=== PATIENT | male | born 1935 | race Caucasian/White ===

== ENCOUNTER 2018-03-06 18:18 | Emergency (ER) | payer MEDICARE, SELFPAY ==
[2018-03-06 18:19] VITALS: BP 169/91; PULSE 95; RESP 16; TEMP 36.8; O2SAT 97; BMI 24.2
--- NOTE | 2018-03-06 18:51 | CT_ITS ---
STUDY: CT ABDOMEN AND PELVIS WITHOUT CONTRAST REASON FOR EXAM: Male, 82 years old. Left lower abdominal pain. Possible hernia. RADIATION DOSAGE (If Supplied By Facility): CTDIvol = ( 7.5 ) mGy, DLP = ( 367.21 ) mGycm TECHNIQUE: Transaxial images were obtained from the dome of the diaphragm to the symphysis pubis with oral contrast, and without intravenous contrast. Sagittal and coronal images were reconstructed. Individualized dose optimization techniques were used for this CT. COMPARISON: None. FINDINGS: The visualized lung bases are unremarkable. The visualized portions of the heart are within normal limits. Please note the lack of intravenous contrast limits evaluation of solid visceral organs. There are scattered well-circumscribed low-attenuation foci within the liver the largest measuring up to 1.4 cm which may reflect underlying cysts or hemangiomas. There are gallstones within the gallbladder. Normal spleen. Normal pancreas. Normal bilateral adrenal glands. There is a round 12 mm high attenuation focus arising from the right kidney which may reflect a proteinaceous cysts. Normal left kidney. There is a small hiatal hernia. Normal small intestine. There are multiple colonic diverticula consistent with diverticulosis. There is a moderate-sized left inguinal hernia into which a segment of sigmoid colon herniates. There is no bowel obstruction. The appendix is visualized and appears normal. There is diffuse atherosclerotic calcification of the abdominal aorta, without a demonstrated aneurysm. Normal inferior vena cava. Normal retroperitoneum. Normal urinary bladder. There is enlargement of the prostate gland. There are diffuse degenerative changes of the visualized lumbar spine. There is a grade 1 anterior spondylolisthesis of L5 on S1. CT/Abdomen/Pel W ORAL Cont Only IMPRESSION: Left inguinal hernia containing a segment of sigmoid colon without evidence of an associated obstruction. Colonic diverticulosis. Atherosclerosis. Cholelithiasis. Indeterminate high attenuation focus arising from the right kidney which may reflect underlying proteinaceous cysts, consider ultrasound for further evaluation. Hiatal hernia. Enlarged prostate gland. Electronically Signed: Kady Higgins MD at 21:11 EST Tel , Service support ,
[2018-03-06 19:26] LABS: Absolute Lymphocyte Count 1.75 X10^3/ul (0.83-4.51); Absolute Neutrophil Count 4.8 X10^3/uL (2.0-7.7); Basophil# 0.03 X10^3/uL; Basophil% 0.4 % (0-1); Eosinophil# 0.16 X10^3/uL; Eosinophils% 2.2 % (0-5); Hematocrit 47.3 % (40-54); Hemoglobin 15.8 g/dl (13.0-16.5); Lymphocyte # 1.75 X10^3/ul (4.0); Lymphocyte % 23.7 % (19-41); Mean Corp Hgb Conc 33.4 g/gl (32-36); Mean Corpuscular Hgb 31.2 pg (27.0-32.0); Mean Corpuscular Volume 93.5 fL (80-94); Mean Platelet Vol. 10.7 fl (6.2-12.0); Monocyte# 0.63 X10^3/uL; Monocyte% 8.5 % (0-10); Neutrophil # 4.79 X10^3/uL (2.7-7.7); Neutrophil % 64.9 % (47-70); Platelet Count 234 K/mm3 (150-450); RBC Distribution Width CV 13.8 % (11.6-14.6); RBC Distribution Width SD 46.6 fl (35.1-43.9); Red Blood Count 5.06 M/mm3 (4.6-6.2); White Blood Count 7.4 K/mm3 (4.4-11.0)
[2018-03-06] MEDS: 0.9% Normal Saline 1,000 ML 125 ML IV (19:29)
[2018-03-06 19:38] LABS: POSITIVE COUNT NO; POSITIVE DIFFERENTIAL NO; POSITIVE MORPHOLOGY NO
[2018-03-06 20:03] LABS: Anion Gap 9 (5-15); BUN 9 mg/dL (7-18); BUN/Creat Ratio 9.3 RATIO (10-20); Calcium,Total 8.9 mg/dL (8.5-10.1); Chloride 108 mmol/L (98-107); Creatinine, Serum 0.96 mg/dL (0.70-1.30); EST Glomerular Filtration Rate 79 mL/min (>60); Est Glom Filt Rate - Afr Amer 96 mL/min (>60); Estimated Creatinine Clearance 54.51 ml/min; Glucose 98 mg/dL (74-106); Sodium Level 141 mmol/L (136-145)
[2018-03-06 20:08] LABS: Lactic Acid 1.1 mmol/L (0.4-2.0)
[2018-03-06 20:18] LABS: Bacteria 0 SEEN /hpf (None Seen); Mucous, Urine 0 SEEN /hpf (<or=2+); Red Blood Cells-Urine 0 SEEN /hpf (0-5); Squamous Epithelial Cells - UA 0 SEEN /hpf (0-5); White Blood Cells 0 SEEN /hpf (0-5)
[2018-03-06 20:25] LABS: Color, Urine Yellow (Yellow); Glucose, Dipstick Normal (Normal); Ketone-Dipstick Negative (Negative); Leukocyte Esterase-Dipstick 25 /ul (Negative); Nitrite-Dipstick Negative (Negative); Occult Blood-Urine 10 /ul (Negative); Protein-Dipstick Negative (Negative); Specific Gravity, Urine 1.015 (1.002-1.030); Urine Bilirubin Dipstick Negative (Negative); Urine Clarity Clear (Clear); Urine Urobilinogen Normal (Normal)
[2018-03-06 21:27] VITALS: RESP 16
--- NOTE | 2018-03-06 21:50 | ED.VISSUMM ---
- ER Visit Summary Date of Service: 03/06/18 Chief Complaint: [Abdominal pain] History of Present Illness: The patient is a 82 M [presents to the emergency department complaint of abdominal pain for about a month. Patient thinks he might have a hernia. Patient states that at times it feels like his left testicle can get sucked up into his abdomen and he asked the help bring it back down. Patient denies any fever or vomiting. He denies any blood in the stool or black tarry stool. Last bowel movement was earlier today. He denies any difficulty urinating. Patient denies any trauma to his abdomen.] Physical Examination: [HEENT-PERRLA, EOMI. Cranial nerves II through XII grossly intact. TMs clear. Mucous membranes moist. No adenopathy. Cardiovascular-regular rate and rhythm without murmur or ectopy Lungs-clear to auscultation, chest wall stable without crepitus or subcu emphysema Abdomen-normoactive bowel sounds, soft. Patient has tenderness to palpation over the left inguinal area with an area of fullness noted. Testicles are nontender and descended. Patient is not circumcised. There is no erythema or discoloration over the suspected hernia. Extremities-intact ?4, normal range of motion, normal pulses, atraumatic] Test Results: [CBC with differential obtained was normal. Chemistries were normal. Lactate was 1.1. Urinalysis was normal. CT scan of the abdomen pelvis with p.o. contrast obtained showed left inguinal hernia containing a segment of sigmoid colon without evidence of an associated obstruction. He had colonic diverticulosis. He had atherosclerosis. He had cholelithiasis. He had indeterminate high attenuation focus arising from the right kidney which may reflect underlying proteinaceous cyst consider ultrasound for further evaluation. Patient also had a hiatal hernia. Patient also noted to have enlarged prostate gland.] Emergency Department Course and Treatment: [Patient case will be discussed with surgeon on-call for follow-up.] Treatment Plan: [Patient will be given a prescription for Leblanc for pain. Patient advised use a stool softener daily.] Disposition: [Discharged home in stable condition] Impression: [Left inguinal hernia] This note was generated with [employer] software. It may contain incorrect words, spelling, and punctuation that were not noted in review of the chart prior to signing ED Disposition - Plan for ED Patient: Chief Complaint: Abd Pain Referrals: Pavan Rossi III, MD [Primary Care Provider] -
--- NOTE | 2018-03-06 21:53 | ED.DCSUM_ITS ---
- ER Visit Summary Date of Service: 03/06/18 Chief Complaint: [Abdominal pain] History of Present Illness: The patient is a 82 M [presents to the emergency department complaint of abdominal pain for about a month. Patient thinks he might have a hernia. Patient states that at times it feels like his left t esticle can get sucked up into his abdomen and he asked the help bring it back down. Patient denies any fever or vomiting. He denies any blood in the stool or black tarry stool. Last bowel movement was earlier today. He denies any difficulty urinating. Patient denies any trauma to his abdomen.] Physical Examination: [HEENT-PERRLA, EOMI. Cranial nerves II through XII cristal ssly intact. TMs clear. Mucous membranes moist. No adenopathy. Cardiovascular-regular rate and rhythm without murmur or ectopy Lungs-clear to auscultation, chest wall stable without crepitus or subcu emphysema Abdomen-normoactive bowel sounds, soft. Patient has tenderness to palpation over the left inguinal area with an area of fullness noted. Testicles are nontender and descended. Patient is not circumcised. There is no erythema or discoloration over the suspected hernia. Extremities-intact ?4, normal range of motion, normal pulses, atraumatic] Test Results: [CBC with differential obtained was normal. Chemistries were normal. Lactate was 1.1. Urinalysis was normal. CT scan of the abdomen pelvis with p.o. contrast obtained showed left inguinal hernia containing a segment of sigmoid colon without evidence of an associated obstruction. He had colonic diverticulosis. He had atherosclerosis. He had cholelithiasis. He had indeterminate high attenuation focus arising from the right kidney which may reflect underlying proteinaceous cyst consider ultrasound for further evaluation. Patient also had a hiatal hernia. Patient also noted to have enlarged prostate gland.] Emergency Department Course and Treatment: [Patient case will be discussed with surgeon on-call for follow-up.] Treatment Plan: [Patient will be given a prescription for [place]cloud for pain. Patient advised use a stool softener daily.] Disposition: [Discharged home in stable condition] Impression: [Left inguinal hernia] This note was generated with [employer] software. It may contain incorrect words, spelling, and punctuation that were not noted in review of the chart prior to signing ED Disposition - Plan for ED Patient: Chief Complaint: Abd Pain Referrals: Pavan Rossi III, MD [Primary Care Provider] -
--- NOTE | 2018-03-06 21:54 | DCINST.ED_ITS ---
ED Disposition - Plan for ED Patient: Chief Complaint: Abd Pain Instructions: ED Hernia Inguinal Prescriptions: Hydrocodone Bitart/Apap 5-325 [Candia 5MG-325MG] 1 tab PO Q4H PRN PRN 2 Days #14 tab PRN Reason: Pain Referrals: Pavan Rossi III, MD [Primary Care Provider] - Ander Rossi MD [STAFF PHYSICIAN] - 3-5 Days
[2018-03-06 22:14] VITALS: BP 159/93; PULSE 83; RESP 16; O2SAT 95
--- NOTE | 2018-03-06 22:15 | ED.RN ---
HOME PACK OF NORCO GIVEN PER MD ORDER. REVIEWED D/C INSTRUCTIONS, FOLLOW UP CARE, PRESCRIPTION, AND S/S THAT WOULD WARRANT A RETURN TO THE ED WITH PT. PT VERBALIZED AN UNDERSTANDING AND DENIES FURTHER QUESTIONS FOR THIS RN. PT SKIN P/W/D, RESP EVEN AND UNLABORED, PT A&O X 3, NO DISTRESS NOTED. PT AMBULATED OUT OF ED, GAIT STEADY.
== END 2018-03-06 22:17 | disposition home or self-care (01) ==
LOC: ED 19:13
PROVIDERS: Emergency Provider Emergency Medicine; Family Provider Family Medicine; PCP Family Medicine
DX: K40.90 Unilateral inguinal hernia, without obstruction or gangrene, not specified as recurrent (principal); K57.30 Diverticulosis of large intestine without perforation or abscess without bleeding; K80.20 Calculus of gallbladder without cholecystitis without obstruction; K44.9 Diaphragmatic hernia without obstruction or gangrene; I70.90 Unspecified atherosclerosis; N40.0 Benign prostatic hyperplasia without lower urinary tract symptoms
CPT/HCPCS: 74176; 80048; 81001; 83605; 85025; 96360; 96361; 99284; J7030; Q9967; A4216

== ENCOUNTER → 2018-03-13 08:43 | Outpatient (CLI) | payer MEDICARE, SELFPAY ==
[2018-03-12 14:33] VITALS: BMI 24.2
--- NOTE | 2018-03-13 08:47 | US_ITS ---
STUDY: ABDOMINAL ULTRASOUND - RIGHT UPPER QUADRANT REASON FOR VISIT: Male, 82 years old. Follow-up of gallstones, kidney mass TECHNIQUE: Ultrasound evaluation of the right upper quadrant was performed with real-time and static lopez-scale imaging. TECHNICAL QUALITY: Limited. Examination limited by bowel gas. COMPARISON: None. FINDINGS: Liver: The liver measures 15.7 cm. There is increased echogenicity consistent with fatty infiltration. The bile ducts are within normal limits. There is hepatic color flow. The direction of portal flow is hepatopetal. There is a 1.8 x 1.9 x 1.4 cm hepatic cyst. Gallbladder: Normal distended gallbladder. The gallbladder wall measures 2.8 mm. There is a negative sonographic Downs's sign. There is no pericholecystic fluid. There is a solitary echogenic gallstone within the gallbladder. Common Bile Duct (C.B.D.): The common bile duct measures 4.9 mm. Pancreas: There is diffuse atrophy of the pancreas. There is increased echogenicity of the pancreas. There is no demonstrated pancreatic mass or cyst. Right Kidney: Normal size of the right kidney. The right kidney measures 10.0 x 5.2 x 5.2 cm. Normal renal cortex. The right cortex measures 1.3 cm. There are 2 right renal cysts measuring 1.1 x 1.3 x 1.6 cm and 1.4 x 1.4 x 1.3 cm. There is no right hydronephrosis. US/Abdomen Limited IMPRESSION: 1. Hepatic cyst measuring 1.8 x 1.9 x 1.4 cm. 2. Cholelithiasis. There is no gallbladder wall thickening or pericholecystic fluid. 3. The pancreas is atrophic and demonstrates diffusely increased echogenicity. 4. 2 right renal cysts as described above. Electronically Signed: Chilo Marrufo MD at 17:03 EST , Service support ,
--- OUTSIDE RECORDS SUMMARY | 2018-05-18 00:01 | XMS RPT_ITS ---
:1935 Author Organization OHIP Support Name Relationship Address Phone MARY PELLETIER Unavailable [address] [place] [address] DR + [place] [address] EMANI PAYNE Unavailable [address] + [place] [address] R Unavailable Unavailable Unavailable MARY PELLETIER Unavailable [address] [place] [address] + [place] [address] EMANI PAYNE Unavailable [address] + [place] [address] R Unavailable Unavailable Unavailable MARY PELLETIER Unavailable [address] [place] [address] DR + [place] [address] EMANI PAYNE Unavailable [address] + [place] [address] R Unavailable Unavailable Unavailable MARY PELLETIER Unavailable [address] [place] [address] DR + [place] [address] EMANI PAYNE Unavailable [address] + [place] [address] R Unavailable Unavailable Unavailable MARY PELLETIER Unavailable [address] [place] [address] DR + [place] [address] EMANI PAYNE Unavailable [address] + [place] [address] R Unavailable Unavailable Unavailable MARY PELLETIER Unavailable [address] [place] [address] DR + [place] [address] EMANI PAYNE Unavailable [address] + [place] [address] R Unavailable Unavailable Unavailable YUAN PELLETIEREN Unavailable [address] + [place] [address] FÉLIXCORTEZHILLARYARIADNESATNAM SHELTONJolene Unavailable [address] + [place] [address] R Unavailable Unavailable Unavailable MARY PELLETIER Unavailable [address] + [place] [address] JORGEAJITHSATNAMJolene Unavailable [address] + [place] [address] R Unavailable Unavailable Unavailable MARY PELLETIER Unavailable [address] + [place] [address] FÉLIXEVITASATNAMJolene Unavailable [address] + [place] [address] R Unavailable Unavailable Unavailable Care Team Providers Name Role Phone Cebul III, Pavan Primary Care Unavailable Abhijit Bateman Attending Unavailable Cebul, Ander Attending Unavailable Cebul III, Pavan Referring Unavailable Cebul, Ander Attending Unavailable Cebul, Ander Referring Unavailable Cebul III, [place] Primary Care Unavailable Cebul, Ander Attending Unavailable Cebul, Ander Referring Unavailable Cebul III, [place] Primary Care Unavailable Cebul, Ander Attending Unavailable Cebul, Ander Referring Unavailable Cebul III, [place] Primary Care Unavailable Cebul III, [place] Primary Care Unavailable KittoBehzad muro Admitting Unavailable [place], Behzad Attending Unavailable Eli, [place] Consulting Unavailable [place], Behzad Admitting Unavailable [place], Behzad Attending Unavailable Cebul III, Pavan Primary Care Unavailable KittoeBehzad Consulting Unavailable KittoeBehzad Admitting Unavailable Eli, [place] Attending Unavailable Cebul III, Pavan Primary Care Unavailable Eli, Jace Consulting Unavailable KittoeBehzad Consulting Unavailable KittoBehzad muro Admitting Unavailable Kittojina, Behzad Attending Unavailable Cebul III, Pavan Primary Care Unavailable Eli, [place] Consulting Unavailable Behzad Acosta Consulting Unavailable PROBLEMS PROBLEMS DATE TYPE CONDITION / CODE ATTENDING STATUS SOURCE 03/12/2018 Unknown K80.20 - Calculus Ander Rossi Active [place] [facility] gallbladder [facility] cholecystitis Repository without obstruction / K80.20(ICD-10) 03/12/2018 Unknown N28.89 - Other Ander Rossi Active [place] specified disorders [facility] ureter / Repository N28.89(ICD-10) 03/06/2018 Unknown R10.9 - Unspecified UngurAbhijit Active [place] abdominal pain / Community R10.9(ICD-10) Hospital Repository PROCEDURES PROCEDURES No Procedure Records FoundRESULTS RESULTS DISCHARGE INSTRUCTION Observed: 03/18/2018 Status: F Source: [place] 6:00 PM [facility] REPOSITORY [facility] Medical Records Department [address] [place] [address] Instructions for Home/Discharge Instructions 03/18/18 1042 MR#: [id number] Acct: [id number] Name: RUSS CARSON Rep #: [id number] : 1935 82 From: Ander Rossi MD PCP: Pavan Rossi III, MD Status: DEP [facility] Discharge Diet: Light diet - advance as tolerated - if you have questions about your diet instructions, please talk to you doctor. Discharge Activity: May Not Drive - for 3-5 days or while taking narcotic pain medicine. May shower in (days): 1 Lifting Restrictions: 10 pounds Call your doctor if your incision/area has: Continuous Slow Oozing, Sudden Increased Bleeding, Increased Pain/ Swelling, Increased Redness, Foul Smelling Discharge Call your doctor if you observe: Fever of 101 or Higher Suture Line Care: Avoid Pulling/Pushing, Avoid Pinching/Bending Additional Dressing/Incision Instructions:: Change or remove dressing in 4 days. Leave steri-strips in place for 1 week. Allergies/Adverse Reactions: Allergies Penicillins Allergy (Verified 03/15/18 13:09) Unknown- been 30yrs ago Sulfa (Sulfonamide Antibiotics) Allergy (Verified 03/15/18 13:09) Unknown-been 30yrs ago Medications to take at Discharge tamsulosin 0.4 mg capsule 0.4 mg PO DAILY #30 cap 03/12/18 Primary Care Physician: Pavan Rossi III, MD [Primary Care Provider] - Test Results: Test results from this visit will be discussed in further detail at your follow-up appointment, if applicable. Please Follow Up With: Ander Rossi MD - [phone] When: Call to make an appointment to be seen in about 10 days. 03/18/18 1800 <Electronically signed by Ander Rossi MD> Date Ander Rossi MD CC: Pavan Rossi III, MD Signed OPERATIVE REPORT Observed: 03/18/2018 Status: F Source: [place] 6:00 PM [facility]POSITORY [facility] Medical Records Department [address] [place] [address] Operative Report 03/18/18 1143 MR#: [id number] Acct: [id number] Name: RUSS CARSON Rep #: [id number] : 1935 82 From: Ander Rossi MD PCP: Pavan Rossi III, MD Status: DEP [facility] Y Location: [facility] Problem List (1) Left inguinal hernia Status: Chronic Report of Operation Date of Procedure: 03/18/18 Pre-Operative Diagnosis: Sliding left inguinal hernia Post-Operative Diagnosis: Same Surgery/Procedure Performed:: Laparoscopic left inguinal herniorrhaphy. Bard 3 DMax mesh lot number [id number]. Reference #[id number]. Expiry date 10/23/2022. Secure strap lot number [id number]. Expiry date 11/16/2019 Description of Surgical Findings:: Timeout and informed consent was obtained. 82-year-old gent was taken the operative placement table underwent general endotracheal intubation anesthesia. Clindamycin 900 mg were given intravenously preoperatively. The abdomen sterilely prepped and draped. 0.5% Marcaine was used as a local anesthetic. Throughout the procedure total 30 cc was used. Skin sites were pre-anesthetized. A vertical infraumbilical incision was created holding sutures of 0 Vicryl placed varies needle inserted saline drop test performed the abdomen was insufflated with CO2 to a pressure of 10 mmHg pressure. A telemeter trocar inserted. No evidence of any trocar injuries. 5-minute ports were placed in the left and right lower quadrant. Superficial inspection failed to reveal any gross abnormalities other than that with sigmoid colon sliding within the left inguinal hernia. The sigmoid colon was dissected free. A ilioinguinal nerve block was performed. The peritoneum was incised superior and medial to the internal ring and carried laterally. Then the hernia sac was completely teased free were needed hemostasis obtained with hemo-lock clips. The sac was left completely intact with no tears but was completely inverted. The direct space indirect and femoral area nicely dissected free. A Bard 3 DMax large mesh was placed so as to cover the defect area. It nicely covered the indirect area direct and femoral area. It was secured in place superior and medially with secure strap. As noted excellent positioning was achieved. The peritoneum was approximated to itself with secure strap and a single hemo-lock clip. Complete obliteration to the mesh was achieved. Trochars were removed under visualization. The abdomen was allowed to deflate his CO2. The fascia at the umbilicus approximately up to 2-0 Vicryl [id number] suture. Skin edges approximated up to 4 Monocryl subdermal stitches. Steri-Strips Telfa and OpSite dressings applied. Sponge and instrument and needle counts were reported the surgeon to be correct. Blood loss was minimal. He tolerated the procedure well and was taken to the recovery area in satisfactory condition without apparent complication. Specimens none. Drains none. Blood loss minimal. Ander Rossi M.D., F.A.C.S. Type of Anesthesia:: General Anesthesiologist: Charles Bush 03/18/18 1800 <Electronically signed by Ander Rossi MD> Date Ander Rossi MD CC: Pavan Rossi III, MD; Ander Rossi MD Signed 12 LEAD ELECTROCARDIOGRAM Observed: 03/18/2018 Status: F Source: [place] 9:51 AM [facility] Cardiovascular Services [address] [place] [address] 12 Lead EKG 03/15/18 0515 MR#: [id number] Acct: [id number] Name: RUSS CARSON Rep #: [id number] : 1935 82 From: Jace Benitez MD Attending Dr: Behzad Acosta MD Status: DIS [place] Ordering Dr: Behzad Acosta MD Date: 03/15/18 Location: [facility] Sex: M C Admitted: 03/14/18 Test Reason : AM EKG Blood Pressure : / mmHG Vent. Rate : 080 BPM Atrial Rate : 416 BPM P-R Int : 000 ms QRS Dur : 094 ms QT Int : 386 ms P-R-T Axes : 000 -20 108 degrees QTc Int : 445 ms Atrial fibrillation Possible Lateral infarct , age undetermined Inferior infarct , age undetermined Abnormal ECG When compared with ECG of 14-MAR-2018 07:00, MANUAL COMPARISON REQUIRED, DATA IS UNCONFIRMED Confirmed by JACE BENITEZ MD ([id number]), tape editor RAHEEM TRUJILLO ([id number]) on 03/18/2018 9:51:13 AM Referred By: DR ACOSTA Confirmed By:JACE BENITEZ MD 03/18/18 0951 Date Jace Benitez MD CC: Behzad Acosta MD; Pavan Rossi III, MD Signed 12 LEAD EKG W/ Observed: 03/18/2018 Status: F Source: [place] RHYTHM STRIP 9:24 AM [facility]ORY [facility] Cardiovascular Services [address] [place] [address] 12 Lead EKG with Rhythm Strip 03/14/18 0700 MR#: [id number] Acct: [id number] Name: RUSS CARSON Rep #: [id number] : 1935 82 From: Jace Benitez MD Attending Dr: Ander Rossi MD Status: DEP [facility] Ordering Dr: Ander Rossi MD Date: 03/14/18 Location: Sex: M C Admitted: Test Reason : POST OP Blood Pressure : / mmHG Vent. Rate : 094 BPM Atrial Rate : 340 BPM P-R Int : 000 ms QRS Dur : 088 ms QT Int : 376 ms P-R-T Axes : 000 -07 245 degrees QTc Int : 470 ms Atrial fibrillation Inferior infarct (cited on or before 03-JUN-2003) Abnormal ECG Confirmed by JACE BENITEZ MD ([id number]), tape editor RAHEEM TRUJILLO ([id number]) on 03/18/2018 9:23:42 AM Referred By: Ander Rossi Confirmed By:JACE BENITEZ MD 03/18/18 0923 Date Jace Benitez MD CC: Pavan Rossi III, MD; Ander Rossi MD Signed DISCHARGE SUMMARY Observed: 03/15/2018 Status: F Source: [place] 11:14 AM [facility] Medical Records Department [address] [place] [address] Discharge Summary 03/15/18 1049 MR#: [id number] Acct: [id number] Name: RUSS CARSON Rep #: [id number] : 1935 82 From: Behzad Acosta MD PCP: Pavan Rossi III, MD Status: ADM [place] Y Location: [place] [address] Discharge Date and Diagnosis - Problem List Patient Problems: Active and Suspected Problems (Last Reviewed 03/14/18 @ 12:50 by Behzad Acosta MD) Afib (Acute) Date of Admission: 03/14/18 Date of Discharge: 03/15/18 - Primary Discharge Diagnosis Active and Suspected Problems (Last Reviewed 03/14/18 @ 12:50 by Behzad Acosta MD) Afib (Acute) - Secondary Discharge Diagnosis Chronic Problems (Last Reviewed 03/14/18 @ 12:50 by Behzad Acosta MD) Flutter-fibrillation (Chronic) Myocardial infarction (Chronic) Screening for intestinal cancer (Chronic) Kidney cysts (Chronic) Prostate enlargement (Chronic) Gallstones (Chronic) Left inguinal hernia (Chronic) Displaced fracture of shaft of right ulna (Chronic) Hospital Course and Treatment Imaging Results: 03/15/18 05:55 Nuclear Stress Test - Chemical [NM] AM (NON MEDS) Operations: - - ORIF right radius and ulnar fracturs. Summary of Care Provided: Patient is an 82-year-old gentleman discovered A. fib following colonoscopy 1. A. fib possibly paroxysmal in nature given patient previous diagnosis of A. fib. Patient has been admitted to a monitored bed for continuous telemetry monitoring. As part of his evaluation ordered a TSH d-dimer 2D echo (to rule out structural heart disease) as well as a nuclear stress test on 03/15/2018 to rule out ischemia. Consultation placed to cardiology. Dr Benitez's notes and recommendations reviewed. Patient age places him at the [id number] 2 score of at least 2 and will therefore require systemic anticoagulation to prevent strokes however in view of his scheduled left inguinal herniorrhaphy initiation of systemic anticoagulation was placed on hold. Prescription was written for patient for Eliquis 2.5 mg p.o. twice daily to be started following his procedure. Patient's 2D echo demonstrated normal left ventricular function with an ejection fraction of 55%. His nuclear stress test was negative for stress-induced ischemia. 2. Left inguinal herniorrhaphy scheduled to undergo repair on 03/18/2018 3. Generalized osteoarthritis 5. Remote history of GA in 1979 patient did not undergo any intervention 4. DVT prophylaxis SC Lovenox Patient Problems: Active and Suspected Problems (Last Reviewed 03/14/18 @ 12:50 by Behzad Acosta MD) Afib (Acute) Objective: GENERAL: cooperative HEENT: Atraumatic; moist oral mucosa EYES; Anicteric, Normal Conjunctiva NECK; supple, normal thyroid, RESPIRATORY: Diminished to auscultation bilaterally, CARDIOVASCULAR: Irregular S1 S2, GI: soft, non-tender, normoactive bowel sounds, : No Renal angle tenderness; EXTREMITIES: No edema, no clubbing, no cyanosis. MUSCULOSKELETAL: No Joint Tenderness; NEURO: Awake; no lateralizing signs. SKIN: No Rash PSYCH; Normal affect - Physical Exam Vital Signs Temp Pulse Resp BP Pulse Ox 97.6 F L 75 16 114/73 92 03/15/18 09:32 03/15/18 09:32 03/15/18 09:32 03/15/18 09:32 03/15/18 09:32 Oxygen Flow Rate (L/min) 2 Oxygen Delivery Method Room Air Weight: 65.771 kg Body Mass Index (BMI) 22.0 Intake and Output for Last 24 Hours Intake Total 1325 / 1325 490 / 490 Balance 1325 / 1325 490 / 490 Laboratory Tests Past 24 Hrs WBC 8.4 RBC 4.35 L Hgb 13.8 Hct 40.9 MCV 94.0 MCH 31.7 MCHC 33.7 RDW 13.7 RDW Differential 45.3 H WBC RBC Hgb Hct Discharge Diet: No Restrictions Home Medications: Medications to take at Discharge tamsulosin 0.4 mg capsule 0.4 mg PO DAILY #30 cap 03/12/18 Apixaban [Eliquis] 2.5 mg PO BID #60 tablet 03/15/18 Following Prescrptions Were Given to Patient: Apixaban [Eliquis] 2.5 mg PO BID #60 tablet Primary Care Physician: Pavan Rossi III, MD [Primary Care Provider] - Disposition: Home Minutes spent on discharge:: 35 Patient Condition:: Stable Medical Necessity - Tobacco Use Smoking Status: Former smoker Meaningful Use Info Meaningful Use Diagnoses (Choose all that apply): None applicable Code Visit OBSV E AND M: 39268 Observation care discharge 03/15/18 1114 <Electronically signed by Behzad Acosta MD> Date Behzad Acosta MD Cosigner Signature (if applicable): Date CC: Behzad Acosta MD; Pavan Rossi III, MD Signed DISCHARGE INSTRUCTION Observed: 03/15/2018 Status: F Source: [place] 10:49 AM [facility] Medical Records Department [address] [place] [address] Instructions for Home/Discharge Instructions 03/15/18 1046 MR#: [id number] Acct: [id number] Name: RUSS CARSON Rep #: [id number] : 1935 82 From: Behzad Acosta MD PCP: Pavan Rossi III, MD Status: ADM [place] - Discharge Diagnoses Current Active Problems: Current Active and Chronic Problems (Last Reviewed 03/14/18 @ 12:50 by Behzad Acosta MD) Flutter-fibrillation (Chronic) Myocardial infarction (Chronic) Afib (Acute) You will use the following diet at home:: No restrictions Allergies/Adverse Reactions: Allergies Penicillins Allergy (Verified 03/14/18 08:13) Unknown- been 30yrs ago Sulfa (Sulfonamide Antibiotics) Allergy (Verified 03/14/18 08:13) Unknown-been 30yrs ago Medications to take at Discharge tamsulosin 0.4 mg capsule 0.4 mg PO DAILY #30 cap 03/12/18 Apixaban [Eliquis] 2.5 mg PO BID #60 tablet 03/15/18 The following prescriptions were given: Apixaban [Eliquis] 2.5 mg PO BID #60 tablet Primary Care Physician: Pavan Rossi III, MD [Primary Care Provider] - Test Results: Test results from this visit will be discussed in further detail at your follow-up appointment, if applicable. Proposed Discharge Date: 03/15/18 03/15/18 1049 <Electronically signed by Behzad Acosta MD> Date Behzad Acosta MD CC: Jace Benitez MD; Pavan Rossi III, MD Signed STRESS REPORT Observed: 03/15/2018 Status: F Source: [place] 10:02 AM [facility]ORY [facility] Cardiovascular Services [address] [place] [address] MR#: [id number] Acct: [id number] Name: RUSS CARSON Rep #: [id number] : 1935 82 From: Jace Benitez MD Primary Care: Pavan Rossi III, MD Status: ADM [place] Ordering Dr: Sex: M C Stress Test Report Pharmacologic myocardial perfusion stress test. 82-year-old male with a history of atrial fibrillation. Stress protocol: Resting EKG demonstrates atrial fibrillation with a rate of 98 bpm. 0.4 mg of regadenoson was infused per usual protocol followed by rapid intravenous saline flush injection continuous EKG monitoring was performed. Patient maintained atrial fibrillation throughout the recording. The maximum heart rate attained was 115 bpm which was 83% of maximum predicted heart rate the maximum workload was 1 metabolic equivalent. At rest there were no ST or T wave changes noted suggest abnormal flow reserve at peak infusion no ST or T wave changes were noted suggest abnormal flow reserve. The resting blood pressure was 126/78 with a final blood pressure 120/72 mmHg. Myocardial perfusion protocol. 11.3 mCi of technetium 99m sestamibi was injected at rest. 0.4 mg of regadenoson was infused per usual protocol peak infusion 33.5 mCi of technetium 99m sestamibi was injected stress images were obtained stress and rest images were reconstructed and compared in the short axis vertical long and horizontal long axis. Gated images were also obtained The fusion SPECT analysis: Review of the stress images demonstrate normal uptake of tracer noted in the septum anterior wall and anterolateral wall. There is a medium-sized perfusion defect involving the mid inferior wall and the inferior apical wall and inferolateral wall. This is present on the stress and rest images to a similar extent. The above is suggestive of a previous inferior, inferior apical and inferolateral infarct. No ischemia is noted. Gated SPECT analysis: The gated ejection fraction is noted to be 62%. Conclusion: Myocardial perfusion stress test with no evidence of ischemia. Mid inferior, inferior apical, inferolateral infarct noted. 03/15/18 1002 <Electronically signed by Jace Benitez MD> Date Jace Benitez MD CC: Behzad Acosta MD; Pavan Rossi III, MD Date Dictated: 03/15/18958 Date Transcribed: 03/15/18958 International Sourcing Manager: [place] Signed BASIC METABOLIC Collected: 03/15/2018 Status: F Source: [place] PROFILE ([facility]) 3:58 AM [facility] REPOSITORY TYPE CODE TESTS RESULT OUT OF RANGE REFERENCE UNITS LAB L501.0100 74-106 mg/dL High GLU 107 Result Comment: Fasting Glucose result from 100 to 125 mg/dL suggests IMPAIRED HOMEOSTASIS per A.D.A. criteria. Please note revised GLUCOSE reference range effective 2017. LAB L501.1000 7-18 mg/dL Normal BUN 12 LAB L501.1100 0.70-1.30 mg/dL Normal CREAT,SERUM 0.84 Result Comment: The validity of the calculated GFR AND GFRAA in patients over 70 years has not been determined. Clinical correlation is essential. LAB L501.1110 >60 mL/min Normal EST GFR 93 Result Comment: Non- GFR Calc LAB L501.1115 >60 mL/min Normal EST GFR - AA 112 Result Comment: GFR Calc LAB L501.1255 ml/min Normal Estimated CRCL 61.99 LAB L501.1300 10-20 RATIO Normal BUN/CRE 14.3 LAB L501.2200 8.5-10 mg/dL Low .1 CA 8.2 LAB L501.5300 136-14 mmol/L Normal 5 NA 141 LAB L501.5600 3.5-5. mmol/L Normal 1 K 3.8 LAB L501.5900 98-107 mmol/L High CL 108 LAB L501.6100 21.0-3 mmol/L Normal 2.0 CO2 24.0 LAB L501.6200 5-15 Normal GAP 9 Performed By: #### L500.2500, L300.3900, L300.4310 #### [facility] [address] [place], [place], [id number] PROTHROMBIN TIME W/INR Collected: 03/15/2018 Status: F Source: [place] 3:58 AM [facility] REPOSITORY TYPE CODE TESTS RESULT OUT OF RANGE REFERENCE UNITS LAB L300.4150 11.7-14.9 SECONDS Normal PROTIME 14.2 LAB L300.4200 Normal INR 1.1 Performed By: #### L500.2500, L300.3900, L300.4310 #### [facility] [address] [place], [place], [id number] PARTIAL THROMBOPLAST Collected: 03/15/2018 Status: F Source: [place] TIME 3:58 AM [facility] REPOSITORY TYPE CODE TESTS RESULT OUT OF RANGE REFERENCE UNITS LAB L300.4310 24.1-36.2 Seconds Normal PTT 28.0 Performed By: #### L500.2500, L300.3900, L300.4310 #### [facility] [address] [facility], [address] CBC W/DIFF, AUTOMATED Collected: 03/15/2018 Status: F Source: [place] 3:58 AM [facility] REPOSITORY TYPE CODE TESTS RESULT OUT OF RANGE REFERENCE UNITS LAB L100.1000 4.4-11.0 K/mm3 Normal WBC 8.4 LAB L100.1200 4.6-6.2 M/mm3 Low RBC 4.35 LAB L100.1300 13.0-16.5 g/dl Normal HGB 13.8 LAB L100.1400 40-54 % Normal HCT 40.9 LAB L100.1500 80-94 fL Normal MCV 94.0 LAB L100.1600 27.0-32.0 pg Normal MCH 31.7 LAB L100.1700 32-36 g/gl Normal MCHC 33.7 LAB L100.1810 11.6-14.6 % Normal RDW CV 13.7 LAB L100.1820 35.1-43.9 fl High RDW SD 45.3 LAB L100.1900 150-450 K/mm3 Normal PLT 208 LAB L100.2000 6.2-12.0 fl Normal MPV 10.7 LAB L100.2100 47-70 % High NEUT% 74.9 LAB L100.2200 19-41 % Low LY% 13.4 LAB L100.2300 0-10 % High MONO% 10.6 LAB L100.2400 0-5 % Normal EO% 0.8 LAB L100.2500 0-1 % Normal BASO% 0.1 LAB L100.2550 0.0-0.9 % Normal IM GRAN % 0.200 Result Comment: IG% - Immature Granulocytes (promyelocytes, myelocytes and metamyelocytes) > 1% indicates that a LEFT SHIFT is Present. LAB L100.2620 2.0-7.7 X10 3/uL Normal Absolute Neut 6.3 LAB L100.2720 0.83-4.51 X10 3/ul Normal Absolute Lymph 1.13 Performed By: #### L100.0100 #### [facility] [address] [place], [address] CONSULTATION Observed: 03/14/2018 Status: F Source: [place] 5:38 PM [facility]ITORY [facility] Medical Records Department [facility] [place] [address] [address] Consultation 03/14/18 1719 MR#: [id number] Acct: [id number] Name: RUSS CARSON Rep #: [id number] : 1935 82 From: Jace Benitez MD PCP: Pavan Rossi III, MD Status: ADM [place] Y Location: [place] [address] Reason for Consult Date of Consultation: 03/14/18 Reason for Consultation: Evaluation of irregular heartbeat History of Present Illness: The patient is a 82 year old M with a past medical history significant for GA diagnosed in 1979 with no intervention, previous diagnosis of a flutter more than 20 years ago who was sent to the ED from the OR after colonoscopy. Patient was apparently undergoing evaluation for an upcoming left inguinal herniorrhaphy scheduled on 03/18/2018. Patient was found to have irregular heartbeat EKG demonstrated A. fib. Patient was subsequently sent to the ED and admitted to a monitored bed for further management. On further questioning patient denied any palpitation denied any chest pain denied any shortness of breath no nausea no vomiting. Patient states he was told he had a flutter more than 20 years ago but has since not been evaluated by any physician. He does not feel any of his irregularities. He is currently asymptomatic. He has had no dizziness or diaphoresis no near syncope or syncope. Past Medical History Allergies/Adverse Reactions: Allergies Penicillins Allergy (Verified 03/14/18 08:13) Unknown- been 30yrs ago Sulfa (Sulfonamide Antibiotics) Allergy (Verified 03/14/18 08:13) Unknown-been 30yrs ago Home Medications: Ambulatory Orders Medication Instructions Recorded tamsulosin 0.4 mg capsule 0.4 mg PO DAILY #30 cap 03/12/18 Past Medical History (Chronic Problems): Chronic Problems (Last Reviewed 03/14/18 @ 12:50 by Behzad Acosta MD) Flutter-fibrillation (Chronic) Myocardial infarction (Chronic) Screening for intestinal cancer (Chronic) Kidney cysts (Chronic) Prostate enlargement (Chronic) Gallstones (Chronic) Left inguinal hernia (Chronic) Displaced fracture of shaft of right ulna (Chronic) - *Family History Maternal Family History: Family History (Last Reviewed 03/14/18 @ 12:50 by Behzad Acosta MD) Sister Diabetes History Items: - - No coronary artery disease Paternal Family History: Family History (Last Reviewed 03/14/18 @ 12:50 by Behzad Acosta MD) Sister Diabetes History Items: - - No coronary artery disease Offspring Family History: Family History (Last Reviewed 03/14/18 @ 12:50 by Behzad Acosta MD) Sister Diabetes History Items: No pertinent history Smoking Status: Former smoker Alcohol: None Drugs: None Review of Systems - Review of Systems General: Denies: Fever, Night Sweats, Fatigue HEENT: Denies: Vision Change Cardiovascular: Denies: Chest Discomfort, Shortness of Breath, Orthopnea, PND, Peripheral Edema, Palpitations, Lightheadedness, Dizziness, Near Syncope, Syncope Respiratory: Denies: Cough, Sputum Production, Hemoptysis Gastrointestinal: Denies: Hematemesis, Hematochezia, Melena Genitourinary: Denies: Dysuria, Hematuria Muscoloskeletal: Denies: Myalgias Skin: Denies: Rash Neurological: Denies: Dizziness Psychiatric: Denies: Anxiety Endocrine: Denies: Unexplained Weight Loss Hematologic/ Lymphatic: Denies: Anemia Subjectve: Pleasant gentleman in no apparent distress Objective: Vital Signs Temp Pulse Resp BP Pulse Ox 98.3 F 80 16 115/74 93 03/14/18 16:03 03/14/18 16:39 03/14/18 16:03 03/14/18 16:03 03/14/18 16:03 Oxygen Flow Rate (L/min) 2 Oxygen Delivery Method Room Air Weight: 145 lb Body Mass Index (BMI) 22.0 Intake and Output for Last 24 Hours Intake Total 427 / 427 Balance 427 / 427 General: Awake, Alert, Oriented x 3 HEENT: PERRL, EOMI, Sclera Non Icteric Neck: Supple, Good ROM, No Lymph Node Enlargement Lungs: Clear to auscultation Cardiovascular: Irregular Rhythm, Normal S1, Normal S2, No Murmurs, No Rubs, No Gallops Vascular: No Carotid Bruits, Normal Femoral Pulses, Normal Radial Pulses, Normal Dorsalis Pedal Pulse, Normal Posterior Tibial Pulses Abdomen: Bowel Sounds Present, Soft, Non Tender, No HSM, No Organomegaly Extremities: No Cyanosis, No Clubbing, No edema Skin: No Rashes Lymphatic: No Lymph Node Enlargement Neurological: No Focal Motor or Sensory Deficit 03/14/18 08:12: WBC 6.5, RBC 4.66, Hgb 14.4, Hct 43.8, MCV 94.0, MCH 30.9, MCHC 32.9, RDW 13.8, RDW Differential 47.3 H, Plt Count 200, MPV 11.0, Immature Gran % (Auto) 0.300, Neut % (Auto) 80.1 H, Lymph % (Auto) 11.5 L, Cannon % (Auto) 6.9, Eos % (Auto) 0.9, Baso % (Auto) 0.3, Absolute Neuts (auto) 5.2, Total Counted Not Reportable 03/14/18 08:12: Sodium 141, Potassium 4.4, Chloride 107, Carbon Dioxide 24.0, Anion Gap 10, BUN 14, Creatinine 0.91, Est GFR (MDRD) Af Amer 102, Est GFR (MDRD) Non-Af 85, BUN/Creatinine Ratio 15.4, Glucose 143 H, Calcium 8.4 L, Troponin I < 0.015 03/14/18 08:12: Total Bilirubin 1.20 H, Direct Bilirubin 0.11 03/14/18 08:12: B-Natriuretic Peptide 77.2 03/14/18 08:12: D-Dimer Quant (PE/DVT) < 0.27 L 03/14/18 08:12: Magnesium 1.9 03/14/18 11:20: Troponin I < 0.015 03/14/18 14:35: Troponin I < 0.015 Rhythm: EKG: Atrial fibrillation with a controlled ventricular response rate ECHO: Preserved left ventricular systolic function estimated at 55% Assessment/Plan 1. Atrial fibrillation * Patient presents with atrial fibrillation which is detected during the colonoscopy. The patient is asymptomatic. Previous electrocardiograms from 2016 demonstrated that the patient was noted to be atrial fibrillation. The above as well as the controlled ventricular response rate suggest that the patient has chronic persistent atrial fibrillation and that this was not a new finding. * His echocardiogram corroborates mild atrial enlargement suggesting chronicity of the above. * He appears to have a chads vasc score of 2 and my recommendation would be for us to put him on rivaroxaban 15 mg a day if he is not scheduled to undergo any further invasive testing. * He has been scheduled for a pharmacologic stress test tomorrow, and unless there is significant ischemia detected I would recommend that he be discharged after the test. * * Thank you for allowing me to participate in the care of your patient. Please don't hesitate to call if any issues arise 03/14/18 7448 <Electronically signed by Jace Benitez MD> Date Jace Benitez MD Cosigner Signature (if applicable): Date CC: Jace Benitez MD; Pavan Rossi III, MD Signed TROPONIN-I Collected: 03/14/2018 Status: F Source: [place] 2:35 PM [facility] REPOSITORY Order Comment: 'TROP' Serial specimen #1, #2 or #3: 3 TYPE CODE TESTS RESULT OUT OF RANGE REFERENCE UNITS LAB L501.4010 <0.045 ng/mL Normal < 0.015 TROPONIN-I Result Comment: TROPONIN-I EXPECTED VALUES <0.045 Negative 0.045 - 0.590 Consistent with Cardiac Damage > OR = 0.600 Critical Value Not every elevated troponin is indicative of GA. These values should be used with clinical judgement in examining the patient's clinical picture for diagnosis. To establish a diagnosis of GA versus myocardial injury, there must be a demonstrated rise and/or fall in the troponin values, in addition to ischemic symptoms, EKG changes, new regional wall motion abnormality, and/or angiographical evidence. PLEASE NOTE: REFERENCE RANGES EDITED 17 Performed By: #### L501.4010 #### [facility] [address] [facility], [address] ECHOCARDIOGRAM COMPLETE Observed: 03/14/2018 Status: F Source: [place] 1:50 PM [facility] REPOSITORY [facility] Cardiovascular Services [address] [place] [address] Echo Complete 03/14/18 0942 MR#: [id number] Acct: [id number] Name: RUSS CARSON Rep #: [id number] : 1935 82 From: Aristeo Dyson MD Attending Dr: Behzad Acosta MD Status: ADM MILAD Ordering Dr: Behzad Acosta MD Date: 03/14/18 Location: [facility] Sex: M C Admitted: 03/14/18 Reason For Study: ATRIAL FIB-FLUTTER Procedure This was a 2D Doppler, Color Flow transthoracic echocardiogram. The study was technically difficult. Exam performed portable in ED. Left Ventricle Normal LV size. Left ventricular systolic function is normal. The estimated ejection fraction is 55 %. Unable to assess diastolic dysfunction. No regional wall motion abnormalities noted. Right Ventricle Mildly dilated right ventricle. Normal systolic function. Atria The left atrium is moderately enlarged. The right atrium is mildly enlarged. No doppler evidence for ASD. Mitral Valve There is no mitral annular calcification. Normal mitral valve. Mild (1+) mitral valve insufficiency. Tricuspid Valve Normal tricuspid valve. Mild tricuspid valve insufficiency. Right ventricular systolic pressure estimated to be 27 mmHg. Aortic Valve Trisinus/trileaflet aortic valve. Mild focal aortic valve calcification. Pulmonic Valve The pulmonic valve is not well visualized. Trivial pulmonic valve insufficiency. Great Vessels Normal sized aortic root. Pericardium/Pleural No pericardial effusion. MMode/2D Measurements AND Calculations LVIDd: 4.4 cm IVSd: 0.97 cm Ao root diam: 3.2 cm LVIDs: 2.9 cm LVPWd: 1.1 cm RVDd: 4.0 cm FS: 34.6 % LAV(MOD-bp): 84.2 ml LVAd ap4: 26.9 cm2 SV(MOD-sp4): 45.1 ml LAV(MOD-bp) Indexed: 46.7 ml/m2 EDV(MOD-sp4): 81.5 ml LAV(MOD-sp2): 78.9 ml EDV(sp4-el): 83.5 ml LAV(MOD-sp4): 75.9 ml LVAs ap4: 16.2 cm2 ESV(MOD-sp4): 36.4 ml ESV(sp4-el): 36.6 ml EF(MOD-sp4): 55.3 % EF(sp4-el): 56.1 % SV(sp4-el): 46.8 ml LA A4 area: 25.6 cm2 LA dimension(2D): 4.6 cm RA A4 area: 22.2 cm2 Doppler Measurements AND Calculations MV E max ryan: 79.4 cm/sec Ao V2 max: 139.5 cm/sec LV V1 max: 79.7 cm/sec Ao max P.8 mmHg LV V1 max P.6 mmHg PA V2 max: 129.1 cm/sec PI end-d ryan: 72.1 cm/sec TR max ryan: 246.6 cm/sec TR max P.4 mmHg Interpretation Summary The study was technically difficult. Left ventricular systolic function is normal. The estimated ejection fraction is 55 %. Mildly dilated right ventricle. The left atrium is moderately enlarged. The right atrium is mildly enlarged. Mild (1+) mitral valve insufficiency. Mild tricuspid valve insufficiency. Mild focal aortic valve calcification. Trivial pulmonic valve insufficiency. Right ventricular systolic pressure estimated to be 27 mmHg. Unable to assess diastolic dysfunction. Ordering Physician: Behzad Acosta Referring Physician: PAVAN ROSSI III Performed By: Fadia Mercado [facility] 03/14/181348 Date Aristeo Dyson MD CC: Behzad Acosta MD; Pavan Rossi III, MD Date Dictated: 03/14/1842 Date Transcribed: 03/14/181348 International Sourcing Manager: Signed HISTORY AND PHYSICAL Observed: 03/14/2018 Status: F Source: [place] EXAM 12:57 PM [facility] REPOSITORY [facility] Medical Records Department [address] [place] [id number] History and Physical 03/14/18924 MR#: [id number] Acct: [id number] Name: RUSS CARSON Rep #: [id number] : 1935 82 From: Behzad Acosta MD PCP: Pavan Rossi III, MD Status: ADM MILAD Y Location: [place] [address] Problem List (1) Afib Status: Acute (2) Flutter-fibrillation Status: Chronic (3) Myocardial infarction Status: Chronic (4) Screening for intestinal cancer Status: Chronic (5) Kidney cysts Status: Chronic (6) Prostate enlargement Status: Chronic (7) Gallstones Status: Chronic (8) Left inguinal hernia Status: Chronic (9) Displaced fracture of shaft of right ulna Status: Chronic Qualifiers: Encounter type: initial encounter Fracture type: closed Fracture morphology: oblique Qualified Code(s): S52.231A - Displaced oblique fracture of shaft of right ulna, initial encounter for closed fracture (10) Displaced segmental fracture of shaft of radius, right arm, initial encounter for closed fracture Status: Acute Qualifiers: Encounter type: initial encounter Qualified Code(s): S52.361A - Displaced segmental fracture of shaft of radius, right arm, initial encounter for closed fracture History of Present Illness Date of Admission: 03/14/18 Chief Complaint: Irregular heartbeat The patient is a 82 year old M past medical history significant for GA diagnosed in 1979 with no intervention, previous diagnosis of a flutter more than 20 years ago who was sent to the ED from the OR after colonoscopy. Patient was apparently undergoing evaluation for an upcoming left inguinal herniorrhaphy scheduled on 03/18/2018. Patient was found to have irregular heartbeat EKG demonstrated A. fib. Patient was subsequently sent to the ED and admitted to a monitored bed for further management. On further questioning patient denied any palpitation denied any chest pain denied any shortness of breath no nausea no vomiting. Patient states he was told he had a flutter more than 20 years ago but has since not been evaluated by any physician. Patient was not sure whether he is going in and out of heart rhythm. Past Medical History Past Medical History (Chronic Problems): Chronic Problems Flutter-fibrillation (Chronic) Myocardial infarction (Chronic) Screening for intestinal cancer (Chronic) Kidney cysts (Chronic) Prostate enlargement (Chronic) Gallstones (Chronic) Left inguinal hernia (Chronic) Displaced fracture of shaft of right ulna (Chronic) Medical History: Medical History (Last Reviewed 03/14/18 @ 12:50 by Behzad Acosta MD) Screening for intestinal cancer (Acute) Z12.10 Kidney cysts (Acute) N28.1 Prostate enlargement (Acute) N40.0 Gallstones (Acute) K80.20 Left inguinal hernia (Acute) K40.90 Displaced fracture of shaft of right ulna (Acute) S52.201A Displaced segmental fracture of shaft of radius, right arm, initial encounter for closed fracture (Acute) S52.361A Allergies Penicillins Allergy (Verified 03/14/18 08:13) Unknown- been 30yrs ago Sulfa (Sulfonamide Antibiotics) Allergy (Verified 03/14/18 08:13) Unknown-been 30yrs ago Home Medications: Ambulatory Orders Medication Instructions Recorded tamsulosin 0.4 mg capsule 0.4 mg PO DAILY #30 cap 03/12/18 Surgical History: Surgical History (Last Reviewed 03/14/18 @ 12:50 by Behzad Acosta MD) history ORIF right arm Smoking Status: Former smoker - *Family History Maternal Family History: Family History (Last Reviewed 03/14/18 @ 12:50 by Behzad Acosta MD) Sister Diabetes History Items: - - No coronary artery disease Paternal Family History: Family History (Last Reviewed 03/14/18 @ 12:50 by Behzad Acosta MD) Sister Diabetes History Items: - - No coronary artery disease Offspring Family History: Family History (Last Reviewed 03/14/18 @ 12:50 by Behzad Acosta MD) Sister Diabetes History Items: No pertinent history Review of Systems Constitutional: Denies: Anorexia, Chills, Fever, Night Sweats, Weight Change HEENT: Denies: Head Aches, Sinus Congestion, Sinus Drainage Cardiovascular: Denies: Chest Pain, Orthopnea, Palpitations, Paroxysmal Noc. Dyspnea Respiratory: Denies: Cough, Shortness of breath at rest, Shortness of breath upon exertion, Sputum production Gastrointestinal: Denies: Abdominal Pain, Hematemesis, Hematochezia, Nausea, Melena, Vomiting Genitourinary: Denies: Dysuria, Frequency, Hematuria, Urgency Musculoskeletal: Reports: Joint Pain. Denies: Joint Tenderness Skin: Denies: Rash Neurological: Denies: Focal weakness, Numbness, Tingling Psychiatric: Denies: Homicidal Ideations, Suicidal Ideations Hematologic/ Lymphatic: Denies: Easy Bruising, Easy Bleeding VTE Information - Inpt Only VTE Present on Admission: No VTE Mechan Device Prophylaxis: Knee High CHERI Hose VTE Pharm Prophylaxis ordered?: Yes Patient Problems: Active and Suspected Problems Afib (Acute) Objective: GENERAL: cooperative HEENT: Atraumatic; moist oral mucosa EYES; Anicteric, Normal Conjunctiva NECK; supple, normal thyroid, RESPIRATORY: Diminished to auscultation bilaterally, CARDIOVASCULAR: Irregular S1 S2, GI: soft, non-tender, normoactive bowel sounds, : No Renal angle tenderness; EXTREMITIES: No edema, no clubbing, no cyanosis. MUSCULOSKELETAL: No Joint Tenderness; NEURO: Awake; no lateralizing signs. SKIN: No Rash PSYCH; Normal affect - Physical Exam Vital Signs Temp Pulse Resp BP Pulse Ox 97.5 F L 82 19 H 98/87 H 94 03/14/18 08:10 03/14/18 08:14 03/14/18 08:14 03/14/18 08:14 03/14/18 08:14 Oxygen Flow Rate (L/min) 2 Oxygen Delivery Method Nasal Cannula Weight: 67.585 kg Body Mass Index (BMI) 22.6 Laboratory Tests Past 24 Hrs WBC 6.5 RBC 4.66 Hgb 14.4 Hct 43.8 MCV 94.0 MCH 30.9 MCHC 32.9 RDW 13.8 RDW Differential 47.3 H Assessment/Plan All Active Problems Afib (Acute) Displaced segmental fracture of shaft of radius, right arm, initial encounter for closed fracture (Acute) Patient is an 82-year-old gentleman discovered A. fib following colonoscopy 1. A. fib possibly paroxysmal in nature given patient previous diagnosis of A. fib. Patient has been admitted to a monitored bed for continuous telemetry monitoring. As part of his evaluation ordered a TSH d-dimer 2D echo (to rule out structural heart disease) as well as a nuclear stress test on 03/15/2018 to rule out ischemia. Consultation placed to cardiology. Patient age places him at the [id number] 2 score of at least 2 and will therefore require systemic anticoagulation to prevent strokes however in view of his scheduled left inguinal herniorrhaphy will hold off. 2. Left inguinal herniorrhaphy scheduled to undergo repair on 03/18/2018 3. Generalized osteoarthritis 5. Remote history of GA in 1979 patient did not undergo any intervention 4. DVT prophylaxis SC Lovenox Code Visit OBSV E AND M: 40035 Initial observation care L3 03/14/18 1257 <Electronically signed by Behzad Acosta MD> Date Behzad Acosta MD Cosigner Signature: Date (if applicable) CC: Behzad Acosta MD; Pavan Rossi III, MD Signed TROPONIN-I Collected: 03/14/2018 Status: F Source: [place] 11:20 AM [facility] REPOSITORY Order Comment: 'TROP' Serial specimen #1, #2 or #3: 2 TYPE CODE TESTS RESULT OUT OF RANGE REFERENCE UNITS LAB L501.4010 <0.045 ng/mL Normal < 0.015 TROPONIN-I Result Comment: TROPONIN-I EXPECTED VALUES <0.045 Negative 0.045 - 0.590 Consistent with Cardiac Damage > OR = 0.600 Critical Value Not every elevated troponin is indicative of GA. These values should be used with clinical judgement in examining the patient's clinical picture for diagnosis. To establish a diagnosis of GA versus myocardial injury, there must be a demonstrated rise and/or fall in the troponin values, in addition to ischemic symptoms, EKG changes, new regional wall motion abnormality, and/or angiographical evidence. PLEASE NOTE: REFERENCE RANGES EDITED 17 Performed By: #### L501.4010 #### [facility] [address] [facility] [address] [facility] [address] [place], [address] EMERGENCY DEPARTMENT Observed: 03/14/2018 Status: F Source: [place] SUMMARY 9:19 AM [facility] REPOSITORY [facility] Medical Records Department [address] [facility] [place] [address] Emergency Department Summary 03/14/18 0916 MR#: [id number] Acct: [id number] Name: RUSS CARSON Rep #: [id number] : 1935 82 From: Abhijit Bateman DO PCP: Pavan Rossi III, MD Status: REG ER - ER Visit Summary Date of Service: 03/14/18 Chief Complaint: [Atrial fibrillation] History of Present Illness: The patient is a 82 M [presents to the emergency department from the endoscopy suite where he was undergoing a colonoscopy today. Patient was noted to go into an abnormal heart rhythm and EKG performed in endoscopy showed atrial fibrillation. Patient does not have a history of this. He denies any chest pain or palpitations. He denies feeling short of breath. He denies recent illness. Patient scheduled to have a hernia repair next week. General surgeon Dr. Ander Rossi discussed the case with hospitalist who advised patient come through the emergency department.] Physical Examination: [HEENT-PERRLA, EOMI. Cranial nerves II through XII grossly intact. TMs clear. Mucous membranes moist. No adenopathy. Cardiovascular-irregularly irregular. No murmurs auscultated. Lungs-clear to auscultation, chest wall stable without crepitus or subcu emphysema Abdomen-normoactive bowel sounds, soft, nontender, no rebound or rigidity, no peritoneal signs. Extremities-intact 4, normal range of motion, normal pulses, atraumatic] Test Results: [EKG obtained showed atrial fibrillation with a ventricular rate of 94 bpm with no acute I segment changes. Patient did have Q waves inferiorly and is possible he may have had an old inferior wall infarct. CBC with differential showed a white blood cell count 6.5, hemoglobin 14, hematocrit 44, platelets 200. Chemistries unremarkable. Troponin less than 0.015. ] Emergency Department Course and Treatment: [Fluids continued from endoscopy. Patient was given Zofran for nausea.] Treatment Plan: Admit for further workup and treatment of his A. fib [] Disposition: [Admit] Impression: [Atrial fibrillation-new onset] This note was generated with [employer] dictation software. It may contain incorrect words, spelling, and punctuation that were not noted in review of the chart prior to signing ED Disposition - Plan for ED Patient: Chief Complaint: Palpitations Referrals: Pavan Rossi III, MD [Primary Care Provider] - What to do if you have Problems For any increased pain, shortness of breath, bleeding, nausea or vomiting, chest pain, or any unexpected problems, contact your Primary Care Provider. Call [facility] ([phone]) or report to the closest Emergency Room. Call 911 if necessary. 03/14/18 0919 <Electronically signed by Abhijit Bateman DO> Date Abhijit Bateman DO Cosigner Signature (If Indicated): Date CC: Pavan Rossi III, MD CHEST 1 VIEW Observed: 03/14/2018 Status: F Source: [place] (PORTABLE) 8:22 AM [facility] REPOSITORY [facility] Imaging Services [facility] [place] [address] Chest 1 View (Portable) MR#: [id number] Acct: [id number] Name: RUSS CARSON Rep #: [id number] : 1935 M 82 From: Gela Sheppard MD PCP: Pavan Rossi III, MD Status: REG ER Study: Chest 1 View (Portable) Date of Exam: 03/14/18 Exam# [id number] Ordering Dr: Abhijit Bateman DO STUDY: X-RAY CHEST REASON FOR EXAM: Male, 82 years old. PT STATES HAD A Tquot;COLON SEIZURETquot;. NO CHEST COMPLAINTS. HAVING SURGERY X 4 DAYS TECHNIQUE: Single AP portable view of the chest. COMPARISON: December 30, 2015 FINDINGS: Cardiac monitoring leads are present. The lungs are clear and expanded. Scattered calcified granuloma. There is no demonstrated pleural abnormality. There is borderline cardiomegaly. Normal mediastinum and dave. Normal visualized pulmonary arteries. There is atherosclerotic calcification of the aortic arch with tortuosity. Normal visualized thoracic spine. There is degenerative osteoarthritis of the bilateral shoulders. There is no demonstrated abnormality of the visualized soft tissue structures of the upper abdomen. RAD/Chest 1 View (Portable) IMPRESSION: Chronic changes. No acute intrathoracic process. Electronically Signed: Gela Sheppard MD at 8:59 EST , Service support , CC: Pavan Rossi III, MD; Abhijit Bateman DO International Sourcing Manager: Signed CBC W/DIFF, AUTOMATED Collected: 03/14/2018 Status: F Source: [place] 8:12 AM [facility] REPOSITORY TYPE CODE TESTS RESULT OUT OF RANGE REFERENCE UNITS LAB L100.1000 4.4-11.0 K/mm3 Normal WBC 6.5 LAB L100.1200 4.6-6.2 M/mm3 Normal RBC 4.66 LAB L100.1300 13.0-16.5 g/dl Normal HGB 14.4 LAB L100.1400 40-54 % Normal HCT 43.8 LAB L100.1500 80-94 fL Normal MCV 94.0 LAB L100.1600 27.0-32.0 pg Normal MCH 30.9 LAB L100.1700 32-36 g/gl Normal MCHC 32.9 LAB L100.1810 11.6-14.6 % Normal RDW CV 13.8 LAB L100.1820 35.1-43.9 fl High RDW SD 47.3 LAB L100.1900 150-450 K/mm3 Normal PLT 200 LAB L100.2000 6.2-12.0 fl Normal MPV 11.0 LAB L100.2100 47-70 % High NEUT% 80.1 LAB L100.2200 19-41 % Low LY% 11.5 LAB L100.2300 0-10 % Normal MONO% 6.9 LAB L100.2400 0-5 % Normal EO% 0.9 LAB L100.2500 0-1 % Normal BASO% 0.3 LAB L100.2550 0.0-0.9 % Normal IM GRAN % 0.300 Result Comment: IG% - Immature Granulocytes (promyelocytes, myelocytes and metamyelocytes) > 1% indicates that a LEFT SHIFT is Present. LAB L100.2620 2.0-7.7 X10 3/uL Normal Absolute Neut 5.2 LAB L100.2720 0.83-4.51 X10 3/ul Low Absolute Lymph 0.75 Performed By: #### L100.0100 #### [facility] [address] [place], [place] [address]all [facility] [place], [address] BASIC METABOLIC Collected: 03/14/2018 Status: F Source: [place] PROFILE (BMP) 8:12 AM [facility] REPOSITORY TYPE CODE TESTS RESULT OUT OF RANGE REFERENCE UNITS LAB L501.0100 74-106 mg/dL High GLU 143 Result Comment: Fasting Glucose result greater than or equal to 126 mg/dL suggests DIABETES MELLITUS per A.D.A. criteria. Please note revised GLUCOSE reference range effective 2017. LAB L501.1000 7-18 mg/dL Normal BUN 14 LAB L501.1100 0.70-1.30 mg/dL Normal CREAT,SERUM 0.91 Result Comment: The validity of the calculated GFR AND GFRAA in patients over 70 years has not been determined. Clinical correlation is essential. LAB L501.1110 >60 mL/min Normal EST GFR 85 Result Comment: Non- GFR Calc LAB L501.1115 >60 mL/min Normal EST GFR - AA 102 Result Comment: GFR Calc LAB L501.1255 ml/min Normal Estimated CRCL 58.80 LAB L501.1300 10-20 RATIO Normal BUN/CRE 15.4 LAB L501.2200 8.5-10 mg/dL Low .1 CA 8.4 LAB L501.5300 136-14 mmol/L Normal 5 NA 141 LAB L501.5600 3.5-5. mmol/L Normal 1 K 4.4 Result Comment: Moderate Hemolysis, Result may be falsely increased. LAB L501.5900 98-107 mmol/L Normal CL 107 LAB L501.6100 21.0-32.0 mmol/L Normal CO2 24.0 LAB L501.6200 5-15 Normal GAP 10 Performed By: #### L500.2500, L501.4010 #### [facility] [address] [place], [place], [address] TROPONIN-I Collected: 03/14/2018 Status: F Source: [place] 8:12 AM [facility] REPOSITORY TYPE CODE TESTS RESULT OUT OF RANGE REFERENCE UNITS LAB L501.4010 <0.045 ng/mL Normal < 0.015 TROPONIN-I Result Comment: TROPONIN-I EXPECTED VALUES <0.045 Negative 0.045 - 0.590 Consistent with Cardiac Damage > OR = 0.600 Critical Value Not every elevated troponin is indicative of GA. These values should be used with clinical judgement in examining the patient's clinical picture for diagnosis. To establish a diagnosis of GA versus myocardial injury, there must be a demonstrated rise and/or fall in the troponin values, in addition to ischemic symptoms, EKG changes, new regional wall motion abnormality, and/or angiographical evidence. PLEASE NOTE: REFERENCE RANGES EDITED 17 Performed By: #### L500.2500, L501.4010 #### [facility] [address] [place], [place], [address] D-DIMER QUANTITATIVE Collected: 03/14/2018 Status: F Source: [place] (DVT/PE) 8:12 AM [facility] REPOSITORY TYPE CODE TESTS RESULT OUT OF RANGE REFERENCE UNITS LAB L300.8000 0.27-0.49 FEU/ug/m Low D-DIMER < 0.27 QUANT Result Comment: NORMAL D-Dimer level (<0.50) indicates no DVT or PE. Performed By: #### L300.8000 #### [facility] [address] [place], [address] LIVER PROFILE Collected: 03/14/2018 Status: F Source: [place] 8:12 AM [facility] REPOSITORY TYPE CODE TESTS RESULT OUT OF RANGE REFERENCE UNITS LAB L501.1500 6.4-8.2 g/dL Normal T PROT 6.9 LAB L501.1800 3.2-5.0 g/dL Normal ALB 3.4 LAB L501.1950 2.2-4.2 g/dL Normal GLOB 3.5 LAB L501.4100 15-37 U/L Normal AST 30 Result Comment: Moderate Hemolysis, Result may be falsely increased. LAB L501.4305 45-117 U/L Normal ALK P 52 LAB L501.4405 16-61 U/L Low ALT 15 LAB L501.4600 0.20-1.00 mg/dL High T BILI 1.20 LAB L501.4700 0.00-0.30 mg/dL Normal D BILI 0.11 Performed By: #### L500.3400, L501.9520 #### [facility] [address] [place], [address] THYROID STIM HORMONE Collected: 03/14/2018 Status: F Source: [place] (TSH) 8:12 AM [facility] REPOSITORY TYPE CODE TESTS RESULT OUT OF RANGE REFERENCE UNITS LAB L501.9520 0.358-3.74 uIU/mL Normal TSH 3.44 Performed By: #### L500.3400, L501.9520 #### [facility] [address] [place], [address] MAGNESIUM Collected: 03/14/2018 Status: F Source: [place] 8:12 AM [facility] REPOSITORY TYPE CODE TESTS RESULT OUT OF RANGE REFERENCE UNITS LAB L501.5200 1.6-2.6 mg/dL Normal MG 1.9 Result Comment: Moderate Hemolysis, Result may be falsely increased. Performed By: #### L501.5200 #### [facility] [address], [address] BNP,B-TYPE NATRIURETIC Collected: 03/14/2018 Status: F Source: [place] PEPTIDE 8:12 AM [facility] REPOSITORY TYPE CODE TESTS RESULT OUT OF RANGE REFERENCE UNITS LAB L503.6620 0-100 pg/mL Normal B-TYPE 77.2 TASHA PEP Performed By: #### L503.6620 #### [facility] [address] [place], [address] ABDOMEN LIMITED Observed: 03/13/2018 Status: F Source: [place] 8:47 AM [facility] REPOSITORY [facility] Imaging Services [address] [place] [address] Abdomen Limited MR#: [id number] Acct: [id number] Name: RUSS CARSON Rep #: [id number] : 1935 M 82 From: Chilo Marrufo MD PCP: Pavan Rossi III, MD Status: REG CLI Study: Abdomen Limited Date of Exam: 03/13/18 Exam# [id number] Ordering Dr: Ander Rossi MD STUDY: ABDOMINAL ULTRASOUND - RIGHT UPPER QUADRANT REASON FOR VISIT: Male, 82 years old. Follow-up of gallstones, kidney mass TECHNIQUE: Ultrasound evaluation of the right upper quadrant was performed with real-time and static lopez-scale imaging. TECHNICAL QUALITY: Limited. Examination limited by bowel gas. COMPARISON: None. FINDINGS: Liver: The liver measures 15.7 cm. There is increased echogenicity consistent with fatty infiltration. The bile ducts are within normal limits. There is hepatic color flow. The direction of portal flow is hepatopetal. There is a 1.8 x 1.9 x 1.4 cm hepatic cyst. Gallbladder: Normal distended gallbladder. The gallbladder wall measures 2.8 mm. There is a negative sonographic Downs's sign. There is no pericholecystic fluid. There is a solitary echogenic gallstone within the gallbladder. Common Bile Duct (C.B.D.): The common bile duct measures 4.9 mm. Pancreas: There is diffuse atrophy of the pancreas. There is increased echogenicity of the pancreas. There is no demonstrated pancreatic mass or cyst. Right Kidney: Normal size of the right kidney. The right kidney measures 10.0 x 5.2 x 5.2 cm. Normal renal cortex. The right cortex measures 1.3 cm. There are 2 right renal cysts measuring 1.1 x 1.3 x 1.6 cm and 1.4 x 1.4 x 1.3 cm. There is no right hydronephrosis. US/Abdomen Limited IMPRESSION: 1. Hepatic cyst measuring 1.8 x 1.9 x 1.4 cm. 2. Cholelithiasis. There is no gallbladder wall thickening or pericholecystic fluid. 3. The pancreas is atrophic and demonstrates diffusely increased echogenicity. 4. 2 right renal cysts as described above. Electronically Signed: Chilo Marrufo MD at 17:03 EST , Service support , CC: Pavan Rossi III, MD; Ander Rossi MD International Sourcing Manager: Signed SURGERY VISIT REPORT Observed: 03/12/2018 Status: F Source: [place] 4:11 PM [facility] REPOSITORY [facility] [address] [place] [address]. [address] [place] [address] OFFICE VISIT Date of Service: 03/12/18 MR#: [id number] Acct: [id number] Name: RUSS CARSON Rep #: [id number] : 1935 Provider: Ander Rossi MD Age/Sex: 82/M Location: [facility] Status: Signed with Addenda ADDENDUM by Ander Rossi MD on 03/12/18 at 1611 Addendum entered and electronically signed by Ander Rossi MD 03/12/18 16:11: cc:Dr Bateman Intake Chief Complaint: broken right arm Allergies Penicillins Allergy (Verified 03/12/18 14:31) Unknown- been 30yrs ago Sulfa (Sulfonamide Antibiotics) Allergy (Verified 03/12/18 14:31) Unknown-been 30yrs ago Medications tamsulosin 0.4 mg capsule 0.4 mg PO DAILY #30 cap 03/12/18 [Rx Confirmed 03/12/18] Assessment AND Plan Problems 1. Left inguinal hernia K40.90 2. Gallstones K80.20 3. Prostate enlargement N40.0 4. Kidney cysts N28.1 5. Screening for intestinal cancer Z12.10 Plan - Ander Rossi MD Pleasant 82-year-old gentleman. He is accompanied by his daughter and son-in-law. The patient had an emergency room visit performed March 06, 2017 because of progressive left groin pain mass bulge. He has been detected as having asymptomatic gallstones. He has a right kidney cystic lesion of indeterminate nature. He has sigmoid colon involved within a left inguinal hernia He has never had a screening colonoscopy. He has prostate enlargement and nocturia 3 times nightly He has not seen his primary care physician and he states 10- 20 years. I propose for him a right renal and gallbladder ultrasound to evaluate the indeterminate finding on CT I recommend Flomax 0.4 mg nightly to be initiated now to assist with his postoperative course. I recommend a colonoscopy as his sigmoid colon has been sliding in and out of the left inguinal hernia and he has never had a previous endoscopy. He does do have diverticulosis on CT. He is at increased risk for mucosal abnormality at the site of hernia involvement. As I suspect that this is a left inguinal hernia with a sliding colonic involvement I propose for him a laparoscopic left inguinal herniorrhaphy with mesh. He is aware of the technique, benefit, risks, alternatives. He has had an opportunity to ask and have questions answered. At this point he is interested in proceeding with investigations and definitive treatment. I very much appreciate the kind opportunity of assisting with his surgical care. CC: Dr. Rader and Dr. Pavan Rossi, III Ander Rossi M.D., F.A.C.S. Orders Orders: Medications New: 03/12/18 1611 <Electronically signed by Ander Rossi MD> Date Ander Rossi MD cc: Pavan Rossi III, MD * Signed Intake Vital Signs03/12/18 Body Mass Index (BMI) 24.2 Intake Visit Reasons: LT INQUINAL HERNIA - ER FU Chief Complaint: broken right arm Concession Manager Required: No Is patient in pain?: No Allergies Penicillins Allergy (Verified 03/12/18 14:31) Unknown- been 30yrs ago Sulfa (Sulfonamide Antibiotics) Allergy (Verified 03/12/18 14:31) Unknown-been 30yrs ago Medications tamsulosin 0.4 mg capsule 0.4 mg PO DAILY #30 cap 03/12/18 [Rx Confirmed 03/12/18] PFSH Medical History Screening for intestinal cancer (Acute) Kidney cysts (Acute) Prostate enlargement (Acute) Gallstones (Acute) Left inguinal hernia (Acute) Displaced fracture of shaft of right ulna (Acute) Displaced segmental fracture of shaft of radius, right arm, initial encounter for closed fracture (Acute) Surgical History history ORIF right arm (Acute) Family History Sister Diabetes Social History Smoking Status: Former smoker how long ago did patient quit smoking: January 2015 alcohol intake: current alcohol intake frequency: a few times a month substance use type: does not use HPI HPI HPI: RUSS CARSON, is a 82 M who presents to the office today for surgical consultation regarding a left inguinal hernia with sigmoid colon involvement. The patient is referred by emergency room physician Dr. Abhijit Bateman. The patient's primary care physician is Dr. Pavan Rossi III. A written copy of my surgical consult and recommendations will be returned to both. The patient has been having increased problems with pain swelling left groin and thought he might have a hernia. He presented to the [facility] emergency room on March 06, 2018 and attempt to facilitate management. He does not seek medical attention frequently and states that it has been multiple years since he is gone into see his primary care physician Dr. Pavan Rossi III. On March 06, [address] scan was obtained at the [facility]. This demonstrates a small hiatal hernia. Probable cysts or hemangioma of the liver. Gallstones. Enlarged prostate. A 12 mm focus within the right kidney unclear whether it is a proteinaceous cyst. Sigmoid diverticulosis. Moderate sized left inguinal hernia with sigmoid colon involvement. His white blood cell count was 7.4 with hemoglobin 15.8 hematocrit 47.3 platelet count 234,000 with a normal differential. BUN is 9 creatinine 0.96. The patient has never had a colonoscopy. Currently he denies bright red blood per rectum or melena. He does have some difficulties with his bowels. He also complains of nocturia at least 3 or 4 times nightly. ROS General General: No weight change, appetite, fatigue, colon cancer, breast cancer or weakness HEENT HEENT: No difficulty swallowing, eye injury, eye surgery, swollen glands or hoarseness Endo Endocrine: No thyroid disease, diabetes mellitus, thyroid cancer, Hair loss, heat intolerance or cold intolerance Skin Skin: No rash or changing moles Breast Breast: No left breast lump, right breast lump, nipple discharge, breast pain, abnormal mammogram, abnormal US or breast enlargement Musc Musculoskeletal: Yes arthritis; no back problems, rheumatoid arthritis, gout or joint pain Cardio Cardiovascular: Yes heart attack; no murmur, pacemaker, heart disease, atrial fibrillation, high blood pressure, heart stent, palpitations, shortness of breat with exertion or chest pain Psych Psychiatric: No depression, anxiety or hearing voices Resp Respiratory: No shortness of breath, No sleep apnea, No cough, No COPD, No asthma, No emphysema, No wheezing Gastro Gastrointestinal: No abdominal pain, No nausea or vomiting, No diarrhea, No constipation, No blood in stool, No acid reflux, No hemorrhoids, No ulcers, No gallbladder problem, No black,tarry stools Elias Hematologic: No blood thinners, No blood disorders, No bleeding, No anemia, No blood clots Neuro Neurologic: No system reviewed and no additional complaints, except as docu, No as per HPI, No abnormal walking, No abnormal hearing, No abnormal movements, No abnormal speech, No behavioral changes, No burning sensations, No confusion, No seizure-like activity, No unsteadiness, No dizziness, No localized weakness, No frequent falls, No headache(s), No lack of coordination, No loss of vision, No memory loss, No numbness, No other visual disturbances, No radiating pain, No restless legs, No sensory deficit, No fainting, No tingling, No tremor(s), No weakness, No other Exam Const General: cooperative, healthy appearing, comfortable, no acute distress, anxious Nutritional Appearance: average body habitus Orientation: alert, awake, oriented x3 HENMT Head: normal to inspection Chest Chest palpation AND inspection: normal inspection of the chest Breast Palpation: No nipple discharge Resp Effort AND Inspection: normal respiratory effort Auscultation: clear to auscultation bilaterally Cardio Rate: regular rate Rhythm: regular rhythm Heart Sounds: no murmurs GI Palpation: soft Auscultation: normal bowel sounds Other: Testicles are descended. The patient is very hesitant to examination Testicles did not appear to have any masses. The right groin appears to be solid and intact. The left groin does have material consistent with sigmoid colon. With some effort I was able to get this majority reduced but potentially incompletely reduced. Skin General: no rashes or lesions noted Neuro Cranial Nerves: CN's II-XI intact bilaterally Extrem General: no calf tenderness bilaterally Psych Affect: normal affect Assessment AND Plan Problems 1. Left inguinal hernia K40.90 2. Gallstones K80.20 3. Prostate enlargement N40.0 4. Kidney cysts N28.1 5. Screening for intestinal cancer Z12.10 Plan Pleasant 82-year-old gentleman. He is accompanied by his daughter and son-in-law. The patient had an emergency room visit performed March 06, 2017 because of progressive left groin pain mass bulge. He has been detected as having asymptomatic gallstones. He has a right kidney cystic lesion of indeterminate nature. He has sigmoid colon involved within a left inguinal hernia He has never had a screening colonoscopy. He has prostate enlargement and nocturia 3 times nightly He has not seen his primary care physician and he states 10- 20 years. I propose for him a right renal and gallbladder ultrasound to evaluate the indeterminate finding on CT I recommend Flomax 0.4 mg nightly to be initiated now to assist with his postoperative course. I recommend a colonoscopy as his sigmoid colon has been sliding in and out of the left inguinal hernia and he has never had a previous endoscopy. He does do have diverticulosis on CT. He is at increased risk for mucosal abnormality at the site of hernia involvement. As I suspect that this is a left inguinal hernia with a sliding colonic involvement I propose for him a laparoscopic left inguinal herniorrhaphy with mesh. He is aware of the technique, benefit, risks, alternatives. He has had an opportunity to ask and have questions answered. At this point he is interested in proceeding with investigations and definitive treatment. I very much appreciate the kind opportunity of assisting with his surgical care. CC: Dr. Rader and BLADE Diggs M.D., F.A.C.S. Orders Orders: Medications New: Coding Level of Care Code Comprehensive,moderate Diagnoses Left inguinal hernia K40.90 Gallstones K80.20 Prostate enlargement N40.0 Kidney cysts N28.1 Screening for intestinal cancer Z12.10 03/12/18 1610 <Electronically signed by Ander Rossi MD> Date Ander Rossi MD Cosigner Signature: Date (if applicable) CC: Pavan Rossi III, MD DISCHARGE INSTRUCTION Observed: 03/06/2018 Status: F Source: [place] 9:54 PM [facility] REPOSITORY [facility] Medical Records Department [address] [place] [address] Discharge Instruction 03/06/18 2153 MR#: [id number] Acct: [id number] Name: RUSS CARSON Rep #: [id number] : 1935 82 From: Abhijit Bateman DO PCP: Pavan Rossi III, MD Status: REG ER ED Disposition - Plan for ED Patient: Chief Complaint: Abd Pain Instructions: ED Hernia Inguinal Prescriptions: Hydrocodone Bitart/Apap 5-325 [Rogerson 5MG-325MG] 1 tab PO Q4H PRN PRN 2 Days #14 tab PRN Reason: Pain Referrals: Pavan Rossi III, MD [Primary Care Provider] - Ander Rossi MD [STAFF PHYSICIAN] - 3-5 Days What to do if you have Problems For any increased pain, shortness of breath, bleeding, nausea or vomiting, chest pain, or any unexpected problems, contact your Primary Care Provider. Call [facility] ([phone]) or report to the closest Emergency Room. Call 911 if necessary. 03/06/182153 <Electronically signed by Abhijit Bateman DO> Date Abhijit Bateman DO Cosigner Signature (If Indicated): Date CC: Pavan Rossi III, MD EMERGENCY DEPARTMENT Observed: 03/06/2018 Status: F Source: [place] SUMMARY 9:53 PM [facility] REPOSITORY [facility] Medical Records Department [address] [place] [address] Emergency Department Summary 03/06/182149 MR#: [id number] Acct: [id number] Name: RUSS CARSON Rep #: [id number] : 1935 82 From: Abhijit Bateman DO PCP: Pavan Rossi III, MD Status: REG ER - ER Visit Summary Date of Service: 03/06/18 Chief Complaint: [Abdominal pain] History of Present Illness: The patient is a 82 M [presents to the emergency department complaint of abdominal pain for about a month. Patient thinks he might have a hernia. Patient states that at times it feels like his left testicle can get sucked up into his abdomen and he asked the help bring it back down. Patient denies any fever or vomiting. He denies any blood in the stool or black tarry stool. Last bowel movement was earlier today. He denies any difficulty urinating. Patient denies any trauma to his abdomen.] Physical Examination: [HEENT-PERRLA, EOMI. Cranial nerves II through XII grossly intact. TMs clear. Mucous membranes moist. No adenopathy. Cardiovascular-regular rate and rhythm without murmur or ectopy Lungs-clear to auscultation, chest wall stable without crepitus or subcu emphysema Abdomen-normoactive bowel sounds, soft. Patient has tenderness to palpation over the left inguinal area with an area of fullness noted. Testicles are nontender and descended. Patient is not circumcised. There is no erythema or discoloration over the suspected hernia. Extremities-intact 4, normal range of motion, normal pulses, atraumatic] Test Results: [CBC with differential obtained was normal. Chemistries were normal. Lactate was 1.1. Urinalysis was normal. CT scan of the abdomen pelvis with p.o. contrast obtained showed left inguinal hernia containing a segment of sigmoid colon without evidence of an associated obstruction. He had colonic diverticulosis. He had atherosclerosis. He had cholelithiasis. He had indeterminate high attenuation focus arising from the right kidney which may reflect underlying proteinaceous cyst consider ultrasound for further evaluation. Patient also had a hiatal hernia. Patient also noted to have enlarged prostate gland.] Emergency Department Course and Treatment: [Patient case will be discussed with surgeon on-call for follow-up.] Treatment Plan: [Patient will be given a prescription for Rogerson for pain. Patient advised use a stool softener daily.] Disposition: [Discharged home in stable condition] Impression: [Left inguinal hernia] This note was generated with [employer] dictation software. It may contain incorrect words, spelling, and punctuation that were not noted in review of the chart prior to signing ED Disposition - Plan for ED Patient: Chief Complaint: Abd Pain Referrals: Pavan Rossi III, MD [Primary Care Provider] - What to do if you have Problems For any increased pain, shortness of breath, bleeding, nausea or vomiting, chest pain, or any unexpected problems, contact your Primary Care Provider. Call [facility] ([phone]) or report to the closest Emergency Room. Call 911 if necessary. 03/06/18 2153 <Electronically signed by Abhijit Bateman DO> Date Abhijit Bateman DO Cosigner Signature (If Indicated): Date CC: Pavan Rossi III, MD URINALYSIS, COMPLETE Collected: 03/06/2018 Status: F Source: [place] 7:30 PM [facility] REPOSITORY Order Comment: How was Urine Obtained? CLEAN CATCH TYPE CODE TESTS RESULT OUT OF RANGE REFERENCE UNITS LAB L400.3000 Yellow COLOR Normal Yellow LAB L400.3050 Clear Normal CLARITY Clear LAB L400.3200 Normal mg/dl Normal GLUCOSE, UR Normal LAB L400.3300 Negative mg/dL Normal BILIRUBIN URINE Negative LAB L400.3400 Negative mg/dl Normal KETONE UR Negative LAB L400.3465 1.002-1.030 Normal SP.GR. DIPSTX 1.015 LAB L400.3550 5.0 - 8.0 pH UR Normal 6.0 LAB L400.3600 Negative mg/dl PROT Normal DIPSTX Negative LAB L400.3700 Normal mg/dl Normal UROBILI Normal LAB L400.3750 Negative Normal NITRITE UR Negative LAB L400.3780 Negative /ul High 10 OCCULT BLOOD-UR LAB L400.3800 Negative /ul High LEUK 25 ESTERASE LAB L400.4050 0-5 /hpf WBC 0 Normal SEEN LAB L400.4100 0-5 /hpf 0 Normal RBC-UA SEEN LAB L400.4150 0-5 /hpf SQUAM 0 Normal EPI SEEN LAB L400.4300 None Seen /hpf 0 Normal BACTERIA SEEN LAB L400.4350 <or=2+ /hpf 0 Normal MUCUS, URINE SEEN Performed By: #### L400.0001 #### [facility] [address] [place], [address] CBC W/DIFF, AUTOMATED Collected: 03/06/2018 Status: F Source: [place] 7:07 PM [facility] REPOSITORY TYPE CODE TESTS RESULT OUT OF RANGE REFERENCE UNITS LAB L100.1000 4.4-11.0 K/mm3 Normal WBC 7.4 LAB L100.1200 4.6-6.2 M/mm3 Normal RBC 5.06 LAB L100.1300 13.0-16.5 g/dl Normal HGB 15.8 LAB L100.1400 40-54 % Normal HCT 47.3 LAB L100.1500 80-94 fL Normal MCV 93.5 LAB L100.1600 27.0-32.0 pg Normal MCH 31.2 LAB L100.1700 32-36 g/gl Normal MCHC 33.4 LAB L100.1810 11.6-14.6 % Normal RDW CV 13.8 LAB L100.1820 35.1-43.9 fl High RDW SD 46.6 LAB L100.1900 150-450 K/mm3 Normal PLT 234 LAB L100.2000 6.2-12.0 fl Normal MPV 10.7 LAB L100.2100 47-70 % Normal NEUT% 64.9 LAB L100.2200 19-41 % Normal LY% 23.7 LAB L100.2300 0-10 % Normal MONO% 8.5 LAB L100.2400 0-5 % Normal EO% 2.2 LAB L100.2500 0-1 % Normal BASO% 0.4 LAB L100.2550 0.0-0.9 % Normal IM GRAN % 0.300 Result Comment: IG% - Immature Granulocytes (promyelocytes, myelocytes and metamyelocytes) > 1% indicates that a LEFT SHIFT is Present. LAB L100.2620 2.0-7.7 X10 3/uL Normal Absolute Neut 4.8 LAB L100.2720 0.83-4.51 X10 3/ul Normal Absolute Lymph 1.75 Performed By: #### L100.0100 #### [facility] [address] [place], [address] BASIC METABOLIC Collected: 03/06/2018 Status: F Source: [place] PROFILE ([facility]) 7:07 PM [facility] REPOSITORY TYPE CODE TESTS RESULT OUT OF RANGE REFERENCE UNITS LAB L501.0100 74-106 mg/dL Normal GLU 98 Result Comment: Please note revised GLUCOSE reference range effective 2017. LAB L501.1000 7-18 mg/dL Normal BUN 9 LAB L501.1100 0.70-1.30 mg/dL Normal CREAT,SERUM 0.96 Result Comment: The validity of the calculated GFR AND GFRAA in patients over 70 years has not been determined. Clinical correlation is essential. LAB L501.1110 >60 mL/min Normal EST GFR 79 Result Comment: Non- GFR Calc LAB L501.1115 >60 mL/min Normal EST GFR - AA 96 Result Comment: GFR Calc LAB L501.1255 ml/min Normal Estimated CRCL 54.51 LAB L501.1300 10-20 RATIO Low BUN/CRE 9.3 LAB L501.2200 8.5-10 mg/dL Normal .1 CA 8.9 LAB L501.5300 136-14 mmol/L Normal 5 NA 141 LAB L501.5600 3.5-5. mmol/L Normal 1 K 4.0 LAB L501.5900 98-107 mmol/L High CL 108 LAB L501.6100 21.0-3 mmol/L Normal 2.0 CO2 24.0 LAB L501.6200 5-15 Normal GAP 9 Performed By: #### L500.2500 #### [facility] [facility] [address] [facility], [address] LACTIC ACID Collected: 03/06/2018 Status: F Source: [place] 7:07 PM [facility] REPOSITORY Order Comment: Yes/No query for Sepsis Lactate Rule Y TYPE CODE TESTS RESULT OUT OF RANGE REFERENCE UNITS LAB L503.6005 0.4-2.0 mmol/L Normal LACTIC ACID 1.1 Performed By: #### L503.6005 #### [facility] [address] [place], [address] ABDOMEN/PEL W ORAL CONT Observed: 03/06/2018 Status: F Source: [place] ONLY 6:52 PM [facility] REPOSITORY [facility] Imaging Services [address] [place] [address] Abdomen/Pel W ORAL Cont Only MR#: [id number] Acct: [id number] Name: RUSS CARSON Rep #: [id number] : 1935 M 82 From: Kady Higgins MD PCP: Pavan Rossi III, MD Status: REG ER Study: Abdomen/Pel W ORAL Cont Only Date of Exam: 03/06/18 Exam# [id number] Ordering Dr: Abhijit Bateman DO STUDY: CT ABDOMEN AND PELVIS WITHOUT CONTRAST REASON FOR EXAM: Male, 82 years old. Left lower abdominal pain. Possible hernia. RADIATION DOSAGE (If Supplied By Facility): CTDIvol = ( 7.5 ) mGy, DLP = ( 367.21 ) mGycm TECHNIQUE: Transaxial images were obtained from the dome of the diaphragm to the symphysis pubis with oral contrast, and without intravenous contrast. Sagittal and coronal images were reconstructed. Individualized dose optimization techniques were used for this CT. COMPARISON: None. FINDINGS: The visualized lung bases are unremarkable. The visualized portions of the heart are within normal limits. Please note the lack of intravenous contrast limits evaluation of solid visceral organs. There are scattered well-circumscribed low-attenuation foci within the liver the largest measuring up to 1.4 cm which may reflect underlying cysts or hemangiomas. There are gallstones within the gallbladder. Normal spleen. Normal pancreas. Normal bilateral adrenal glands. There is a round 12 mm high attenuation focus arising from the right kidney which may reflect a proteinaceous cysts. Normal left kidney. There is a small hiatal hernia. Normal small intestine. There are multiple colonic diverticula consistent with diverticulosis. There is a moderate-sized left inguinal hernia into which a segment of sigmoid colon herniates. There is no bowel obstruction. The appendix is visualized and appears normal. There is diffuse atherosclerotic calcification of the abdominal aorta, without a demonstrated aneurysm. Normal inferior vena cava. Normal retroperitoneum. Normal urinary bladder. There is enlargement of the prostate gland. There are diffuse degenerative changes of the visualized lumbar spine. There is a grade 1 anterior spondylolisthesis of L5 on S1. CT/Abdomen/Pel W ORAL Cont Only IMPRESSION: Left inguinal hernia containing a segment of sigmoid colon without evidence of an associated obstruction. Colonic diverticulosis. Atherosclerosis. Cholelithiasis. Indeterminate high attenuation focus arising from the right kidney which may reflect underlying proteinaceous cysts, consider ultrasound for further evaluation. Hiatal hernia. Enlarged prostate gland. Electronically Signed: Kady Higgins MD at 21:11 EST Tel , Service support , CC: Pavan Rossi III, MD; Abhijit Bateman DO International Sourcing Manager: Signed CNPTOUTREACH Observed: 03/05/2018 Status: COMPLETED Source: [place] 12:00 AM [facility] REPOSITORY Patient Outreach (FAMPST) RUSS CARSON ([id number]) 1935 M Date Time Provider Department 03/05/18 PAVAN ROSSI III FAMPST During your visit today, we recorded the following information about you: Allergies As of Date: 03/05/2018 Noted Allergy Reaction LIPITOR (ATORVASTATIN CALCIUM) 03/02/2005 Comments: myalgia PENICILLINS 03/01/2005 SULFA (SULFONAMIDE ANTIBIOTICS) 03/01/2005 Date Reviewed: 12/08/2011 Reviewed by: Desiree Mirza LPN - Fully Assessed Visit Diagnosis:Medication management [Z79.899] Order(s):LIPID PANEL BASIC [SQLIPB] Order #: [id number] FUTURE Prescriptions as of 03/05/2018 Sig: ACETAMINOPHEN 300 MG-CODEINE * Take 1 tablet by mouth every * Problem List As Of Date 03/05/2018 Noted Resolved HYPERLIPIDEMIA NEC/NOS [E78.5] OSTEOARTHROS NOS-UNSPEC [M19.90] INVALID FOR* Encounter Status:Closed by [facility], PRODUSER on 03/20/18 ALLERGIES ALLERGIES DATE TYPE / CODE NAME / CODE REACTION SEVERITY SOURCE 03/15/2018 Drug Penicillins/F Unknown- been Unknown [facility] All[facility]/4160 761183685(RXN 30yrs ago [facility] [address](SNOMED ORM) Repository CT) 03/15/2018 Drug Sulfa Unknown-been Unknown [facility] Allergy/4160 (Sulfonamide 30yrs ago [place] [address](SNOMED Antibiotics)/ Repository CT) [id number](RX NORM) ENCOUNTERS ENCOUNTERS ADMIT/DISCHARGE ACCOUNT ADMITTING ENCOUNTER LOCATION SOURCE NUMBER CLASS 03/18/2018/ [id number] Ambulatory [facility] [facility] 1 [facility] ing:SDCRoom: Repository [id number] 03/14/2018/ [id number] Behzad Acosta Ambulatory [facility] [place] 9 0 [facility] ing:PCURoom: Repository [id number]: 1 03/14/2018 [id number] Behzad Acosta Ambulatory BMSBuilding:B [place] 3 [facility] Repository 03/14/2018 [id number] Behzad Acosta Ambulatory BMSBuilding:B [place] 0 MS.[facility] Repository 03/14/2018 [id number] Behzad Acosta Ambulatory BMSBuilding:B [place] 7 MS.[facility] Repository 03/14/2018/ [id number] Ambulatory [place] 9 8 [facility] ing:EN Repository 03/13/2018 [id number] Ambulatory [place] 8 [facility] ing:US Repository 03/12/2018/ [id number] Ambulatory BMSBuilding:B [place] 9 3 [place].On license of [facility] Repository 03/06/2018/ [id number] Emergency [place] [address] 9 [facility] ing:ED Repository PAYERS PAYERS ENCOUNTER GUARANTOR PAYER SUBSCRIBER SOURCE 03/18/2018 RUSS Hester Primary RUSS Zabala [id number] [facility] [id number] 12/27/17Policy Number: Repository [id number]: 330 [id number] [phone] () Date:4691-12-93LV[address] [address]WM: 03/18/2018 Secondary NOT GIVENUNK [place] Insurance:SELF PAY [facility] Number: Effective Repository Date:2018-03-12 03/14/2018 RUSS Hester Primary RUSS Zabala [id number] [facility] : [id number], [place]/27/[place]Policy Number: Repository [id number]: 330) [id number] [phone] (HP) Date:9344-62-00IO [address] [place] [address]DE: 03/14/2018 Secondary NOT GIVENUNK [place] Insurance:SELF PAY [facility] Number: Effective Repository Date:2018-03-14 03/14/2018 RUSS Hester Primary RUSS Zabala [id number] Insurance[facility] : [id number] 12/27/17Policy Number: Repository [id number]: (330 [id number] [phone] (HP) Date:0101-86-35YY [address] [place] [address]LD: 03/14/2018 Secondary NOT GIVENUNK [place] Insurance:SELF PAY [facility] Number: Effective Repository Date:2018-03-14 03/14/2018 RUSS W Primary RUSS Zabala [id number] [facility] : [id number], [place] 12/27/17Policy Number: Repository [id number]: (330) [id number] [phone] (HP) Date:7172-97-72JG [address] [address]WH: 03/14/2018 Secondary NOT GIVENUNK [place] Insurance:SELF PAY [facility] Number: Effective Repository Date:2018-03-14 03/14/2018 RUSS W Primary RUSS Zabala [id number] Insurance[facility] : [id number], [place] 12/27/17Policy Number: Repository [id number]: (330) [id number] [phone] (HP) Date:6890-60-97WP [address] [address]QD: 03/14/2018 Secondary NOT GIVENUNK [place] Insurance:SELF PAY [facility] Number: Effective Repository Date:2018-03-14 03/14/2018 RUSS W Primary RUSS Zabala [id number] Insurance:[facility]UMANMargarito [facility] : [id number], [place] 12/27/17Policy Number: Repository [id number]: 330 [id number] [phone] (HP) Date:1873-30-90FE [address] [address]BW: 03/14/2018 Secondary NOT GIVENUNK [place] Insurance:SELF PAY [facility] Number: Effective Repository Date:2018-03-12 03/13/2018 RUSS W Primary RUSS Zabala [id number] [facility] : [id number], [place] 12/27/17Policy Number: Repository [id number]: (330 [id number] [phone] (HP) Date:4855-61-54KF [address] [address]HA: 03/13/2018 Secondary NOT GIVENUNK [place] Insurance:SELF PAY [facility] Number: Effective Repository Date:2018-03-12 03/12/2018 RUSS Primary RUSS Zabala [id number] Insurance[facility] : [id number], [place] 12/27/17Policy Number: Repository [id number]: (330 [id number] [phone] () Date:5966-60-16ZV [address] [address]QL: 03/12/2018 Secondary NOT GIVENUNK [place] Insurance:SELF PAY [facility] Number: Effective Repository Date:2018-03-12 03/06/2018 RUSS W Primary RUSS Zabala [id number] Insurance[facility] : [id number], [place] 12/27/17Policy Number: Repository [id number]: (815) [id number] [phone] () Date:5223-12-19YW [address] [place] [address]NA: 03/06/2018 Secondary NOT GIVENUNK [place] Insurance:SELF PAY [facility] Number: Effective Repository Date:2018-03-06
== END ==
PROVIDERS: Family Provider Family Medicine; PCP Family Medicine; Referring Provider Surgery; Visit Provider Surgery
DX: K80.20 Calculus of gallbladder without cholecystitis without obstruction (principal); N28.89 Other specified disorders of kidney and ureter
CPT/HCPCS: 76705

== ENCOUNTER 2018-03-14 05:16 | Day surgery (SDC) | payer MEDICARE, SELFPAY ==
[2018-03-12 14:33] VITALS: BMI 24.2
[2018-03-14] VITALS (16 sets, daily range): BP systolic 95–161; BP diastolic 64–87; PULSE 81–105; RESP 16–18; TEMP 36–36.8; O2SAT 89–100; BMI 24.2
--- NOTE | 2018-03-14 06:45 | EKGRS_ITS ---
Test Reason : POST OP Blood Pressure : / mmHG Vent. 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
--- OUTSIDE RECORDS SUMMARY | 2018-05-18 18:21 | XMS RPT_ITS ---
:1935 Author Organization OHIP Support Name Relationship Address Phone MARY PELLETIER Unavailable [address] [place] [address] DR + [place] [address] EMANI PAYNE Unavailable [address] + [place] [address] R Unavailable Unavailable Unavailable MARY PELLETIER Unavailable [address] [place] [address] + [place] [address] EMANI PAYNE Unavailable [address] + [place] [address] R Unavailable Unavailable Unavailable MARY PELLETIER Unavailable [address] [place] [address] DR + [place] [address] EMANI PAYNE Unavailable [address] + [place] [address] R Unavailable Unavailable Unavailable MARY PELLETIER Unavailable [address] [place] [address] DR + [place] [address] EMANI PAYNE Unavailable [address] + [place] [address] R Unavailable Unavailable Unavailable MARY PELLETIER Unavailable [address] [place] [address] DR + [place] [address] EMANI PAYNE Unavailable [address] + [place] [address] R Unavailable Unavailable Unavailable MARY PELLETIER Unavailable [address] [place] [address] DR + [place] [address] EMANI PAYNE Unavailable [address] + [place] [address] R Unavailable Unavailable Unavailable YUAN PELLETIEREN Unavailable [address] + [place] [address] FÉLIXCORTEZHILLARYARIADNESATNAM SHELTONJolene Unavailable [address] + [place] [address] R Unavailable Unavailable Unavailable MARY PELLETIER Unavailable [address] + [place] [address] JORGEAJITHSATNAMJolene Unavailable [address] + [place] [address] R Unavailable Unavailable Unavailable MARY PELLETIER Unavailable [address] + [place] [address] FÉLIXEVITASATNAMJolene Unavailable [address] + [place] [address] R Unavailable Unavailable Unavailable Care Team Providers Name Role Phone Cebul III, Pavan Primary Care Unavailable Abhijit Bateman Attending Unavailable Cebul, Ander Attending Unavailable Cebul III, Pavan Referring Unavailable Cebul, Ander Attending Unavailable Cebul, Ander Referring Unavailable Cebul III, [place] Primary Care Unavailable Cebul, Ander Attending Unavailable Cebul, Ander Referring Unavailable Cebul III, [place] Primary Care Unavailable Cebul, Ander Attending Unavailable Cebul, Ander Referring Unavailable Cebul III, [place] Primary Care Unavailable Cebul III, [place] Primary Care Unavailable KittoBehzad muro Admitting Unavailable [place], Behzad Attending Unavailable Eli, Alsip Consulting Unavailable [place], eBhzad Admitting Unavailable [place], Behzad Attending Unavailable Cebul III, Pavan Primary Care Unavailable KittoeBehzad Consulting Unavailable KittoeBehzad Admitting Unavailable Eli, Alsip Attending Unavailable Cebul III, Pavan Primary Care Unavailable Eli, Jace Consulting Unavailable KittoeBehzad Consulting Unavailable KittoBehzad muro Admitting Unavailable Kittojina, Behzad Attending Unavailable Cebul III, Pavan Primary Care Unavailable Eli, Alsip Consulting Unavailable Behzad Acosta Consulting Unavailable PROBLEMS PROBLEMS DATE TYPE CONDITION / CODE ATTENDING STATUS SOURCE 03/12/2018 Unknown K80.20 - Calculus Ander Rossi Active [place] [facility]adder [facility] cholecystitis Repository without obstruction / K80.20(ICD-10) 03/12/2018 Unknown N28.89 - Other Ander Rossi Active [place] specified disorders [facility] ureter / Repository N28.89(ICD-10) 03/06/2018 Unknown R10.9 - Unspecified UngurAbhijit Active [place] abdominal pain / Community R10.9(ICD-10) Hospital Repository PROCEDURES PROCEDURES No Procedure Records FoundRESULTS RESULTS DISCHARGE INSTRUCTION Observed: 03/18/2018 Status: F Source: [place] 6:00 PM [facility] REPOSITORY [facility] Medical Records Department [address] [place] [address] Instructions for Home/Discharge Instructions 03/18/18 1042 MR#: [id number] Acct: [id number] Name: RUSS CARSON Rep #: [id number] : 1935 82 From: Ander Rossi MD PCP: Pavan Rossi III, MD Status: DEP [facility] Discharge Diet: Light diet - advance as [...] Follow Up With: Ander Rossi MD - [phone] When: Call to make an appointment to be seen in about 10 days. 03/18/18 1800 <Electronically signed by Ander Rossi MD> Date Ander Rossi MD CC: Pavan Rossi III, MD Signed OPERATIVE REPORT Observed: 03/18/2018 Status: F Source: [place] 6:00 PM [facility] REPOSITORY [facility] Medical Records Department [address] [place] [address] Operative Report 03/18/18 1143 MR#: [id number] Acct: [id number] Name: RUSS CARSON Rep #: [id number] : 1935 82 From: Ander Rossi MD PCP: Pavan Rossi III, MD Status: DEP [facility] Y Location: [facility] Problem List (1) Left inguinal hernia Status: Chronic Report of Operation Date of Procedure: 03/18/18 Pre-Operative Diagnosis: Sliding left inguinal hernia Post-Operative Diagnosis: Same Surgery/Procedure Performed:: Laparoscopic left inguinal herniorrhaphy. Bard 3 DMax mesh lot number [id number] PROCESS ATTENDANT [id number]. Reference #[id number]. Expiry date 10/23/2022. Secure strap lot number [id number]. Expiry date 11/16/2019 Description of Surgical Findings:: [...] the umbilicus approximately up to 2-0 Vicryl hvnnpp-xz-rwqgw suture. Skin edges approximated up to 4 [...] LEAD ELECTROCARDIOGRAM Observed: 03/18/2018 Status: F Source: [place] 9:51 AM [facility] REPOSITORY [facility] Cardiovascular Services [address] [place] [address] 12 Lead EKG 03/15/18 0515 MR#: [id number] Acct: [id number] Name: RUSS CARSON Rep #: [id number] : 1935 82 From: Jace Benitez MD Attending Dr: Behzad Acosta MD Status: DIS [place] Ordering Dr: Behzad Acosta MD Date: 03/15/18 Location: [facility] Sex: M C Admitted: 03/14/18 Test [...] IS UNCONFIRMED Confirmed by JACE BENITEZ MD ([id number]), business editor RAHEEM TRUJILLO ([id number]) on 03/18/2018 9:51:13 AM Referred By: DR ACOSTA Confirmed By:JACE BENITEZ MD 03/18/18 0951 Date Jace Benitez MD CC: Behzad Acosta MD; Pavan Rossi III, MD Signed 12 LEAD EKG W/ Observed: 03/18/2018 Status: F Source: [place] RHYTHM STRIP 9:24 AM [facility] REPOSITORY [facility] Cardiovascular Services [address] [place] [address] 12 Lead EKG with Rhythm Strip 03/14/18 0700 MR#: [id number] Acct: [id number] Name: RUSS CARSON Rep #: [id number] : 1935 82 From: Jace Benitez MD Attending Dr: Ander Rossi MD Status: DEP [facility] Ordering Dr: Ander Rossi MD Date: 03/14/18 [...] Abnormal ECG Confirmed by JACE BENITEZ MD ([id number]), business editor RAHEEM TRUJILLO ([id number]) on 03/18/2018 9:23:42 AM Referred By: Ander Rossi Confirmed By:JACE BENITEZ MD 03/18/18 0923 Date Jace Benitez MD CC: Pavan Rossi III, MD; Ander Rossi MD Signed DISCHARGE SUMMARY Observed: 03/15/2018 Status: F Source: [place] 11:14 AM [facility] REPOSITORY [facility] Medical Records Department [address] [place] [address] Discharge Summary 03/15/18 1049 MR#: [id number] Acct: [id number] Name: RUSS CARSON Rep #: [id number] : 1935 82 From: Behzad Acosta MD PCP: Pavan Rossi III, MD Status: ADM MILAD Y Location: [place] [address] Discharge Date and Diagnosis - Problem List [...] reviewed. Patient age places him at the [id number] 2 score of at least 2 and [...] 3. Generalized osteoarthritis 5. Remote history of MD in 1979 patient did not undergo any [...] applicable Code Visit OBSV E AND M: 43872 Observation care discharge 03/15/18 1114 <Electronically signed by Behzad Acosta MD> Date Behzad Acosta MD Cosigner Signature (if applicable): Date CC: Behzad Acosta MD; Pavan Rossi III, MD Signed DISCHARGE INSTRUCTION Observed: 03/15/2018 Status: F Source: [place] 10:49 AM [facility] REPOSITORY [facility] Medical Records Department [address] [place] [address] Instructions for Home/Discharge Instructions 03/15/18 1046 MR#: [id number] Acct: [id number] Name: RUSS CARSON Rep #: [id number] : 1935 82 From: Behzad Acosta MD [...] STRESS REPORT Observed: 03/15/2018 Status: F Source: [place] 10:02 AM [facility] REPOSITORY [facility] Cardiovascular Services [address] [place] [address] MR#: [id number] Acct: [id number] Name: RUSS CARSON Rep #: [id number] : 1935 82 From: Jace Benitez MD [...] MD Date Dictated: 03/15/18958 Date Transcribed: 03/15/18958 Taper Operator: CO Signed BASIC METABOLIC Collected: 03/15/2018 Status: F Source: [place] PROFILE ([facility]) 3:58 AM [facility] REPOSITORY TYPE CODE TESTS RESULT OUT OF [...] Performed By: #### L500.2500, L300.3900, L300.4310 #### [facility] [address] [place], [place], [address] PROTHROMBIN TIME W/INR Collected: 03/15/2018 Status: F Source: [place] 3:58 AM [facility] REPOSITORY TYPE CODE TESTS RESULT OUT OF RANGE REFERENCE UNITS LAB L300.4150 11.7-14.9 SECONDS Normal PROTIME 14.2 LAB L300.4200 Normal INR 1.1 Performed By: #### L500.2500, L300.3900, L300.4310 #### [facility] [address] [place], [place], [address] PARTIAL THROMBOPLAST Collected: 03/15/2018 Status: F Source: [place] TIME 3:58 AM [facility] REPOSITORY TYPE CODE TESTS RESULT OUT OF RANGE REFERENCE UNITS LAB L300.4310 24.1-36.2 Seconds Normal PTT 28.0 Performed By: #### L500.2500, L300.3900, L300.4310 #### [facility] [address] [facility] [place], [address] CBC W/DIFF, AUTOMATED Collected: 03/15/2018 Status: F Source: [place] 3:58 AM [facility] REPOSITORY TYPE CODE TESTS RESULT OUT OF [...] Lymph 1.13 Performed By: #### L100.0100 #### [facility] [address] [place], [address] CONSULTATION Observed: 03/14/2018 Status: F Source: [place] 5:38 PM [facility] REPOSITORY [facility] Medical Records Department [facility] [place] [address] [place] [address] Consultation 03/14/18 1719 MR#: [id number] Acct: [id number] Name: RUSS CARSON Rep #: [id number] : 1935 82 From: Jace Benitez MD PCP: Pavan Rossi III, MD Status: ADM MILAD Y Location: [place] [address] Reason for Consult Date of Consultation: 03/14/18 Reason for Consultation: Evaluation of irregular heartbeat History of Present Illness: The patient is a 82 year old M with a past medical history significant for MD diagnosed in 1979 with no intervention, previous [...] 80.1 H, Lymph % (Auto) 11.5 L, Stanley % (Auto) 6.9, Eos % (Auto) 0.9, [...] to call if any issues arise 03/14/18 5526 <Electronically signed by Jace Benitez MD> Date Jace Benitez MD Cosigner Signature (if applicable): Date CC: Jace Benitez MD; Pavan Rossi III, MD Signed TROPONIN-I Collected: 03/14/2018 Status: F Source: [place] 2:35 PM [facility] REPOSITORY Order Comment: 'TROP' Serial specimen #1, #2 or #3: 3 TYPE CODE TESTS RESULT OUT OF RANGE REFERENCE UNITS LAB L501.4010 <0.045 ng/mL Normal < 0.015 TROPONIN-I Result Comment: TROPONIN-I EXPECTED VALUES <0.045 Negative 0.045 - 0.590 Consistent with Cardiac Damage > OR = 0.600 Critical Value Not every elevated troponin is indicative of MD. These values should be used with clinical judgement in examining the patient's clinical picture for diagnosis. To establish a diagnosis of MD versus myocardial injury, there must be a demonstrated rise and/or fall in the troponin values, in addition to ischemic symptoms, EKG changes, new regional wall motion abnormality, and/or angiographical evidence. PLEASE NOTE: REFERENCE RANGES EDITED 17 Performed By: #### L501.4010 #### [facility] [address] [facility] [place], [address] ECHOCARDIOGRAM COMPLETE Observed: 03/14/2018 Status: F Source: [place] 1:50 PM [facility] REPOSITORY [facility] Cardiovascular Services [address] [place] [address] Echo Complete 03/14/18 0942 MR#: [id number] Acct: [id number] Name: RUSS CARSON Rep #: [id number] : 1935 82 From: Aristeo Dyson MD Attending Dr: Behzad Acosta MD Status: ADM MILAD Ordering Dr: Behzad Acosta MD Date: 03/14/18 Location: [facility] Sex: M C Admitted: 03/14/18 Reason [...] PAVAN ROSSI III Performed By: Fadia Mercado [facility] 03/14/181348 Date Aristeo Dyson MD CC: Behzad Acosta MD; Pavan Rossi III, MD Date Dictated: 03/14/1842 Date Transcribed: 03/14/181348 Taper Operator: Signed HISTORY AND PHYSICAL Observed: 03/14/2018 Status: F Source: [place] EXAM 12:57 PM [facility] REPOSITORY [facility] Medical Records Department [address] [place] [address] History and Physical 03/14/18924 MR#: [id number] Acct: [id number] Name: RUSS CARSON Rep #: [id number] : 1935 82 From: Behzad Acosta MD PCP: Pavan Rossi III, MD Status: ADM MILAD Y Location: [place] [address] Problem List (1) Afib Status: Acute (2) [...] old M past medical history significant for MD diagnosed in 1979 with no intervention, previous [...] cardiology. Patient age places him at the [id number] 2 score of at least 2 and will therefore require systemic anticoagulation to prevent strokes however in view of his scheduled left inguinal herniorrhaphy will hold off. 2. Left inguinal herniorrhaphy scheduled to undergo repair on 03/18/2018 3. Generalized osteoarthritis 5. Remote history of MD in 1979 patient did not undergo any intervention 4. DVT prophylaxis SC Lovenox Code Visit OBSV E AND M: 05434 Initial observation care L3 03/14/18 1257 <Electronically signed by Behzad Acosta MD> Date Behzad Acosta MD Cosigner Signature: Date (if applicable) CC: Behzad Acosta MD; Pavan Rossi III, MD Signed TROPONIN-I Collected: 03/14/2018 Status: F Source: [place] 11:20 AM [facility] REPOSITORY Order Comment: 'TROP' Serial specimen #1, #2 or #3: 2 TYPE CODE TESTS RESULT OUT OF RANGE REFERENCE UNITS LAB L501.4010 <0.045 ng/mL Normal < 0.015 TROPONIN-I Result Comment: TROPONIN-I EXPECTED VALUES <0.045 Negative 0.045 - 0.590 Consistent with Cardiac Damage > OR = 0.600 Critical Value Not every elevated troponin is indicative of MD. These values should be used with clinical judgement in examining the patient's clinical picture for diagnosis. To establish a diagnosis of MD versus myocardial injury, there must be a demonstrated rise and/or fall in the troponin values, in addition to ischemic symptoms, EKG changes, new regional wall motion abnormality, and/or angiographical evidence. PLEASE NOTE: REFERENCE RANGES EDITED 17 Performed By: #### L501.4010 #### [facility] [address] [facility] [place], [address] EMERGENCY DEPARTMENT Observed: 03/14/2018 Status: F Source: [place] SUMMARY 9:19 AM [facility] REPOSITORY [facility] Medical Records Department [address] [place] [address] Emergency Department Summary 03/14/18 0916 MR#: [id number] Acct: [id number] Name: RUSS CARSON Rep #: [id number] : 1935 82 From: Abhijit Bateman DO [...] fibrillation-new onset] This note was generated with NCTech dictation software. It may contain incorrect words, [...] your Primary Care Provider. Call [facility] ([phone]) or report to the closest Emergency Room. Call 911 if necessary. 03/14/18 0919 <Electronically signed by Abhijit Bateman DO> Date Abhijit Bateman DO Cosigner Signature (If Indicated): Date CC: Pavan Rossi III, MD CHEST 1 VIEW Observed: 03/14/2018 Status: F Source: [place] (PORTABLE) 8:22 AM [facility] REPOSITORY [facility] Imaging Services [facility] [place] [address] [place] [address] Chest 1 View (Portable) MR#: [id number] Acct: [id number] Name: RUSS CARSON Rep #: [id number] : 1935 M 82 From: Gela Sheppard MD PCP: Pavan Rossi III, MD Status: REG ER Study: Chest 1 View (Portable) Date of Exam: 03/14/18 Exam# [id number] Ordering Dr: Abhijit Bateman DO STUDY: X-RAY [...] Pavan Rossi III, MD; Abhijit Bateman DO Taper Operator: Signed CBC W/DIFF, AUTOMATED Collected: 03/14/2018 Status: F Source: [place] 8:12 AM [facility] REPOSITORY TYPE CODE TESTS RESULT OUT OF [...] Lymph 0.75 Performed By: #### L100.0100 #### [facility] [address] [place], [place] [address]all [facility] [place], [address] BASIC METABOLIC Collected: 03/14/2018 Status: F Source: [place] PROFILE (BMP) 8:12 AM [facility] REPOSITORY TYPE CODE TESTS RESULT OUT OF [...] 10 Performed By: #### L500.2500, L501.4010 #### [facility] [address] [facility]. [place], [place], [address] TROPONIN-I Collected: 03/14/2018 Status: F Source: [place] 8:12 AM [facility] REPOSITORY TYPE CODE TESTS RESULT OUT OF RANGE REFERENCE UNITS LAB L501.4010 <0.045 ng/mL Normal < 0.015 TROPONIN-I Result Comment: TROPONIN-I EXPECTED VALUES <0.045 Negative 0.045 - 0.590 Consistent with Cardiac Damage > OR = 0.600 Critical Value Not every elevated troponin is indicative of MD. These values should be used with clinical judgement in examining the patient's clinical picture for diagnosis. To establish a diagnosis of MD versus myocardial injury, there must be a demonstrated rise and/or fall in the troponin values, in addition to ischemic symptoms, EKG changes, new regional wall motion abnormality, and/or angiographical evidence. PLEASE NOTE: REFERENCE RANGES EDITED 17 Performed By: #### L500.2500, L501.4010 #### [facility] [address] [place], [place], [address] D-DIMER QUANTITATIVE Collected: 03/14/2018 Status: F Source: [place] (DVT/PE) 8:12 AM [facility] REPOSITORY TYPE CODE TESTS RESULT OUT OF RANGE REFERENCE UNITS LAB L300.8000 0.27-0.49 FEU/ug/m Low D-DIMER < 0.27 QUANT Result Comment: NORMAL D-Dimer level (<0.50) indicates no DVT or PE. Performed By: #### L300.8000 #### [facility] [address] [place], [address] LIVER PROFILE Collected: 03/14/2018 Status: F Source: [place] 8:12 AM [facility] REPOSITORY TYPE CODE TESTS RESULT OUT OF [...] 0.11 Performed By: #### L500.3400, L501.9520 #### [facility] [address] [facility] [place], [address] THYROID STIM HORMONE Collected: 03/14/2018 Status: F Source: [place] (TSH) 8:12 AM [facility] REPOSITORY TYPE CODE TESTS RESULT OUT OF RANGE REFERENCE UNITS LAB L501.9520 0.358-3.74 uIU/mL Normal TSH 3.44 Performed By: #### L500.3400, L501.9520 #### [facility] [address] [place], [address] MAGNESIUM Collected: 03/14/2018 Status: F Source: [place] 8:12 AM [facility] REPOSITORY TYPE CODE TESTS RESULT OUT OF RANGE REFERENCE UNITS LAB L501.5200 1.6-2.6 mg/dL Normal MG 1.9 Result Comment: Moderate Hemolysis, Result may be falsely increased. Performed By: #### L501.5200 #### [facility] [address] [place], [address] BNP,B-TYPE NATRIURETIC Collected: 03/14/2018 Status: F Source: [place] PEPTIDE 8:12 AM [facility] REPOSITORY TYPE CODE TESTS RESULT OUT OF RANGE REFERENCE UNITS LAB L503.6620 0-100 pg/mL Normal B-TYPE 77.2 TASHA PEP Performed By: #### L503.6620 #### [facility] [address] [place], [address] ABDOMEN LIMITED Observed: 03/13/2018 Status: F Source: [place] 8:47 AM [facility] REPOSITORY [facility] Imaging Services [address] [place] [address] Abdomen Limited MR#: [id number] Acct: [id number] Name: RUSS CARSON Rep #: [id number] : 1935 M 82 From: Chilo Marrufo MD PCP: Pavan Rossi III, MD Status: REG CLI Study: Abdomen Limited Date of Exam: 03/13/18 Exam# [id number] Ordering Dr: Ander Rossi MD STUDY: ABDOMINAL [...] Pavan Rossi III, MD; Ander Rossi MD Taper Operator: Signed SURGERY VISIT REPORT Observed: 03/12/2018 Status: F Source: [place] 4:11 PM [facility] REPOSITORY [facility] [address] [place] [address]. [address] [place] [address] OFFICE VISIT Date of Service: 03/12/18 MR#: [id number] Acct: [id number] Name: RUSS CARSON Rep #: [id number] : 1935 Provider: Ander Rossi MD Age/Sex: 82/M Location: [facility] Status: Signed with Addenda ADDENDUM by Ander [...] ER FU Chief Complaint: broken right arm Printer Assistant Required: No Is patient in pain?: No [...] have a hernia. He presented to the [facility] emergency room on March 06, 2018 and attempt to facilitate management. He does not seek medical attention frequently and states that it has been multiple years since he is gone into see his primary care physician Dr. Pavan Rossi III. On March 06, [address] scan was obtained at the [facility]. This demonstrates a small hiatal hernia. [...] DISCHARGE INSTRUCTION Observed: 03/06/2018 Status: F Source: [place] 9:54 PM [facility] REPOSITORY [facility] Medical Records Department [address] [place] [address] Discharge Instruction 03/06/18 2153 MR#: [id number] Acct: [id number] Name: RUSS CARSON Rep #: [id number] : 1935 82 From: Abhijit Bateman DO PCP: Pavan Rossi III, MD Status: REG ER ED Disposition - Plan for ED Patient: Chief Complaint: Abd Pain Instructions: ED Hernia Inguinal Prescriptions: Hydrocodone Bitart/Apap 5-325 [Rich[place] 5MG-325MG] 1 tab PO Q4H PRN PRN 2 Days #14 tab PRN Reason: Pain Referrals: Pavan Rossi III, MD [Primary Care Provider] - Ander Rossi MD [STAFF PHYSICIAN] - 3-5 Days What to do if you have Problems For any increased pain, shortness of breath, bleeding, nausea or vomiting, chest pain, or any unexpected problems, contact your Primary Care Provider. Call [facility] ([phone]) or report to the closest Emergency Room. Call 911 if necessary. 03/06/182153 <Electronically signed by Abhijit Bateman DO> Date Abhijit Bateman DO Cosigner Signature (If Indicated): Date CC: Pavan Rossi III, MD EMERGENCY DEPARTMENT Observed: 03/06/2018 Status: F Source: [place] SUMMARY 9:53 PM [facility] REPOSITORY [facility] Medical Records Department [address] [facility] [place] [address] Emergency Department Summary 03/06/182149 MR#: [id number] Acct: [id number] Name: RUSS CARSON Rep #: [id number] : 1935 82 From: Abhijit Bateman DO [...] [Patient will be given a prescription for Rich[place] for pain. Patient advised use a stool softener daily.] Disposition: [Discharged home in stable condition] Impression: [Left inguinal hernia] This note was generated with NCTech dictation software. It may contain incorrect words, [...] your Primary Care Provider. Call [facility] ([phone]) or report to the closest Emergency Room. Call 911 if necessary. 03/06/18 2153 <Electronically signed by Abhijit Bateman DO> Date Abhijit Bateman DO Cosigner Signature (If Indicated): Date CC: Pavan Rossi III, MD URINALYSIS, COMPLETE Collected: 03/06/2018 Status: F Source: [place] 7:30 PM [facility] REPOSITORY Order Comment: How was Urine Obtained? [...] URINE SEEN Performed By: #### L400.0001 #### [facility] [address] [place], [address] CBC W/DIFF, AUTOMATED Collected: 03/06/2018 Status: F Source: [place] 7:07 PM [facility] REPOSITORY TYPE CODE TESTS RESULT OUT OF [...] Lymph 1.75 Performed By: #### L100.0100 #### [facility] [address] [place], [address] BASIC METABOLIC Collected: 03/06/2018 Status: F Source: RONDA PROFILE ([facility]) 7:07 PM [facility] REPOSITORY TYPE CODE TESTS RESULT OUT OF [...] GAP 9 Performed By: #### L500.2500 #### [facility] [address] [facility] [place], [address] LACTIC ACID Collected: 03/06/2018 Status: F Source: RONDA 7:07 PM [facility] REPOSITORY Order Comment: Yes/No query for Sepsis Lactate Rule Y TYPE CODE TESTS RESULT OUT OF RANGE REFERENCE UNITS LAB L503.6005 0.4-2.0 mmol/L Normal LACTIC ACID 1.1 Performed By: #### L503.6005 #### [facility] [address] [place], [address] ABDOMEN/PEL W ORAL CONT Observed: 03/06/2018 Status: F Source: RONDA ONLY 6:52 PM [facility] REPOSITORY [facility] Imaging Services [address] [place] [address] Abdomen/Pel W ORAL Cont Only MR#: [id number] Acct: [id number] Name: RUSS CARSON Rep #: [id number] : 1935 M 82 From: Kady Higgins MD PCP: Pavan Rossi III, MD Status: REG ER Study: Abdomen/Pel W ORAL Cont Only Date of Exam: 03/06/18 Exam# [id number] Ordering Dr: Abhijit Bateman DO STUDY: CT [...] Pavan Rossi III, MD; Abhijit Bateman DO Taper Operator: Signed CNPTOUTREACH Observed: 03/05/2018 Status: COMPLETED Source: [place] 12:00 AM [facility] REPOSITORY Patient Outreach (FAMPST) RUSS CARSON ([id number]) 1935 M Date Time Provider Department 03/05/18 PAVAN ROSSI III FAMPST During your visit today, we recorded the following information about you: Allergies As of Date: 03/05/2018 Noted Allergy Reaction LIPITOR (ATORVASTATIN CALCIUM) 03/02/2005 Comments: myalgia PENICILLINS 03/01/2005 SULFA (SULFONAMIDE ANTIBIOTICS) 03/01/2005 Date Reviewed: 12/08/2011 Reviewed by: Desiree Mirza LPN - Fully Assessed Visit Diagnosis:Medication management [Z79.899] Order(s):LIPID PANEL BASIC [SQLIPB] Order #: [id number] FUTURE Prescriptions as of 03/05/2018 Sig: ACETAMINOPHEN 300 MG-CODEINE * Take 1 tablet by mouth every * Problem List As Of Date 03/05/2018 Noted Resolved HYPERLIPIDEMIA NEC/NOS [E78.5] OSTEOARTHROS NOS-UNSPEC [M19.90] INVALID FOR* Encounter Status:Closed by [employer], PRODUSER on 03/20/18 ALLERGIES ALLERGIES DATE TYPE / CODE NAME / CODE REACTION SEVERITY SOURCE 03/15/2018 Drug Penicillins/F Unknown- been Unknown [facility] Allergy/4160 [id number](RXN 30yrs ago [facility] [address](SNOMED ORM) Repository CT) 03/15/2018 Drug Sulfa Unknown-been Unknown [facility] Allergy/4160 (Sulfonamide 30yrs ago [place] [address](SNOMED Antibiotics)/ Repository CT) [id number](RX NORM) ENCOUNTERS ENCOUNTERS ADMIT/DISCHARGE ACCOUNT ADMITTING ENCOUNTER LOCATION SOURCE NUMBER CLASS 03/18/2018/ [id number] Ambulatory [facility] 9 1 [facility] ing:SDCRoom: Repository [id number] 03/14/2018/ [id number] Behzad Acosta Ambulatory [facility] [place] 9 0 [facility] ing:PCURoom: Repository [id number]: 1 03/14/2018 [id number] Behzad Acosta Ambulatory BMSBuilding:B [place] 3 [place] Repository 03/14/2018 [id number] Behzad Acosta Ambulatory BMSBuilding:B [place] 0 MS.CF[facility] Repository 03/14/2018 [id number] Behzad Acosta Ambulatory BMSBuilding:B [place] 7 MS.[facility] Repository 03/14/2018/ [id number] Ambulatory [place] 9 8 [facility] ing:EN Repository 03/13/2018 [id number] Ambulatory [place] [facility] 8 [facility] ing:US Repository 03/12/2018/ [id number] Ambulatory BMSBuilding:B [place] 9 3 MS.[facility] Repository 03/06/2018/ [id number] Emergency [place] 9 9 [facility] ing:ED Repository PAYERS PAYERS ENCOUNTER GUARANTOR PAYER SUBSCRIBER SOURCE 03/18/2018 RUSS Hester Primary RUSS Zabala [id number] [facility] [id number] 12/27/17Policy Number: Repository [id number]: 330 [id number] [phone] () Date:5945-01-95BV[address] [address]BA: 03/18/2018 Secondary NOT GIVENUNK [place] Insurance:SELF PAY [facility] Number: Effective Repository Date:2018-03-12 03/14/2018 RUSS Hester Primary RUSS Zabala [id number] [facility] : [id number]Policy Number: Repository [id number]: 330) [id number] [phone] (HP) Date:3412-11-49KH [address] [place] [address]ZU: 03/14/2018 Secondary NOT GIVENUNK [place] Insurance:SELF PAY [facility] Number: Effective Repository Date:2018-03-14 03/14/2018 RUSS Hester Primary RUSS Zabala [id number] [facility] : [id number], [place] 12/27/17Policy Number: Repository [id number]: (330 [id number] [phone] (HP) Date:4049-91-47PP [address] [place] [address]PL: 03/14/2018 Secondary NOT GIVENUNK [place] Insurance:SELF PAY [facility] Number: Effective Repository Date:2018-03-14 03/14/2018 RUSS W Primary RUSS Zabala [id number] [facility] : [id number], [place] 12/27/17Policy Number: Repository [id number]: (330) [id number] [phone] (HP) Date:1309-00-53AR [address] [address]MK: 03/14/2018 Secondary NOT GIVENUNK [place] Insurance:SELF PAY [facility] Number: Effective Repository Date:2018-03-14 03/14/2018 RUSS W Primary RUSS Zabala [id number] [facility] : [id number], [place] 12/27/17Policy Number: Repository [id number]: (330) [id number] [phone] (HP) Date:3101-05-41CB [address] [address]HF: 03/14/2018 Secondary NOT GIVENUNK [place] Insurance:SELF PAY [facility] Number: Effective Repository Date:2018-03-14 03/14/2018 RUSS W Primary RUSS Zabala [id number] Insurance:[facility]arito [facility] : [id number], [place] 12/27/17Policy Number: Repository [id number]: 330 [id number] [phone] (HP) Date:2116-46-49BD [address] [address]BN: 03/14/2018 Secondary NOT GIVENUNK [place] Insurance:SELF PAY [facility] Number: Effective Repository Date:2018-03-12 03/13/2018 RUSS W Primary RUSS Zabala [id number] [facility] : [id number], [place] 12/27/17Policy Number: Repository [id number]: (330 [id number] [phone] (HP) Date:9424-64-74YI [address] [address]ED: 03/13/2018 Secondary NOT GIVENUNK [place] Insurance:SELF PAY [facility] Number: Effective Repository Date:2018-03-12 03/12/2018 RUSS Primary RUSS Zabala [id number] Insurance[facility] : [id number], [place] 12/27/17Policy Number: Repository [id number]: (330 [id number] [phone] () Date:5241-11-90FM [address] [address]NR: 03/12/2018 Secondary NOT GIVENUNK [place] Insurance:SELF PAY [facility] Number: Effective Repository Date:2018-03-12 03/06/2018 RUSS W Primary RSUS Zabala [id number] Insurance[facility] : [id number], [place] 12/27/17Policy Number: Repository [id number]: (576) [id number] [phone] () Date:6838-12-15XT [address] [place] [address]YS: 03/06/2018 Secondary NOT GIVENUNK [place] Insurance:SELF PAY [facility] Number: Effective Repository Date:2018-03-06
== END 2018-03-14 07:51 | disposition short-term general hospital (02) ==
LOC: EN 05:17 → AC 05:18
PROVIDERS: Family Provider Family Medicine; PCP Family Medicine; Referring Provider Surgery; Visit Provider Surgery
PROC: 0DJD8ZZ Inspection of Lower Intestinal Tract, Via Natural or Artificial Opening Endoscopic (ICD-10-PCS; CPT 45378; principal; 2018-03-14 06:25)
DX: Z12.11 Encounter for screening for malignant neoplasm of colon (principal); K57.30 Diverticulosis of large intestine without perforation or abscess without bleeding; K64.8 Other hemorrhoids; I49.3 Ventricular premature depolarization; K40.90 Unilateral inguinal hernia, without obstruction or gangrene, not specified as recurrent; N28.1 Cyst of kidney, acquired; K80.20 Calculus of gallbladder without cholecystitis without obstruction; N40.0 Benign prostatic hyperplasia without lower urinary tract symptoms; M13.80 Other specified arthritis, unspecified site; Z88.0 Allergy status to penicillin; Z88.2 Allergy status to sulfonamides; Z79.899 Other long term (current) drug therapy; I25.2 Old myocardial infarction; Z87.891 Personal history of nicotine dependence
CPT/HCPCS: G0121; 93005; J7120

== ENCOUNTER 2018-03-14 08:08 | Observation (INO) | payer MEDICARE, SELFPAY ==
[2018-03-14] VITALS (11 sets, daily range): BP systolic 98–143; BP diastolic 60–87; PULSE 75–89; RESP 16–20; TEMP 36.4–36.9; O2SAT 92–95; BMI 24.2; BMI 22.6; BMI 22.0
--- NOTE | 2018-03-14 08:21 | RAD_ITS ---
STUDY: X-RAY CHEST REASON FOR EXAM: Male, 82 years old. PT STATES HAD A Tquot;COLON SEIZURETquot;. NO CHEST COMPLAINTS. HAVING SURGERY X 4 DAYS TECHNIQUE: Single AP portable view of the chest. COMPARISON: December 30, 2015 FINDINGS: Cardiac monitoring leads are present. The lungs are clear and expanded. Scattered calcified granuloma. There is no demonstrated pleural abnormality. There is borderline cardiomegaly. Normal mediastinum and dave. Normal visualized pulmonary arteries. There is atherosclerotic calcification of the aortic arch with tortuosity. Normal visualized thoracic spine. There is degenerative osteoarthritis of the bilateral shoulders. There is no demonstrated abnormality of the visualized soft tissue structures of the upper abdomen. RAD/Chest 1 View (Portable) IMPRESSION: Chronic changes. No acute intrathoracic process. Electronically Signed: Gela Sheppard MD at 8:59 EST , Service support ,
[2018-03-14] MEDS: Lactated Ringers 1,000 ML 150 ML IV (08:48)
[2018-03-14 08:49] LABS: Absolute Lymphocyte Count 0.75 X10^3/ul (0.83-4.51); Absolute Neutrophil Count 5.2 X10^3/uL (2.0-7.7); Basophil# 0.02 X10^3/uL; Basophil% 0.3 % (0-1); Eosinophil# 0.06 X10^3/uL; Eosinophils% 0.9 % (0-5); Hematocrit 43.8 % (40-54); Hemoglobin 14.4 g/dl (13.0-16.5); Lymphocyte # 0.75 X10^3/ul (4.0); Lymphocyte % 11.5 % (19-41); Mean Corp Hgb Conc 32.9 g/gl (32-36); Mean Corpuscular Hgb 30.9 pg (27.0-32.0); Monocyte# 0.45 X10^3/uL; Monocyte% 6.9 % (0-10); Neutrophil # 5.22 X10^3/uL (2.7-7.7); Neutrophil % 80.1 % (47-70); POSITIVE COUNT NO; POSITIVE DIFFERENTIAL NO; POSITIVE MORPHOLOGY NO; Platelet Count 200 K/mm3 (150-450); RBC Distribution Width CV 13.8 % (11.6-14.6); RBC Distribution Width SD 47.3 fl (35.1-43.9); Red Blood Count 4.66 M/mm3 (4.6-6.2); White Blood Count 6.5 K/mm3 (4.4-11.0)
[2018-03-14 09:01] LABS: Anion Gap 10 (5-15); BUN 14 mg/dL (7-18); BUN/Creat Ratio 15.4 RATIO (10-20); Calcium,Total 8.4 mg/dL (8.5-10.1); Chloride 107 mmol/L (98-107); Creatinine, Serum 0.91 mg/dL (0.70-1.30); EST Glomerular Filtration Rate 85 mL/min (>60); Est Glom Filt Rate - Afr Amer 102 mL/min (>60); Glucose 143 mg/dL (74-106); Potassium 4.4 mmol/L (3.5-5.1); Sodium Level 141 mmol/L (136-145)
[2018-03-14] MEDS: Ondansetron 4 MG/2 ML Vial IV (09:13)
--- NOTE | 2018-03-14 09:16 | ED.VISSUMM ---
- ER Visit Summary Date of Service: 03/14/18 Chief Complaint: [Atrial fibrillation] History of Present Illness: The patient is a 82 M [presents to the emergency department from the endoscopy suite where he was undergoing a colonoscopy today. Patient was noted to go into an abnormal heart rhythm and EKG performed in endoscopy showed atrial fibrillation. Patient does not have a history of this. He denies any chest pain or palpitations. He denies feeling short of breath. He denies recent illness. Patient scheduled to have a hernia repair next week. General surgeon Dr. Ander Rossi discussed the case with hospitalist who advised patient come through the emergency department.] Physical Examination: [HEENT-PERRLA, EOMI. Cranial nerves II through XII grossly intact. TMs clear. Mucous membranes moist. No adenopathy. Cardiovascular-irregularly irregular. No murmurs auscultated. Lungs-clear to auscultation, chest wall stable without crepitus or subcu emphysema Abdomen-normoactive bowel sounds, soft, nontender, no rebound or rigidity, no peritoneal signs. Extremities-intact ?4, normal range of motion, normal pulses, atraumatic] Test Results: [EKG obtained showed atrial fibrillation with a ventricular rate of 94 bpm with no acute I segment changes. Patient did have Q waves inferiorly and is possible he may have had an old inferior wall infarct. CBC with differential showed a white blood cell count 6.5, hemoglobin 14, hematocrit 44, platelets 200. Chemistries unremarkable. Troponin less than 0.015. ] Emergency Department Course and Treatment: [Fluids continued from endoscopy. Patient was given Zofran for nausea.] Treatment Plan: Admit for further workup and treatment of his A. fib [] Disposition: [Admit] Impression: [Atrial fibrillation-new onset] This note was generated with [employer]ation software. It may contain incorrect words, spelling, and punctuation that were not noted in review of the chart prior to signing ED Disposition - Plan for ED Patient: Chief Complaint: Palpitations Referrals: Pavan Rossi III, MD [Primary Care Provider] -
--- NOTE | 2018-03-14 09:19 | ECHOD_ITS ---
Reason For Study: ATRIAL FIB-FLUTTER Procedure This was a 2D Doppler, Color Flow transthoracic echocardiogram. The study was technically difficult. Exam performed portable in ED. Left Ventricle Normal LV size. Left ventricular systolic function is normal. The estimated ejection fraction is 55 %. Unable to assess diastolic dysfunction. No regional wall motion abnormalities noted. Right Ventricle Mildly dilated right ventricle. Normal systolic function. Atria The left atrium is moderately enlarged. The right atrium is mildly enlarged. No doppler evidence for ASD. Mitral Valve There is no mitral annular calcification. Normal mitral valve. Mild (1+) mitral valve insufficiency. Tricuspid Valve Normal tricuspid valve. Mild tricuspid valve insufficiency. Right ventricular systolic pressure estimated to be 27 mmHg. Aortic Valve Trisinus/trileaflet aortic valve. Mild focal aortic valve calcification. Pulmonic Valve The pulmonic valve is not well visualized. Trivial pulmonic valve insufficiency. Great Vessels Normal sized aortic root. Pericardium/Pleural No pericardial effusion. MMode/2D Measurements & Calculations LVIDd: 4.4 cm IVSd: 0.97 cm Ao root diam: 3.2 cm LVIDs: 2.9 cm LVPWd: 1.1 cm RVDd: 4.0 cm FS: 34.6 % LAV(MOD-bp): 84.2 ml LVAd ap4: 26.9 cm2 SV(MOD-sp4): 45.1 ml LAV(MOD-bp) Indexed: 46.7 ml/m2 EDV(MOD-sp4): 81.5 ml LAV(MOD-sp2): 78.9 ml EDV(sp4-el): 83.5 ml LAV(MOD-sp4): 75.9 ml LVAs ap4: 16.2 cm2 ESV(MOD-sp4): 36.4 ml ESV(sp4-el): 36.6 ml EF(MOD-sp4): 55.3 % EF(sp4-el): 56.1 % SV(sp4-el): 46.8 ml LA A4 area: 25.6 cm2 LA dimension(2D): 4.6 cm RA A4 area: 22.2 cm2 Doppler Measurements & Calculations MV E max ryan: 79.4 cm/sec Ao V2 max: 139.5 cm/sec LV V1 max: 79.7 cm/sec Ao max P.8 mmHg LV V1 max P.6 mmHg PA V2 max: 129.1 cm/sec PI end-d ryan: 72.1 cm/sec TR max ryan: 246.6 cm/sec TR max P.4 mmHg Interpretation Summary The study was technically difficult. Left ventricular systolic function is normal. The estimated ejection fraction is 55 %. Mildly dilated right ventricle. The left atrium is moderately enlarged. The right atrium is mildly enlarged. Mild (1+) mitral valve insufficiency. Mild tricuspid valve insufficiency. Mild focal aortic valve calcification. Trivial pulmonic valve insufficiency. Right ventricular systolic pressure estimated to be 27 mmHg. Unable to assess diastolic dysfunction. Ordering Physician: Behzad Tejada Referring Physician: SAKINA PISANO III Performed By: Fadia Mercado RDCS
--- NOTE | 2018-03-14 09:25 | PCM.HP.STD ---
Problem List (1) Afib Status: Acute (2) Flutter-fibrillation Status: Chronic (3) Myocardial infarction Status: Chronic (4) Screening for intestinal cancer Status: Chronic (5) Kidney cysts Status: Chronic (6) Prostate enlargement Status: Chronic (7) Gallstones Status: Chronic (8) Left inguinal hernia Status: Chronic (9) Displaced fracture of shaft of right ulna Status: Chronic Qualifiers: Encounter type: initial encounter Fracture type: closed Fracture morphology: oblique Qualified Code(s): S52.231A - Displaced oblique fracture of shaft of right ulna, initial encounter for closed fracture (10) Displaced segmental fracture of shaft of radius, right arm, initial encounter for closed fracture Status: Acute Qualifiers: Encounter type: initial encounter Qualified Code(s): S52.361A - Displaced segmental fracture of shaft of radius, right arm, initial encounter for closed fracture History of Present Illness Date of Admission: 03/14/18 Chief Complaint: Irregular heartbeat The patient is a 82 year old M past medical history significant for OK diagnosed in 1979 with no intervention, previous diagnosis of a flutter more than 20 years ago who was sent to the ED from the OR after colonoscopy. Patient was apparently undergoing evaluation for an upcoming left inguinal herniorrhaphy scheduled on 03/18/2018. Patient was found to have irregular heartbeat EKG demonstrated A. fib. Patient was subsequently sent to the ED and admitted to a monitored bed for further management. On further questioning patient denied any palpitation denied any chest pain denied any shortness of breath no nausea no vomiting. Patient states he was told he had a flutter more than 20 years ago but has since not been evaluated by any physician. Patient was not sure whether he is going in and out of heart rhythm. Past Medical History Past Medical History (Chronic Problems): Chronic Problems Flutter-fibrillation (Chronic) Myocardial infarction (Chronic) Screening for intestinal cancer (Chronic) Kidney cysts (Chronic) Prostate enlargement (Chronic) Gallstones (Chronic) Left inguinal hernia (Chronic) Displaced fracture of shaft of right ulna (Chronic) Medical History: Medical History (Last Reviewed 03/14/18 @ 12:50 by Behzad Tejada MD) Screening for intestinal cancer (Acute) Z12.10 Kidney cysts (Acute) N28.1 Prostate enlargement (Acute) N40.0 Gallstones (Acute) K80.20 Left inguinal hernia (Acute) K40.90 Displaced fracture of shaft of right ulna (Acute) S52.201A Displaced segmental fracture of shaft of radius, right arm, initial encounter for closed fracture (Acute) S52.361A Allergies Penicillins Allergy (Verified 03/14/18 08:13) Unknown- been 30yrs ago Sulfa (Sulfonamide Antibiotics) Allergy (Verified 03/14/18 08:13) Unknown-been 30yrs ago Home Medications: Ambulatory Orders Medication Instructions Recorded tamsulosin 0.4 mg capsule 0.4 mg PO DAILY #30 cap 03/12/18 Surgical History: Surgical History (Last Reviewed 03/14/18 @ 12:50 by Behzad Tejada MD) history ORIF right arm Smoking Status: Former smoker - *Family History Maternal Family History: Family History (Last Reviewed 03/14/18 @ 12:50 by Behzad Tejada MD) Sister Diabetes History Items: - - No coronary artery disease Paternal Family History: Family History (Last Reviewed 03/14/18 @ 12:50 by Behzad Tejada MD) Sister Diabetes History Items: - - No coronary artery disease Offspring Family History: Family History (Last Reviewed 03/14/18 @ 12:50 by Behzad Tejada MD) Sister Diabetes History Items: No pertinent history Review of Systems Constitutional: Denies: Anorexia, Chills, Fever, Night Sweats, Weight Change HEENT: Denies: Head Aches, Sinus Congestion, Sinus Drainage Cardiovascular: Denies: Chest Pain, Orthopnea, Palpitations, Paroxysmal Noc. Dyspnea Respiratory: Denies: Cough, Shortness of breath at rest, Shortness of breath upon exertion, Sputum production Gastrointestinal: Denies: Abdominal Pain, Hematemesis, Hematochezia, Nausea, Melena, Vomiting Genitourinary: Denies: Dysuria, Frequency, Hematuria, Urgency Musculoskeletal: Reports: Joint Pain. Denies: Joint Tenderness Skin: Denies: Rash Neurological: Denies: Focal weakness, Numbness, Tingling Psychiatric: Denies: Homicidal Ideations, Suicidal Ideations Hematologic/ Lymphatic: Denies: Easy Bruising, Easy Bleeding VTE Information - Inpt Only VTE Present on Admission: No VTE Mechan Device Prophylaxis: Knee High CHERI Hose VTE Pharm Prophylaxis ordered?: Yes Patient Problems: Active and Suspected Problems Afib (Acute) Objective: GENERAL: cooperative HEENT: Atraumatic; moist oral mucosa EYES; Anicteric, Normal Conjunctiva NECK; supple, normal thyroid, RESPIRATORY: Diminished to auscultation bilaterally, CARDIOVASCULAR: Irregular S1 S2, GI: soft, non-tender, normoactive bowel sounds, : No Renal angle tenderness; EXTREMITIES: No edema, no clubbing, no cyanosis. MUSCULOSKELETAL: No Joint Tenderness; NEURO: Awake; no lateralizing signs. SKIN: No Rash PSYCH; Normal affect - Physical Exam Vital Signs Temp Pulse Resp BP Pulse Ox 97.5 F L 82 19 H 98/87 H 94 03/14/18 08:10 03/14/18 08:14 03/14/18 08:14 03/14/18 08:14 03/14/18 08:14 Oxygen Flow Rate (L/min) 2 Oxygen Delivery Method Nasal Cannula Weight: 67.585 kg Body Mass Index (BMI) 22.6 Laboratory Tests Past 24 Hrs 03/14/18 03/14/18 08:12 08:12 WBC 6.5 RBC 4.66 Hgb 14.4 Hct 43.8 MCV 94.0 MCH 30.9 MCHC 32.9 RDW 13.8 RDW Differential 47.3 H Plt Count 200 MPV 11.0 Immature Gran % (Auto) 0.300 Neut % (Auto) 80.1 H Lymph % (Auto) 11.5 L [place] % (Auto) 6.9 Eos % (Auto) 0.9 Baso % (Auto) 0.3 Absolute Neuts (auto) 5.2 Absolute Lymphs (auto) 0.75 L Total Counted Not Reportable Sodium 141 Potassium 4.4 Chloride 107 Carbon Dioxide 24.0 Anion Gap 10 BUN 14 Creatinine 0.91 Estim Creat Clear Calc 58.80 Est GFR (MDRD) Af Amer 102 Est GFR (MDRD) Non-Af 85 BUN/Creatinine Ratio 15.4 Glucose 143 H Calcium 8.4 L Troponin I < 0.015 Assessment/Plan All Active Problems Afib (Acute) Displaced segmental fracture of shaft of radius, right arm, initial encounter for closed fracture (Acute) Patient is an 82-year-old gentleman discovered A. fib following colonoscopy 1. A. fib possibly paroxysmal in nature given patient previous diagnosis of A. fib. Patient has been admitted to a monitored bed for continuous telemetry monitoring. As part of his evaluation ordered a TSH d-dimer 2D echo (to rule out structural heart disease) as well as a nuclear stress test on 03/15/2018 to rule out ischemia. Consultation placed to cardiology. Patient age places him at the [id number] 2 score of at least 2 and will therefore require systemic anticoagulation to prevent strokes however in view of his scheduled left inguinal herniorrhaphy will hold off. 2. Left inguinal herniorrhaphy scheduled to undergo repair on 03/18/2018 3. Generalized osteoarthritis 5. Remote history of OK in 1979 patient did not undergo any intervention 4. DVT prophylaxis SC Lovenox Code Visit OBSV E&M: [id number] Initial observation care L3
[2018-03-14 09:44] LABS: D-Dimer Quantitative (DVT/PE) < 0.27 FEU/ug/m (0.27-0.49)
[2018-03-14 09:58] LABS: AST(SGOT) 30 U/L (15-37); Alanine Aminotransfer ALT/SGPT 15 U/L (16-61); Albumin, Serum 3.4 g/dL (3.2-5.0); Alkaline Phosphatase 52 U/L (45-117); Bilirubin, Direct 0.11 mg/dL (0.00-0.30); Globulin 3.5 g/dL (2.2-4.2); Magnesium 1.9 mg/dL (1.6-2.6); Protein, Total 6.9 g/dL (6.4-8.2); Thyroid Stim Hormone (TSH) 3.44 uIU/mL (0.358-3.74)
[2018-03-14 10:02] LABS: BNP,B-Type NATRIURETIC PEPTIDE 77.2 pg/mL (0-100)
[2018-03-14] MEDS: 0.9% Normal Saline 1,000 ML 100 ML IV (10:50)
--- NOTE | 2018-03-14 17:19 | PCM.CONS.C ---
Reason for Consult Date of Consultation: 03/14/18 Reason for Consultation: Evaluation of irregular heartbeat History of Present Illness: The patient is a 82 year old M with a past medical history significant for [place] diagnosed in 1979 with no intervention, previous diagnosis of a flutter more than 20 years ago who was sent to the ED from the OR after colonoscopy. Patient was apparently undergoing evaluation for an upcoming left inguinal herniorrhaphy scheduled on 03/18/2018. Patient was found to have irregular heartbeat EKG demonstrated A. fib. Patient was subsequently sent to the ED and admitted to a monitored bed for further management. On further questioning patient denied any palpitation denied any chest pain denied any shortness of breath no nausea no vomiting. Patient states he was told he had a flutter more than 20 years ago but has since not been evaluated by any physician. He does not feel any of his irregularities. He is currently asymptomatic. He has had no dizziness or diaphoresis no near syncope or syncope. Past Medical History Allergies/Adverse Reactions: Allergies Penicillins Allergy (Verified 03/14/18 08:13) Unknown- been 30yrs ago Sulfa (Sulfonamide Antibiotics) Allergy (Verified 03/14/18 08:13) Unknown-been 30yrs ago Home Medications: Ambulatory Orders Medication Instructions Recorded tamsulosin 0.4 mg capsule 0.4 mg PO DAILY #30 cap 03/12/18 Past Medical History (Chronic Problems): Chronic Problems (Last Reviewed 03/14/18 @ 12:50 by Behzad Tejada MD) Flutter-fibrillation (Chronic) Myocardial infarction (Chronic) Screening for intestinal cancer (Chronic) Kidney cysts (Chronic) Prostate enlargement (Chronic) Gallstones (Chronic) Left inguinal hernia (Chronic) Displaced fracture of shaft of right ulna (Chronic) - *Family History Maternal Family History: Family History (Last Reviewed 03/14/18 @ 12:50 by Behzad Tejada MD) Sister Diabetes History Items: - - No coronary artery disease Paternal Family History: Family History (Last Reviewed 03/14/18 @ 12:50 by Behzad Tejada MD) Sister Diabetes History Items: - - No coronary artery disease Offspring Family History: Family History (Last Reviewed 03/14/18 @ 12:50 by Behzad Tejada MD) Sister Diabetes History Items: No pertinent history Smoking Status: Former smoker Alcohol: None Drugs: None Review of Systems - Review of Systems General: Denies: Fever, Night Sweats, Fatigue HEENT: Denies: Vision Change Cardiovascular: Denies: Chest Discomfort, Shortness of Breath, Orthopnea, PND, Peripheral Edema, Palpitations, Lightheadedness, Dizziness, Near Syncope, Syncope Respiratory: Denies: Cough, Sputum Production, Hemoptysis Gastrointestinal: Denies: Hematemesis, Hematochezia, Melena Genitourinary: Denies: Dysuria, Hematuria Muscoloskeletal: Denies: Myalgias Skin: Denies: Rash Neurological: Denies: Dizziness Psychiatric: Denies: Anxiety Endocrine: Denies: Unexplained Weight Loss Hematologic/ Lymphatic: Denies: Anemia Subjectve: Pleasant gentleman in no apparent distress Objective: Vital Signs Temp Pulse Resp BP Pulse Ox 98.3 F 80 16 115/74 93 03/14/18 16:03 03/14/18 16:39 03/14/18 16:03 03/14/18 16:03 03/14/18 16:03 Oxygen Flow Rate (L/min) 2 Oxygen Delivery Method Room Air Weight: 145 lb Body Mass Index (BMI) 22.0 Intake and Output for Last 24 Hours 03/12/18 03/13/18 03/14/18 23:59 23:59 23:59 Intake Total 427 / 427 Balance 427 / 427 General: Awake, Alert, Oriented x 3 HEENT: PERRL, EOMI, Sclera Non Icteric Neck: Supple, Good ROM, No Lymph Node Enlargement Lungs: Clear to auscultation Cardiovascular: Irregular Rhythm, Normal S1, Normal S2, No Murmurs, No Rubs, No Gallops Vascular: No Carotid Bruits, Normal Femoral Pulses, Normal Radial Pulses, Normal Dorsalis Pedal Pulse, Normal Posterior Tibial Pulses Abdomen: Bowel Sounds Present, Soft, Non Tender, No HSM, No Organomegaly Extremities: No Cyanosis, No Clubbing, No edema Skin: No Rashes Lymphatic: No Lymph Node Enlargement Neurological: No Focal Motor or Sensory Deficit 03/14/18 08:12: WBC 6.5, RBC 4.66, Hgb 14.4, Hct 43.8, MCV 94.0, MCH 30.9, MCHC 32.9, RDW 13.8, RDW Differential 47.3 H, Plt Count 200, MPV 11.0, Immature Gran % (Auto) 0.300, Neut % (Auto) 80.1 H, Lymph % (Auto) 11.5 L, [place] % (Auto) 6.9, Eos % (Auto) 0.9, Baso % (Auto) 0.3, Absolute Neuts (auto) 5.2, Total Counted Not Reportable 03/14/18 08:12: Sodium 141, Potassium 4.4, Chloride 107, Carbon Dioxide 24.0, Anion Gap 10, BUN 14, Creatinine 0.91, Est GFR (MDRD) Af Amer 102, Est GFR (MDRD) Non-Af 85, BUN/Creatinine Ratio 15.4, Glucose 143 H, Calcium 8.4 L, Troponin I < 0.015 03/14/18 08:12: Total Bilirubin 1.20 H, Direct Bilirubin 0.11 03/14/18 08:12: B-Natriuretic Peptide 77.2 03/14/18 08:12: D-Dimer Quant (PE/DVT) < 0.27 L 03/14/18 08:12: Magnesium 1.9 03/14/18 11:20: Troponin I < 0.015 03/14/18 14:35: Troponin I < 0.015 Rhythm: EKG: Atrial fibrillation with a controlled ventricular response rate ECHO: Preserved left ventricular systolic function estimated at 55% Assessment/Plan 1. Atrial fibrillation Patient presents with atrial fibrillation which is detected during the colonoscopy. The patient is asymptomatic. Previous electrocardiograms from 2016 demonstrated that the patient was noted to be atrial fibrillation. The above as well as the controlled ventricular response rate suggest that the patient has chronic persistent atrial fibrillation and that this was not a new finding. His echocardiogram corroborates mild atrial enlargement suggesting chronicity of the above. He appears to have a chads vasc score of 2 and my recommendation would be for us to put him on rivaroxaban 15 mg a day if he is not scheduled to undergo any further invasive testing. He has been scheduled for a pharmacologic stress test tomorrow, and unless there is significant ischemia detected I would recommend that he be discharged after the test. Thank you for allowing me to participate in the care of your patient. Please don't hesitate to call if any issues arise
--- NOTE | 2018-03-14 17:24 | CON.PCM_ITS ---
Reason for Consult Date of Consultation: 03/14/18 Reason for Consultation: Evaluation of irregular heartbeat History of Present Illness: The patient is a 82 year old M with a past medical history significant for [place] diagnosed in 1979 with no intervention, previous diagnosis of a flutter more than 20 years ago who was sent to the ED from the OR after colonoscopy. Patient was apparently undergoing evaluation for an upcoming left inguinal herniorrhaphy scheduled on 03/18/2018. Patient was found to have irregular heartbeat EKG demonstrated A. fib. Patient was subsequently sent to the ED and admitted to a monitored bed for further management. On further questioning patient denied any palpitation denied any chest pain denied any shortness of breath no nausea no vomiting. Patient states he was told he had a flutter more than 20 years ago but has since not been evaluated by any physician. He does not feel any of his irregularities. He is currently asymptomatic. He has had no dizziness or diaphoresis no near syncope or syncope. Past Medical History Allergies/Adverse Reactions: Allergies Penicillins Allergy (Verified 03/14/18 08:13) Unknown- been 30yrs ago Sulfa (Sulfonamide Antibiotics) Allergy (Verified 03/14/18 08:13) Unknown-been 30yrs ago Home Medications: Ambulatory Orders Medication Instructions Recorded tamsulosin 0.4 mg capsule 0.4 mg PO DAILY #30 cap 03/12/18 Past Medical History (Chronic Problems): Chronic Problems (Last Reviewed 03/14/18 @ 12:50 by Behzad Tejada MD) Flutter-fibrillation (Chronic) Myocardial infarction (Chronic) Screening for intestinal cancer (Chronic) Kidney cysts (Chronic) Prostate enlargement (Chronic) Gallstones (Chronic) Left inguinal hernia (Chronic) Displaced fracture of shaft of right ulna (Chronic) - *Family History Maternal Family History: Family History (Last Reviewed 03/14/18 @ 12:50 by Behzad Tejada MD) Sister Diabetes History Items: - - No coronary artery disease Paternal Family History: Family History (Last Reviewed 03/14/18 @ 12:50 by Behzad Tejada MD) Sister Diabetes History Items: - - No coronary artery disease Offspring Family History: Family History (Last Reviewed 03/14/18 @ 12:50 by Behzad Tejada MD) Sister Diabetes History Items: No pertinent history Smoking Status: Former smoker Alcohol: None Drugs: None Review of Systems - Review of Systems General: Denies: Fever, Night Sweats, Fatigue HEENT: Denies: Vision Change Cardiovascular: Denies: Chest Discomfort, Shortness of Breath, Orthopnea, PND, Peripheral Edema, Palpitations, Lightheadedness, Dizziness, Near Syncope, Syncope Respiratory: Denies: Cough, Sputum Production, Hemoptysis Gastrointestinal: Denies: Hematemesis, Hematochezia, Melena Genitourinary: Denies: Dysuria, Hematuria Muscoloskeletal: Denies: Myalgias Skin: Denies: Rash Neurological: Denies: Dizziness Psychiatric: Denies: Anxiety Endocrine: Denies: Unexplained Weight Loss Hematologic/ Lymphatic: Denies: Anemia Subjectve: Pleasant gentleman in no apparent distress Objective: Vital Signs Temp Pulse Resp BP Pulse Ox 98.3 F 80 16 115/74 93 03/14/18 16:03 03/14/18 16:39 03/14/18 16:03 03/14/18 16:03 03/14/18 16:03 Oxygen Flow Rate (L/min) 2 Oxygen Delivery Method Room Air Weight: 145 lb Body Mass Index (BMI) 22.0 Intake and Output for Last 24 Hours 03/12/18 03/13/18 03/14/18 23:59 23:59 23:59 Intake Total 427 / 427 Balance 427 / 427 General: Awake, Alert, Oriented x 3 HEENT: PERRL, EOMI, Sclera Non Icteric Neck: Supple, Good ROM, No Lymph Node Enlargement Lungs: Clear to auscultation Cardiovascular: Irregular Rhythm, Normal S1, Normal S2, No Murmurs, No Rubs, No Gallops Vascular: No Carotid Bruits, Normal Femoral Pulses, Normal Radial Pulses, Normal Dorsalis Pedal Pulse, Normal Posterior Tibial Pulses Abdomen: Bowel Sounds Present, Soft, Non Tender, No HSM, No Organomegaly Extremities: No Cyanosis, No Clubbing, No edema Skin: No Rashes Lymphatic: No Lymph Node Enlargement Neurological: No Focal Motor or Sensory Deficit 03/14/18 08:12: WBC 6.5, RBC 4.66, Hgb 14.4, Hct 43.8, MCV 94.0, MCH 30.9, MCHC 32.9, RDW 13.8, RDW Differential 47.3 H, Plt Count 200, MPV 11.0, Immature Gran % (Auto) 0.300, Neut % (Auto) 80.1 H, Lymph % (Auto) 11.5 L, [place] % (Auto) 6.9, Eos % (Auto) 0.9, Baso % (Auto) 0.3, Absolute Neuts (auto) 5.2, Total Counted Not Reportable 03/14/18 08:12: Sodium 141, Potassium 4.4, Chloride 107, Carbon Dioxide 24.0, Anion Gap 10, BUN 14, Creatinine 0.91, Est GFR (MDRD) Af Amer 102, Est GFR (MDRD) Non-Af 85, BUN/Creatinine Ratio 15.4, Glucose 143 H, Calcium 8.4 L, Troponin I < 0.015 03/14/18 08:12: Total Bilirubin 1.20 H, Direct Bilirubin 0.11 03/14/18 08:12: B-Natriuretic Peptide 77.2 03/14/18 08:12: D-Dimer Quant (PE/DVT) < 0.27 L 03/14/18 08:12: Magnesium 1.9 03/14/18 11:20: Troponin I < 0.015 03/14/18 14:35: Troponin I < 0.015 Rhythm: EKG: Atrial fibrillation with a controlled ventricular response rate ECHO: Preserved left ventricular systolic function estimated at 55% Assessment/Plan 1. Atrial fibrillation * Patient presents with atrial fibrillation which is detected during the colonoscopy. The patient is asymptomatic. Previous electrocardiograms from 2016 demonstrated that the patient was noted to be atrial fibrillation. The above as well as the controlled ventricular response rate suggest that the patient has chronic persistent atrial fibrillation and that this was not a new finding. * His echocardiogram corroborates mild atrial enlargement suggesting chronicity of the above. * He appears to have a chads vasc score of 2 and my recommendation would be for us to put him on rivaroxaban 15 mg a day if he is not scheduled to undergo any further invasive testing. * He has been scheduled for a pharmacologic stress test tomorrow, and unless there is significant ischemia detected I would recommend that he be discharged after the test. * * Thank you for allowing me to participate in the care of your patient. Please don't hesitate to call if any issues arise
[2018-03-14] MEDS: Tamsulosin HCl 0.4 MG Capsule PO (21:25)
[2018-03-15] MEDS: 0.9% NaCl Peripheral Flush Adult/Peds IV (03:39)
[2018-03-15 04:00] VITALS: BP 123/73; PULSE 87; RESP 16; TEMP 37; O2SAT 94
[2018-03-15 04:19] VITALS: PULSE 70
[2018-03-15 04:19] LABS: Anion Gap 9 (5-15); BUN 12 mg/dL (7-18); BUN/Creat Ratio 14.3 RATIO (10-20); Calcium,Total 8.2 mg/dL (8.5-10.1); Chloride 108 mmol/L (98-107); Creatinine, Serum 0.84 mg/dL (0.70-1.30); EST Glomerular Filtration Rate 93 mL/min (>60); Est Glom Filt Rate - Afr Amer 112 mL/min (>60); Estimated Creatinine Clearance 61.99 ml/min; Glucose 107 mg/dL (74-106); Potassium 3.8 mmol/L (3.5-5.1); Sodium Level 141 mmol/L (136-145)
[2018-03-15 04:21] LABS: Absolute Lymphocyte Count 1.13 X10^3/ul (0.83-4.51); Absolute Neutrophil Count 6.3 X10^3/uL (2.0-7.7); Basophil# 0.01 X10^3/uL; Basophil% 0.1 % (0-1); Eosinophil# 0.07 X10^3/uL; Eosinophils% 0.8 % (0-5); Hematocrit 40.9 % (40-54); Hemoglobin 13.8 g/dl (13.0-16.5); Lymphocyte # 1.13 X10^3/ul (4.0); Lymphocyte % 13.4 % (19-41); Mean Corp Hgb Conc 33.7 g/gl (32-36); Mean Corpuscular Hgb 31.7 pg (27.0-32.0); Mean Platelet Vol. 10.7 fl (6.2-12.0); Monocyte# 0.89 X10^3/uL; Monocyte% 10.6 % (0-10); Neutrophil % 74.9 % (47-70); Platelet Count 208 K/mm3 (150-450); RBC Distribution Width CV 13.7 % (11.6-14.6); RBC Distribution Width SD 45.3 fl (35.1-43.9); Red Blood Count 4.35 M/mm3 (4.6-6.2); White Blood Count 8.4 K/mm3 (4.4-11.0)
[2018-03-15 04:22] LABS: POSITIVE COUNT NO; POSITIVE DIFFERENTIAL NO; POSITIVE MORPHOLOGY NO
[2018-03-15 04:26] LABS: International Normalized Ratio 1.1; Prothrombin Time (Protime)PT. 14.2 SECONDS (11.7-14.9)
--- NOTE | 2018-03-15 05:55 | EKG12_ITS ---
Test Reason : AM EKG Blood Pressure : / mmHG Vent. Rate : 080 BPM Atrial Rate : 416 BPM P-R Int : 000 ms QRS Dur : 094 ms QT Int : 386 ms P-R-T Axes : 000 -20 108 degrees QTc Int : 445 ms Atrial fibrillation Possible Lateral infarct , age undetermined Inferior infarct , age undetermined Abnormal ECG When compared with ECG of 14-MAR-2018 07:00, MANUAL COMPARISON REQUIRED, DATA IS UNCONFIRMED Confirmed by RUPESH SANDHU, LUKE ([id number]), industrial editor RAHEEM TRUJILLO ([id number] on 03/18/2018 9:51:13 AM Referred By: DR ACOSTA Confirmed By:LUKE GODDARD MD
--- NOTE | 2018-03-15 06:18 | PN.SURG_ITS ---
Patient Problems: Active and Suspected Problems (Last Reviewed 03/14/18 @ 12:50 by Behzad Tejada MD) Afib (Acute) Subjective: Alert, anxious about today's stress test, no discomfort - Physical Exam Vital Signs Temp Pulse Resp BP Pulse Ox 98.6 F 70 16 123/73 H 94 03/15/18 04:00 03/15/18 04:19 03/15/18 04:00 03/15/18 04:00 03/15/18 04:00 Oxygen Flow Rate (L/min) 2 Oxygen Delivery Method Room Air Weight: 145 lb Body Mass Index (BMI) 22.0 Intake and Output for Last 24 Hours 03/13/18 03/14/18 03/15/18 23:59 23:59 23:59 Intake Total 1325 / 1325 490 / 490 Balance 1325 / 1325 490 / 490 Laboratory Tests Past 24 Hrs 03/14/18 03/14/18 03/14/18 08:12 08:12 08:12 WBC 6.5 RBC 4.66 Hgb 14.4 Hct 43.8 MCV 94.0 MCH 30.9 MCHC 32.9 RDW 13.8 RDW Differential 47.3 H Plt Count 200 MPV 11.0 Immature Gran % (Auto) 0.300 Neut % (Auto) 80.1 H Lymph % (Auto) 11.5 L [place] % (Auto) 6.9 Eos % (Auto) 0.9 Baso % (Auto) 0.3 Absolute Neuts (auto) 5.2 Absolute Lymphs (auto) 0.75 L Total Counted Not Reportable PT INR APTT D-Dimer Quant (PE/DVT) Sodium 141 Potassium 4.4 Chloride 107 Carbon Dioxide 24.0 Anion Gap 10 BUN 14 Creatinine 0.91 Estim Creat Clear Calc 58.80 Est GFR (MDRD) Af Amer 102 Est GFR (MDRD) Non-Af 85 BUN/Creatinine Ratio 15.4 Glucose 143 H Calcium 8.4 L Magnesium Total Bilirubin 1.20 H Direct Bilirubin 0.11 AST 30 ALT 15 L Alkaline Phosphatase 52 Troponin I < 0.015 B-Natriuretic Peptide Total Protein 6.9 Albumin 3.4 Globulin 3.5 TSH 3.44 03/14/18 03/14/18 03/14/18 08:12 08:12 08:12 WBC RBC Hgb Hct MCV MCH MCHC RDW RDW Differential Plt Count MPV Immature Gran % (Auto) Neut % (Auto) Lymph % (Auto) [place] % (Auto) Eos % (Auto) Baso % (Auto) Absolute Neuts (auto) Absolute Lymphs (auto) Total Counted PT INR APTT D-Dimer Quant (PE/DVT) < 0.27 L Sodium Potassium Chloride Carbon Dioxide Anion Gap BUN Creatinine Estim Creat Clear Calc Est GFR (MDRD) Af Amer Est GFR (MDRD) Non-Af BUN/Creatinine Ratio Glucose Calcium Magnesium 1.9 Total Bilirubin Direct Bilirubin AST ALT Alkaline Phosphatase Troponin I B-Natriuretic Peptide 77.2 Total Protein Albumin Globulin [facility] 03/14/18 03/14/18 03/15/18 11:20 14:35 03:58 WBC 8.4 RBC 4.35 L Hgb 13.8 Hct 40.9 MCV 94.0 MCH 31.7 MCHC 33.7 RDW 13.7 RDW Differential 45.3 H Plt Count 208 MPV 10.7 Immature Gran % (Auto) 0.200 Neut % (Auto) 74.9 H Lymph % (Auto) 13.4 L [place] % (Auto) 10.6 H Eos % (Auto) 0.8 Baso % (Auto) 0.1 Absolute Neuts (auto) 6.3 Absolute Lymphs (auto) 1.13 Total Counted Not Reportable PT INR APTT D-Dimer Quant (PE/DVT) Sodium Potassium Chloride Carbon Dioxide Anion Gap BUN Creatinine Estim Creat Clear Calc Est GFR (MDRD) Af Amer Est GFR (MDRD) Non-Af BUN/Creatinine Ratio Glucose Calcium Magnesium Total Bilirubin Direct Bilirubin AST ALT Alkaline Phosphatase Troponin I < 0.015 < 0.015 B-Natriuretic Peptide Total Protein Albumin Globulin [facility] 03/15/18 03/15/18 03:58 03:58 WBC RBC Hgb Hct MCV MCH MCHC RDW RDW Differential Plt Count MPV Immature Gran % (Auto) Neut % (Auto) Lymph % (Auto) [place] % (Auto) Eos % (Auto) Baso % (Auto) Absolute Neuts (auto) Absolute Lymphs (auto) Total Counted PT 14.2 INR 1.1 APTT 28.0 D-Dimer Quant (PE/DVT) Sodium 141 Potassium 3.8 Chloride 108 H Carbon Dioxide 24.0 Anion Gap 9 BUN 12 Creatinine 0.84 Estim Creat Clear Calc 61.99 Est GFR (MDRD) Af Amer 112 Est GFR (MDRD) Non-Af 93 BUN/Creatinine Ratio 14.3 Glucose 107 H Calcium 8.2 L Magnesium Total Bilirubin Direct Bilirubin AST ALT Alkaline Phosphatase Troponin I B-Natriuretic Peptide Total Protein Albumin Globulin TSH Medical Necessity - Tobacco Use Smoking Status: Former smoker Assessment/Plan All Active Problems (Last Reviewed 03/14/18 @ 12:50 by Behzad Tejada MD) Afib (Acute) Displaced segmental fracture of shaft of radius, right arm, initial encounter for closed fracture (Acute) Pt for stress test today Note recommendations for anticoagulation for Afib however he is scheduled for a laparoscopic left inguinal hernia repair on Sunday so hopefully this can hold off till post operatively I appreciate all the assistance in this patient's care
--- NOTE | 2018-03-15 09:10 | NURSING ---
return from stress test
[2018-03-15 09:32] VITALS: BP 114/73; PULSE 75; RESP 16; TEMP 36.4; O2SAT 92
--- NOTE | 2018-03-15 09:59 | STRESSREP ---
Stress Test Report Pharmacologic myocardial perfusion stress test. 82-year-old male with a history of atrial fibrillation. Stress protocol: Resting EKG demonstrates atrial fibrillation with a rate of 98 bpm. 0.4 mg of regadenoson was infused per usual protocol followed by rapid intravenous saline flush injection continuous EKG monitoring was performed. Patient maintained atrial fibrillation throughout the recording. The maximum heart rate attained was 115 bpm which was 83% of maximum predicted heart rate the maximum workload was 1 metabolic equivalent. At rest there were no ST or T wave changes noted suggest abnormal flow reserve at peak infusion no ST or T wave changes were noted suggest abnormal flow reserve. The resting blood pressure was 126/78 with a final blood pressure 120/72 mmHg. Myocardial perfusion protocol. 11.3 mCi of technetium 99m sestamibi was injected at rest. 0.4 mg of regadenoson was infused per usual protocol peak infusion 33.5 mCi of technetium 99m sestamibi was injected stress images were obtained stress and rest images were reconstructed and compared in the short axis vertical long and horizontal long axis. Gated images were also obtained The fusion SPECT analysis: Review of the stress images demonstrate normal uptake of tracer noted in the septum anterior wall and anterolateral wall. There is a medium-sized perfusion defect involving the mid inferior wall and the inferior apical wall and inferolateral wall. This is present on the stress and rest images to a similar extent. The above is suggestive of a previous inferior, inferior apical and inferolateral infarct. No ischemia is noted. Gated SPECT analysis: The gated ejection fraction is noted to be 62%. Conclusion: Myocardial perfusion stress test with no evidence of ischemia. Mid inferior, inferior apical, inferolateral infarct noted.
--- NOTE | 2018-03-15 10:02 | PCM.PN.CARD ---
Subjectve: Patient seen and evaluated. No complaints overnight. Objective: Vital Signs Temp Pulse Resp BP Pulse Ox 97.6 F L 75 16 114/73 92 03/15/18 09:32 03/15/18 09:32 03/15/18 09:32 03/15/18 09:32 03/15/18 09:32 Oxygen Flow Rate (L/min) 2 Oxygen Delivery Method Room Air Weight: 145 lb Body Mass Index (BMI) 22.0 Intake and Output for Last 24 Hours 03/13/18 03/14/18 03/15/18 23:59 23:59 23:59 Intake Total 1325 / 1325 490 / 490 Balance 1325 / 1325 490 / 490 General: Awake, Alert, Oriented x 3 HEENT: PERRL, EOMI, Sclera Non Icteric Neck: Supple, Good ROM, No Lymph Node Enlargement Lungs: Clear to auscultation Cardiovascular: Irregular Rhythm, Normal S1, Normal S2, No Murmurs, No Rubs, No Gallops Vascular: No Carotid Bruits, Normal Femoral Pulses, Normal Radial Pulses, Normal Dorsalis Pedal Pulse, Normal Posterior Tibial Pulses Abdomen: Bowel Sounds Present, Soft, Non Tender, No HSM, No Organomegaly Extremities: No Cyanosis, No Clubbing, No edema Neurological: No Focal Motor or Sensory Deficit 03/14/18 08:12: B-Natriuretic Peptide 77.2 03/14/18 11:20: Troponin I < 0.015 03/14/18 14:35: Troponin I < 0.015 03/15/18 03:58: WBC 8.4, RBC 4.35 L, Hgb 13.8, Hct 40.9, MCV 94.0, MCH 31.7, MCHC 33.7, RDW 13.7, RDW Differential 45.3 H, Plt Count 208, MPV 10.7, Immature Gran % (Auto) 0.200, Neut % (Auto) 74.9 H, Lymph % (Auto) 13.4 L, [place] % (Auto) 10.6 H, Eos % (Auto) 0.8, Baso % (Auto) 0.1, Absolute Neuts (auto) 6.3, Total Counted Not Reportable 03/15/18 03:58: PT 14.2, INR 1.1, APTT 28.0 01/18/19 03:58: Sodium 141, Potassium 3.8, Chloride 108 H, Carbon Dioxide 24.0, Anion Gap 9, BUN 12, Creatinine 0.84, Est GFR (MDRD) Af Amer 112, Est GFR (MDRD) Non-Af 93, BUN/Creatinine Ratio 14.3, Glucose 107 H, Calcium 8.2 L Rhythm: EKG: ECHO: Stress Test: Cardiac Cath: PCI: CT Surgery: Holter monitor: EPS: PPM: CXR: Chest CT Scan: Medical Necessity - Tobacco Use Smoking Status: Former smoker Assessment/Plan 1. Atrial fibrillation Patient presents with atrial fibrillation which is detected during the colonoscopy. The patient is asymptomatic. Previous electrocardiograms from 2016 demonstrated that the patient was noted to be atrial fibrillation. The above as well as the controlled ventricular response rate suggest that the patient has chronic persistent atrial fibrillation and that this was not a new finding. His echocardiogram corroborates mild atrial enlargement suggesting chronicity of the above. He appears to have a chads vasc score of 2 and my recommendation would be for us to put him on rivaroxaban 15 mg a day if he is not scheduled to undergo any further invasive testing. The stress test today demonstrated evidence of previous inferior infarct which is also evident on his EKG. No ischemia is noted. With his preserved ejection fraction I would not suggest any further testing. Anticoagulation can be held until after his hernia surgery. From my standpoint he is stable to be discharged. Thank you for allowing me to participate in the care of your patient. Please don't hesitate to call if any issues arise
--- NOTE | 2018-03-15 10:05 | PN.CARD_ITS ---
Subjectve: Patient seen and evaluated. No complaints overnight. Objective: Vital Signs Temp Pulse Resp BP Pulse Ox 97.6 F L 75 16 114/73 92 03/15/18 09:32 03/15/18 09:32 03/15/18 09:32 03/15/18 09:32 03/15/18 09:32 Oxygen Flow Rate (L/min) 2 Oxygen Delivery Method Room Air Weight: 145 lb Body Mass Index (BMI) 22.0 Intake and Output for Last 24 Hours 03/13/18 03/14/18 03/15/18 23:59 23:59 23:59 Intake Total 1325 / 1325 490 / 490 Balance 1325 / 1325 490 / 490 General: Awake, Alert, Oriented x 3 HEENT: PERRL, EOMI, Sclera Non Icteric Neck: Supple, Good ROM, No Lymph Node Enlargement Lungs: Clear to auscultation Cardiovascular: Irregular Rhythm, Normal S1, Normal S2, No Murmurs, No Rubs, No Gallops Vascular: No Carotid Bruits, Normal Femoral Pulses, Normal Radial Pulses, Normal Dorsalis Pedal Pulse, Normal Posterior Tibial Pulses Abdomen: Bowel Sounds Present, Soft, Non Tender, No HSM, No Organomegaly Extremities: No Cyanosis, No Clubbing, No edema Neurological: No Focal Motor or Sensory Deficit 03/14/18 08:12: B-Natriuretic Peptide 77.2 03/14/18 11:20: Troponin I < 0.015 03/14/18 14:35: Troponin I < 0.015 03/15/18 03:58: WBC 8.4, RBC 4.35 L, Hgb 13.8, Hct 40.9, MCV 94.0, MCH 31.7, MCHC 33.7, RDW 13.7, RDW Differential 45.3 H, Plt Count 208, MPV 10.7, Immature Gran % (Auto) 0.200, Neut % (Auto) 74.9 H, Lymph % (Auto) 13.4 L, [place] % (Auto) 10.6 H, Eos % (Auto) 0.8, Baso % (Auto) 0.1, Absolute Neuts (auto) 6.3, Total Counted Not Reportable 03/15/18 03:58: PT 14.2, INR 1.1, APTT 28.0 01/18/19 03:58: Sodium 141, Potassium 3.8, Chloride 108 H, Carbon Dioxide 24.0, Anion Gap 9, BUN 12, Creatinine 0.84, Est GFR (MDRD) Af Amer 112, Est GFR (MDRD) Non-Af 93, BUN/Creatinine Ratio 14.3, Glucose 107 H, Calcium 8.2 L Rhythm: EKG: ECHO: Stress Test: Cardiac Cath: PCI: CT Surgery: Holter monitor: EPS: PPM: CXR: Chest CT Scan: Medical Necessity - Tobacco Use Smoking Status: Former smoker Assessment/Plan 1. Atrial fibrillation * Patient presents with atrial fibrillation which is detected during the colonoscopy. The patient is asymptomatic. Previous electrocardiograms from 2016 demonstrated that the patient was noted to be atrial fibrillation. The above as well as the controlled ventricular response rate suggest that the patient has chronic persistent atrial fibrillation and that this was not a new finding. * His echocardiogram corroborates mild atrial enlargement suggesting chronicity of the above. * He appears to have a chads vasc score of 2 and my recommendation would be for us to put him on rivaroxaban 15 mg a day if he is not scheduled to undergo any further invasive testing. * * * The stress test today demonstrated evidence of previous inferior infarct which is also evident on his EKG. No ischemia is noted. * With his preserved ejection fraction I would not suggest any further testing. * * Anticoagulation can be held until after his hernia surgery. * From my standpoint he is stable to be discharged. * Thank you for allowing me to participate in the care of your patient. Please don't hesitate to call if any issues arise
[2018-03-15] MEDS: Enoxaparin 40 MG/0.4 ML Syringe SC (10:18)
--- NOTE | 2018-03-15 10:46 | PCM.DC ---
- Discharge Diagnoses Current Active Problems: Current Active and Chronic Problems (Last Reviewed 03/14/18 @ 12:50 by Behzad Tejada MD) Flutter-fibrillation (Chronic) Myocardial infarction (Chronic) Afib (Acute) You will use the following diet at home:: No restrictions Allergies/Adverse Reactions: Allergies Penicillins Allergy (Verified 03/14/18 08:13) Unknown- been 30yrs ago Sulfa (Sulfonamide Antibiotics) Allergy (Verified 03/14/18 08:13) Unknown-been 30yrs ago Medications to take at Discharge tamsulosin 0.4 mg capsule 0.4 mg PO DAILY #30 cap 03/12/18 Apixaban [Eliquis] 2.5 mg PO BID #60 tablet 03/15/18 The following prescriptions were given: Apixaban [Eliquis] 2.5 mg PO BID #60 tablet Primary Care Physician: Pavan Rossi III, MD [Primary Care Provider] - Test Results: Test results from this visit will be discussed in further detail at your follow-up appointment, if applicable. Proposed Discharge Date: 03/15/18
--- NOTE | 2018-03-15 10:49 | DCINST_ITS ---
- Discharge Diagnoses Current Active Problems: Current Active and Chronic Problems (Last Reviewed 03/14/18 @ 12:50 by Behzad Tejada MD) Flutter-fibrillation (Chronic) Myocardial infarction (Chronic) Afib (Acute) You will use the following diet at home:: No restrictions Allergies/Adverse Reactions: Allergies Penicillins Allergy (Verified 03/14/18 08:13) Unknown- been 30yrs ago Sulfa (Sulfonamide Antibiotics) Allergy (Verified 03/14/18 08:13) Unknown-been 30yrs ago Medications to take at Discharge tamsulosin 0.4 mg capsule 0.4 mg PO DAILY #30 cap 03/12/18 Apixaban [Eliquis] 2.5 mg PO BID #60 tablet 03/15/18 The following prescriptions were given: Apixaban [Eliquis] 2.5 mg PO BID #60 tablet Primary Care Physician: Pavan Rossi III, MD [Primary Care Provider] - Test Results: Test results from this visit will be discussed in further detail at your follow- up appointment, if applicable. Proposed Discharge Date: 03/15/18
--- NOTE | 2018-03-15 10:49 | PCM.DC.SUM ---
Discharge Date and Diagnosis - Problem List Patient Problems: Active and Suspected Problems (Last Reviewed 03/14/18 @ 12:50 by Behzad Tejada MD) Afib (Acute) Date of Admission: 03/14/18 Date of Discharge: 03/15/18 - Primary Discharge Diagnosis Active and Suspected Problems (Last Reviewed 03/14/18 @ 12:50 by Behzad Tejada MD) Afib (Acute) - Secondary Discharge Diagnosis Chronic Problems (Last Reviewed 03/14/18 @ 12:50 by Behzad Tejada MD) Flutter-fibrillation (Chronic) Myocardial infarction (Chronic) Screening for intestinal cancer (Chronic) Kidney cysts (Chronic) Prostate enlargement (Chronic) Gallstones (Chronic) Left inguinal hernia (Chronic) Displaced fracture of shaft of right ulna (Chronic) Hospital Course and Treatment Imaging Results: 03/15/18 05:55 Nuclear Stress Test - Chemical [NM] AM (NON MEDS) Operations: - - ORIF right radius and ulnar fracturs. Summary of Care Provided: Patient is an 82-year-old gentleman discovered A. fib following colonoscopy 1. A. fib possibly paroxysmal in nature given patient previous diagnosis of A. fib. Patient has been admitted to a monitored bed for continuous telemetry monitoring. As part of his evaluation ordered a TSH d-dimer 2D echo (to rule out structural heart disease) as well as a nuclear stress test on 03/15/2018 to rule out ischemia. Consultation placed to cardiology. Dr Benitez's notes and recommendations reviewed. Patient age places him at the [id number] 2 score of at least 2 and will therefore require systemic anticoagulation to prevent strokes however in view of his scheduled left inguinal herniorrhaphy initiation of systemic anticoagulation was placed on hold. Prescription was written for patient for Eliquis 2.5 mg p.o. twice daily to be started following his procedure. Patient's 2D echo demonstrated normal left ventricular function with an ejection fraction of 55%. His nuclear stress test was negative for stress-induced ischemia. 2. Left inguinal herniorrhaphy scheduled to undergo repair on 03/18/2018 3. Generalized osteoarthritis 5. Remote history of [place] in 1979 patient did not undergo any intervention 4. DVT prophylaxis SC Lovenox Patient Problems: Active and Suspected Problems (Last Reviewed 03/14/18 @ 12:50 by Behzad Tejada MD) Afib (Acute) Objective: GENERAL: cooperative HEENT: Atraumatic; moist oral mucosa EYES; Anicteric, Normal Conjunctiva NECK; supple, normal thyroid, RESPIRATORY: Diminished to auscultation bilaterally, CARDIOVASCULAR: Irregular S1 S2, GI: soft, non-tender, normoactive bowel sounds, : No Renal angle tenderness; EXTREMITIES: No edema, no clubbing, no cyanosis. MUSCULOSKELETAL: No Joint Tenderness; NEURO: Awake; no lateralizing signs. SKIN: No Rash PSYCH; Normal affect - Physical Exam Vital Signs Temp Pulse Resp BP Pulse Ox 97.6 F L 75 16 114/73 92 03/15/18 09:32 03/15/18 09:32 03/15/18 09:32 03/15/18 09:32 03/15/18 09:32 Oxygen Flow Rate (L/min) 2 Oxygen Delivery Method Room Air Weight: 65.771 kg Body Mass Index (BMI) 22.0 Intake and Output for Last 24 Hours 03/13/18 03/14/18 03/15/18 23:59 23:59 23:59 Intake Total 1325 / 1325 490 / 490 Balance 1325 / 1325 490 / 490 Laboratory Tests Past 24 Hrs 03/14/18 03/14/18 03/15/18 11:20 14:35 03:58 WBC 8.4 RBC 4.35 L Hgb 13.8 Hct 40.9 MCV 94.0 MCH 31.7 MCHC 33.7 RDW 13.7 RDW Differential 45.3 H Plt Count 208 MPV 10.7 Immature Gran % (Auto) 0.200 Neut % (Auto) 74.9 H Lymph % (Auto) 13.4 L [place] % (Auto) 10.6 H Eos % (Auto) 0.8 Baso % (Auto) 0.1 Absolute Neuts (auto) 6.3 Absolute Lymphs (auto) 1.13 Total Counted Not Reportable PT INR APTT Sodium Potassium Chloride Carbon Dioxide Anion Gap BUN Creatinine Estim Creat Clear Calc Est GFR (MDRD) Af Amer Est GFR (MDRD) Non-Af BUN/Creatinine Ratio Glucose Calcium Troponin I < 0.015 < 0.015 03/15/18 03/15/18 03:58 03:58 WBC RBC Hgb Hct MCV MCH MCHC RDW RDW Differential Plt Count MPV Immature Gran % (Auto) Neut % (Auto) Lymph % (Auto) [place] % (Auto) Eos % (Auto) Baso % (Auto) Absolute Neuts (auto) Absolute Lymphs (auto) Total Counted PT 14.2 INR 1.1 APTT 28.0 Sodium 141 Potassium 3.8 Chloride 108 H Carbon Dioxide 24.0 Anion Gap 9 BUN 12 Creatinine 0.84 Estim Creat Clear Calc 61.99 Est GFR (MDRD) Af Amer 112 Est GFR (MDRD) Non-Af 93 BUN/Creatinine Ratio 14.3 Glucose 107 H Calcium 8.2 L Troponin I Discharge Diet: No Restrictions Home Medications: Medications to take at Discharge tamsulosin 0.4 mg capsule 0.4 mg PO DAILY #30 cap 03/12/18 Apixaban [Eliquis] 2.5 mg PO BID #60 tablet 03/15/18 Following Prescrptions Were Given to Patient: Apixaban [Eliquis] 2.5 mg PO BID #60 tablet Primary Care Physician: Pavan Rossi III, MD [Primary Care Provider] - Disposition: Home Minutes spent on discharge:: 35 Patient Condition:: Stable Medical Necessity - Tobacco Use Smoking Status: Former smoker Meaningful Use Info Meaningful Use Diagnoses (Choose all that apply): None applicable Code Visit OBSV E&M: 40096 Observation care discharge
--- NOTE | 2018-03-15 10:56 | DS.PCM_ITS ---
Discharge Date and Diagnosis - Problem List Patient Problems: Active and Suspected Problems (Last Reviewed 03/14/18 @ 12:50 by Behzad Tejada MD) Afib (Acute) Date of Admission: 03/14/18 Date of Discharge: 03/15/18 - Primary Discharge Diagnosis Active and Suspected Problems (Last Reviewed 03/14/18 @ 12:50 by Behzad Tejada MD) Afib (Acute) - Secondary Discharge Diagnosis Chronic Problems (Last Reviewed 03/14/18 @ 12:50 by Behzad Tejada MD) Flutter-fibrillation (Chronic) Myocardial infarction (Chronic) Screening for intestinal cancer (Chronic) Kidney cysts (Chronic) Prostate enlargement (Chronic) Gallstones (Chronic) Left inguinal hernia (Chronic) Displaced fracture of shaft of right ulna (Chronic) Hospital Course and Treatment Imaging Results: 03/15/18 05:55 Nuclear Stress Test - Chemical [NM] AM (NON MEDS) Operations: - - ORIF right radius and ulnar fracturs. Summary of Care Provided: Patient is an 82-year-old gentleman discovered A. fib following colonoscopy 1. A. fib possibly paroxysmal in nature given patient previous diagnosis of A. fib. Patient has been admitted to a monitored bed for continuous telemetry monitoring. As part of his evaluation ordered a TSH d-dimer 2D echo (to rule out structural heart disease) as well as a nuclear stress test on 03/15/2018 to rule out ischemia. Consultation placed to cardiology. Dr Benitez's notes and recommendations reviewed. Patient age places him at the [id number] 2 score of at least 2 and will therefore require systemic anticoagulation to prevent strokes however in view of his scheduled left inguinal herniorrhaphy initiation of systemic anticoagulation was placed on hold. Prescription was written for patient for Eliquis 2.5 mg p.o. twice daily to be started following his procedure. Patient's 2D echo demonstrated normal left ventricular function with an ejection fraction of 55%. His nuclear stress test was negative for stress- induced ischemia. 2. Left inguinal herniorrhaphy scheduled to undergo repair on 03/18/2018 3. Generalized osteoarthritis 5. Remote history of [place] in 1979 patient did not undergo any intervention 4. DVT prophylaxis SC Lovenox Patient Problems: Active and Suspected Problems (Last Reviewed 03/14/18 @ 12:50 by Behzad Tejada MD) Afib (Acute) Objective: GENERAL: cooperative HEENT: Atraumatic; moist oral mucosa EYES; Anicteric, Normal Conjunctiva NECK; supple, normal thyroid, RESPIRATORY: Diminished to auscultation bilaterally, CARDIOVASCULAR: Irregular S1 S2, GI: soft, non-tender, normoactive bowel sounds, : No Renal angle tenderness; EXTREMITIES: No edema, no clubbing, no cyanosis. MUSCULOSKELETAL: No Joint Tenderness; NEURO: Awake; no lateralizing signs. SKIN: No Rash PSYCH; Normal affect - Physical Exam Vital Signs Temp Pulse Resp BP Pulse Ox 97.6 F L 75 16 114/73 92 03/15/18 09:32 03/15/18 09:32 03/15/18 09:32 03/15/18 09:32 03/15/18 09:32 Oxygen Flow Rate (L/min) 2 Oxygen Delivery Method Room Air Weight: 65.771 kg Body Mass Index (BMI) 22.0 Intake and Output for Last 24 Hours 03/13/18 03/14/18 03/15/18 23:59 23:59 23:59 Intake Total 1325 / 1325 490 / 490 Balance 1325 / 1325 490 / 490 Laboratory Tests Past 24 Hrs 03/14/18 03/14/18 03/15/18 11:20 14:35 03:58 WBC 8.4 RBC 4.35 L Hgb 13.8 Hct 40.9 MCV 94.0 MCH 31.7 MCHC 33.7 RDW 13.7 RDW Differential 45.3 H Plt Count 208 MPV 10.7 Immature Gran % (Auto) 0.200 Neut % (Auto) 74.9 H Lymph % (Auto) 13.4 L [place] % (Auto) 10.6 H Eos % (Auto) 0.8 Baso % (Auto) 0.1 Absolute Neuts (auto) 6.3 Absolute Lymphs (auto) 1.13 Total Counted Not Reportable PT INR APTT Sodium Potassium Chloride Carbon Dioxide Anion Gap BUN Creatinine Estim Creat Clear Calc Est GFR (MDRD) Af Amer Est GFR (MDRD) Non-Af BUN/Creatinine Ratio Glucose Calcium Troponin I < 0.015 < 0.015 03/15/18 03/15/18 03:58 03:58 WBC RBC Hgb Hct MCV MCH MCHC RDW RDW Differential Plt Count MPV Immature Gran % (Auto) Neut % (Auto) Lymph % (Auto) [place] % (Auto) Eos % (Auto) Baso % (Auto) Absolute Neuts (auto) Absolute Lymphs (auto) Total Counted PT 14.2 INR 1.1 APTT 28.0 Sodium 141 Potassium 3.8 Chloride 108 H Carbon Dioxide 24.0 Anion Gap 9 BUN 12 Creatinine 0.84 Estim Creat Clear Calc 61.99 Est GFR (MDRD) Af Amer 112 Est GFR (MDRD) Non-Af 93 BUN/Creatinine Ratio 14.3 Glucose 107 H Calcium 8.2 L Troponin I Discharge Diet: No Restrictions Home Medications: Medications to take at Discharge tamsulosin 0.4 mg capsule 0.4 mg PO DAILY #30 cap 03/12/18 Apixaban [Eliquis] 2.5 mg PO BID #60 tablet 03/15/18 Following Prescrptions Were Given to Patient: Apixaban [Eliquis] 2.5 mg PO BID #60 tablet Primary Care Physician: Pavan Rossi III, MD [Primary Care Provider] - Disposition: Home Minutes spent on discharge:: 35 Patient Condition:: Stable Medical Necessity - Tobacco Use Smoking Status: Former smoker Meaningful Use Info Meaningful Use Diagnoses (Choose all that apply): None applicable Code Visit OBSV E&M: 36520 Observation care discharge
[2018-03-15 12:09] VITALS: BP 114/73; PULSE 75; RESP 16; TEMP 36.4; O2SAT 92
--- OUTSIDE RECORDS SUMMARY | 2018-05-18 21:45 | XMS RPT_ITS ---
:1935 Author Organization OHIP Support Name Relationship Address Phone MARY PELLETIER Unavailable [address] [place] [address] DR + [place] [address] EMANI PAYNE Unavailable [address] + [place] [address] R Unavailable Unavailable Unavailable MARY PELLETIER Unavailable [address] [place] [address] + [place] [address] EMANI PAYNE Unavailable [address] + [place] [address] R Unavailable Unavailable Unavailable MARY PELLETIER Unavailable [address] [place] [address] DR + [place] [address] EMANI PAYNE Unavailable [address] + [place] [address] R Unavailable Unavailable Unavailable MARY PELLETIER Unavailable [address] [place] [address] DR + [place] [address] EMANI PAYNE Unavailable [address] + [place] [address] R Unavailable Unavailable Unavailable MARY PELLETIER Unavailable [address] [place] [address] DR + [place] [address] EMANI PAYNE Unavailable [address] + [place] [address] R Unavailable Unavailable Unavailable MARY PELLETIER Unavailable [address] [place] [address] DR + [place] [address] EMANI PAYNE Unavailable [address] + [place] [address] R Unavailable Unavailable Unavailable YUAN PELLETIEREN Unavailable [address] + [place] [address] FÉLIXCORTEZHILLARYARIADNESATNAM SHELTONJolene Unavailable [address] + [place] [address] R Unavailable Unavailable Unavailable MARY PELLETIER Unavailable [address] + [place] [address] JORGEAJITHSATNAMJolene Unavailable [address] + [place] [address] R Unavailable Unavailable Unavailable MARY PELLETIER Unavailable [address] + [place] [address] FÉLIXEVITASATNAMJolene Unavailable [address] + [place] [address] R Unavailable Unavailable Unavailable Care Team Providers Name Role Phone Cebul III, Pavan Primary Care Unavailable Abhijit Bateman Attending Unavailable Cebul, Ander Attending Unavailable Cebul III, Pavan Referring Unavailable Cebul, Ander Attending Unavailable Cebul, Ander Referring Unavailable Cebul III, [place] Primary Care Unavailable Cebul, Ander Attending Unavailable Cebul, Ander Referring Unavailable Cebul III, [place] Primary Care Unavailable Cebul, Ander Attending Unavailable Cebul, Ander Referring Unavailable Cebul III, [place] Primary Care Unavailable Cebul III, [place] Primary Care Unavailable KittoBehzad muro Admitting Unavailable [place], Behzad Attending Unavailable Eli, [place] Consulting Unavailable [place], Behzad Admitting Unavailable [place], Behzad Attending Unavailable Cebul III, Pavan Primary Care Unavailable KittoeBehzad Consulting Unavailable KittoeBehzad Admitting Unavailable Eli, [place] Attending Unavailable Cebul III, Pavan Primary Care Unavailable Eli, Jace Consulting Unavailable KittoeBehzad Consulting Unavailable KittoBehzad muro Admitting Unavailable [place], Behzad Attending Unavailable Cebul III, Pavan Primary Care Unavailable Eli, [place] Consulting Unavailable Behzad Acosta Consulting Unavailable PROBLEMS PROBLEMS DATE TYPE CONDITION / CODE ATTENDING STATUS SOURCE 03/12/2018 Unknown K80.20 - Calculus Ander Rossi Active [place] [facility] cholecystitis Repository without obstruction / K80.20(ICD-10) 03/12/2018 Unknown N28.89 - Other Ander Rossi Active [place] specified disorders [facility] ureter / Repository N28.89(ICD-10) 03/06/2018 Unknown R10.9 - Unspecified UngurAbhijit Active [place] abdominal pain / Community R10.9(ICD-10) Hospital Repository PROCEDURES PROCEDURES No Procedure Records FoundRESULTS RESULTS DISCHARGE INSTRUCTION Observed: 03/18/2018 Status: F Source: [place] 6:00 PM [facility] REPOSITORY [facility] Medical Records Department [address] [place] [address] Instructions for Home/Discharge Instructions 03/18/18 1042 MR#: [id number] Acct: [id number] Name: RUSS CARSON Rep #: [id number] : 1935 82 From: Ander Rossi MD PCP: Pavan Rossi III, MD Status: DEP [facility] Discharge Diet: Light diet - advance as [...] Follow Up With: Ander Rossi MD - [phone] When: Call to make an appointment to be seen in about 10 days. 03/18/18 1800 <Electronically signed by Ander Rossi MD> Date Ander Rossi MD CC: Pavan Rossi III, MD Signed OPERATIVE REPORT Observed: 03/18/2018 Status: F Source: [place] 6:00 PM [facility] REPOSITORY [facility] Medical Records Department [address] [place] [address] Operative Report 03/18/18 1143 MR#: [id number] Acct: [id number] Name: RUSS CARSON Rep #: [id number] : 1935 82 From: Ander Rossi MD PCP: Pavan Rossi III, MD Status: DEP [facility] Y Location: [facility] Problem List (1) Left inguinal hernia Status: Chronic Report of Operation Date of Procedure: 03/18/18 Pre-Operative Diagnosis: Sliding left inguinal hernia Post-Operative Diagnosis: Same Surgery/Procedure Performed:: Laparoscopic left inguinal herniorrhaphy. Bard 3 DMax mesh lot number [id number]. Reference #[id number]. Expiry date 10/23/2022. Secure strap lot number [id number]. Expiry date 11/16/2019 Description of Surgical Findings:: [...] the umbilicus approximately up to 2-0 Vicryl gdbbif-du-hpmnj suture. Skin edges approximated up to 4 [...] LEAD ELECTROCARDIOGRAM Observed: 03/18/2018 Status: F Source: [place] 9:51 AM [facility] REPOSITORY [facility] Cardiovascular Services [address] [place] [address] 12 Lead EKG 03/15/18 0515 MR#: [id number] Acct: [id number] Name: RUSS CARSON Rep #: [id number] : 1935 82 From: Jace Benitez MD Attending Dr: Behzad Acosta MD Status: DIS MIL[place] Ordering Dr: Behzad Acosta MD Date: 03/15/18 Location: [facility] Sex: M C Admitted: 03/14/18 Test Reason [...] IS UNCONFIRMED Confirmed by JACE BENITEZ MD ([id number]), purchase request editor RAHEEM TRUJILLO ([id number]) on 03/18/2018 9:51:13 AM Referred By: DR ACOSTA Confirmed By:JACE BENITEZ MD 03/18/18 0951 Date Jace Benitez MD CC: Behzad Acosta MD; Pavan Rossi III, MD Signed 12 LEAD EKG W/ Observed: 03/18/2018 Status: F Source: [place] RHYTHM STRIP 9:24 AM [facility] REPOSITORY [facility] Cardiovascular Services [address] [place] [address] 12 Lead EKG with Rhythm Strip 03/14/18 0700 MR#: [id number] Acct: [id number] Name: RUSS CARSON Rep #: [id number] : 1935 82 From: Jace Benitez MD Attending Dr: Ander Rossi MD Status: DEP [facility] Ordering Dr: Ander Rossi MD Date: 03/14/18 [...] Abnormal ECG Confirmed by JACE BENITEZ MD ([id number]), purchase request editor RAHEEM TRUJILLO ([id number]) on 03/18/2018 9:23:42 AM Referred By: Ander Rossi Confirmed By:JACE BENITEZ MD 03/18/18 0923 Date Jace Benitez MD CC: Pavan Rossi III, MD; Ander Rossi MD Signed DISCHARGE SUMMARY Observed: 03/15/2018 Status: F Source: [place] 11:14 AM [facility] REPOSITORY [facility] Medical Records Department [address] [place] [address] Discharge Summary 03/15/18 1049 MR#: [id number] Acct: [id number] Name: RUSS CARSON Rep #: [id number] : 1935 82 From: Behzad Acosta MD PCP: Pavan Rossi III, MD Status: ADM MIL[place] Y Location: [place] [address] Discharge Date and Diagnosis - Problem List [...] reviewed. Patient age places him at the [id number] 2 score of at least 2 and [...] 3. Generalized osteoarthritis 5. Remote history of OH in 1979 patient did not undergo any [...] applicable Code Visit OBSV E AND M: 30182 Observation care discharge 03/15/18 1114 <Electronically signed by Behzad Acosta MD> Date Behzad Acosta MD Cosigner Signature (if applicable): Date CC: Behzad Acosta MD; Pavan Rossi III, MD Signed DISCHARGE INSTRUCTION Observed: 03/15/2018 Status: F Source: [place] 10:49 AM [facility] REPOSITORY [facility] Medical Records Department [address] [place] [address] Instructions for Home/Discharge Instructions 03/15/18 1046 MR#: [id number] Acct: [id number] Name: RUSS CARSON Rep #: [id number] : 1935 82 From: Behzad Acosta MD [...] STRESS REPORT Observed: 03/15/2018 Status: F Source: [place] 10:02 AM [facility] REPOSITORY [facility] Cardiovascular Services [address] [place] [address] MR#: [id number] Acct: [id number] Name: RUSS CARSON Rep #: [id number] : 1935 82 From: Jace Benitez MD [...] MD Date Dictated: 03/15/18958 Date Transcribed: 03/15/18958 Metal Painter: [place] Signed BASIC METABOLIC Collected: 03/15/2018 Status: F Source: [place] PROFILE ([facility]) 3:58 AM [facility] REPOSITORY TYPE CODE TESTS RESULT OUT OF [...] Performed By: #### L500.2500, L300.3900, L300.4310 #### [facility] Laboratory [address] [place], [place], [id number] PROTHROMBIN TIME W/INR Collected: 03/15/2018 Status: F Source: [place] 3:58 AM [facility] REPOSITORY TYPE CODE TESTS RESULT OUT OF RANGE REFERENCE UNITS LAB L300.4150 11.7-14.9 SECONDS Normal PROTIME 14.2 LAB L300.4200 Normal INR 1.1 Performed By: #### L500.2500, L300.3900, L300.4310 #### [facility] [address] [place], [place], [id number] PARTIAL THROMBOPLAST Collected: 03/15/2018 Status: F Source: [place] TIME 3:58 AM [facility] REPOSITORY TYPE CODE TESTS RESULT OUT OF RANGE REFERENCE UNITS LAB L300.4310 24.1-36.2 Seconds Normal PTT 28.0 Performed By: #### L500.2500, L300.3900, L300.4310 #### [facility] [address] [facility] [place], [address] CBC W/DIFF, AUTOMATED Collected: 03/15/2018 Status: F Source: [place] 3:58 AM [facility] REPOSITORY TYPE CODE TESTS RESULT OUT OF [...] Lymph 1.13 Performed By: #### L100.0100 #### [facility] [address] [place], [address] CONSULTATION Observed: 03/14/2018 Status: F Source: [place] 5:38 PM [facility] REPOSITORY [facility] Medical Records Department [facility] [place] [address] [address] Consultation 03/14/18 1719 MR#: [id number] Acct: [id number] Name: RUSS CARSON Rep #: [id number] : 1935 82 From: Jace Benitez MD PCP: Pavan Rossi III, MD Status: ADM MILAD Y Location: [place] [address] Reason for Consult Date of Consultation: 03/14/18 Reason for Consultation: Evaluation of irregular heartbeat History of Present Illness: The patient is a 82 year old M with a past medical history significant for OH diagnosed in 1979 with no intervention, previous [...] 80.1 H, Lymph % (Auto) 11.5 L, [place] % (Auto) 6.9, Eos % (Auto) 0.9, [...] to call if any issues arise 03/14/18 4452 <Electronically signed by Jace Benitez MD> Date Jace Benitez MD Cosigner Signature (if applicable): Date CC: Jace Benitez MD; Pavan Rossi III, MD Signed TROPONIN-I Collected: 03/14/2018 Status: F Source: [place] 2:35 PM [facility] REPOSITORY Order Comment: 'TROP' Serial specimen #1, #2 or #3: 3 TYPE CODE TESTS RESULT OUT OF RANGE REFERENCE UNITS LAB L501.4010 <0.045 ng/mL Normal < 0.015 TROPONIN-I Result Comment: TROPONIN-I EXPECTED VALUES <0.045 Negative 0.045 - 0.590 Consistent with Cardiac Damage > OR = 0.600 Critical Value Not every elevated troponin is indicative of OH. These values should be used with clinical judgement in examining the patient's clinical picture for diagnosis. To establish a diagnosis of OH versus myocardial injury, there must be a demonstrated rise and/or fall in the troponin values, in addition to ischemic symptoms, EKG changes, new regional wall motion abnormality, and/or angiographical evidence. PLEASE NOTE: REFERENCE RANGES EDITED 17 Performed By: #### L501.4010 #### [facility] [address] [facility] [place], [address] ECHOCARDIOGRAM COMPLETE Observed: 03/14/2018 Status: F Source: [place] 1:50 PM [facility] REPOSITORY [facility] Cardiovascular Services [address] [place] [address] Echo Complete 03/14/18 0942 MR#: [id number] Acct: [id number] Name: RUSS CARSON Rep #: [id number] : 1935 82 From: Aristeo Dyson MD Attending Dr: Behzad Acosta MD Status: ADM MILAD Ordering Dr: Behzad Acosta MD Date: 03/14/18 Location: [facility] Sex: M C Admitted: 03/14/18 Reason For [...] PAVAN ROSSI III Performed By: Fadia Mercado [facility] 03/14/181348 Date Aristeo Dyson MD CC: Behzad Acosta MD; Pavan Rossi III, MD Date Dictated: 03/14/1842 Date Transcribed: 03/14/181348 Metal Painter: Signed HISTORY AND PHYSICAL Observed: 03/14/2018 Status: F Source: [place] EXAM 12:57 PM [facility] REPOSITORY [facility] Medical Records Department [address] [place] [address] History and Physical 03/14/18924 MR#: [id number] Acct: [id number] Name: RUSS CARSON Rep #: [id number] : 1935 82 From: Behzad Acosta MD PCP: Pavan Rossi III, MD Status: ADM MILAD Y Location: [place] [address] Problem List (1) Afib Status: Acute (2) [...] old M past medical history significant for OH diagnosed in 1979 with no intervention, previous [...] No VTE Mechan Device Prophylaxis: Knee High CHREI Hose VTE Pharm Prophylaxis ordered?: Yes Patient [...] cardiology. Patient age places him at the [id number] 2 score of at least 2 and will therefore require systemic anticoagulation to prevent strokes however in view of his scheduled left inguinal herniorrhaphy will hold off. 2. Left inguinal herniorrhaphy scheduled to undergo repair on 03/18/2018 3. Generalized osteoarthritis 5. Remote history of OH in 1979 patient did not undergo any intervention 4. DVT prophylaxis SC Lovenox Code Visit OBSV E AND M: 52490 Initial observation care L3 03/14/18 1257 <Electronically signed by Behzad Acosta MD> Date Behzad Acosta MD Cosigner Signature: Date (if applicable) CC: Behzad Acosta MD; Pavan Rossi III, MD Signed TROPONIN-I Collected: 03/14/2018 Status: F Source: [place] 11:20 AM [facility] REPOSITORY Order Comment: 'TROP' Serial specimen #1, #2 or #3: 2 TYPE CODE TESTS RESULT OUT OF RANGE REFERENCE UNITS LAB L501.4010 <0.045 ng/mL Normal < 0.015 TROPONIN-I Result Comment: TROPONIN-I EXPECTED VALUES <0.045 Negative 0.045 - 0.590 Consistent with Cardiac Damage > OR = 0.600 Critical Value Not every elevated troponin is indicative of OH. These values should be used with clinical judgement in examining the patient's clinical picture for diagnosis. To establish a diagnosis of OH versus myocardial injury, there must be a demonstrated rise and/or fall in the troponin values, in addition to ischemic symptoms, EKG changes, new regional wall motion abnormality, and/or angiographical evidence. PLEASE NOTE: REFERENCE RANGES EDITED 17 Performed By: #### L501.4010 #### [facility] [address] [facility] [place], [address] EMERGENCY DEPARTMENT Observed: 03/14/2018 Status: F Source: [place] SUMMARY 9:19 AM [facility] REPOSITORY [facility] Medical Records Department [address] [facility] [place] [address] Emergency Department Summary 03/14/18 0916 MR#: [id number] Acct: [id number] Name: RUSS CARSON Rep #: [id number] : 1935 82 From: Abhijit Bateman DO [...] fibrillation-new onset] This note was generated with Leostream dictation software. It may contain incorrect words, [...] your Primary Care Provider. Call [facility] ([phone]) or report to the closest Emergency Room. Call 911 if necessary. 03/14/18 0919 <Electronically signed by Abhijit Bateman DO> Date Abhijit Bateman DO Cosigner Signature (If Indicated): Date CC: Pavan Rossi III, MD CHEST 1 VIEW Observed: 03/14/2018 Status: F Source: [place] (PORTABLE) 8:22 AM [facility] REPOSITORY [facility] Imaging Services [facility] [place] [address] [address] Chest 1 View (Portable) MR#: [id number] Acct: [id number] Name: RUSS CARSON Rep #: [id number] : 1935 M 82 From: Gela Sheppard MD PCP: Pavan Rossi III, MD Status: REG ER Study: Chest 1 View (Portable) Date of Exam: 03/14/18 Exam# [id number] Ordering Dr: Abhijit Bateman DO STUDY: X-RAY [...] Pavan Rossi III, MD; Abhijit Bateman DO Metal Painter: Signed CBC W/DIFF, AUTOMATED Collected: 03/14/2018 Status: F Source: [place] 8:12 AM [facility] REPOSITORY TYPE CODE TESTS RESULT OUT OF [...] Lymph 0.75 Performed By: #### L100.0100 #### [facility] Laboratory [address] [place], [place] [address] [facility] [place], [address] BASIC METABOLIC Collected: 03/14/2018 Status: F Source: [place] PROFILE (BMP) 8:12 AM [facility] REPOSITORY TYPE CODE TESTS RESULT OUT OF [...] 10 Performed By: #### L500.2500, L501.4010 #### [facility] [address] [facility]. [place], [place], [address] TROPONIN-I Collected: 03/14/2018 Status: F Source: [place] 8:12 AM [facility] REPOSITORY TYPE CODE TESTS RESULT OUT OF RANGE REFERENCE UNITS LAB L501.4010 <0.045 ng/mL Normal < 0.015 TROPONIN-I Result Comment: TROPONIN-I EXPECTED VALUES <0.045 Negative 0.045 - 0.590 Consistent with Cardiac Damage > OR = 0.600 Critical Value Not every elevated troponin is indicative of OH. These values should be used with clinical judgement in examining the patient's clinical picture for diagnosis. To establish a diagnosis of OH versus myocardial injury, there must be a demonstrated rise and/or fall in the troponin values, in addition to ischemic symptoms, EKG changes, new regional wall motion abnormality, and/or angiographical evidence. PLEASE NOTE: REFERENCE RANGES EDITED 17 Performed By: #### L500.2500, L501.4010 #### [facility] [address] [place], [place], [address] D-DIMER QUANTITATIVE Collected: 03/14/2018 Status: F Source: [place] (DVT/PE) 8:12 AM [facility] REPOSITORY TYPE CODE TESTS RESULT OUT OF RANGE REFERENCE UNITS LAB L300.8000 0.27-0.49 FEU/ug/m Low D-DIMER < 0.27 QUANT Result Comment: NORMAL D-Dimer level (<0.50) indicates no DVT or PE. Performed By: #### L300.8000 #### [facility] [address] [place], [address] LIVER PROFILE Collected: 03/14/2018 Status: F Source: [place] 8:12 AM [facility] REPOSITORY TYPE CODE TESTS RESULT OUT OF [...] 0.11 Performed By: #### L500.3400, L501.9520 #### [facility] [address] [facility] [place], [address] THYROID STIM HORMONE Collected: 03/14/2018 Status: F Source: [place] (TSH) 8:12 AM [facility] REPOSITORY TYPE CODE TESTS RESULT OUT OF RANGE REFERENCE UNITS LAB L501.9520 0.358-3.74 uIU/mL Normal TSH 3.44 Performed By: #### L500.3400, L501.9520 #### [facility] [address] [place], [address] MAGNESIUM Collected: 03/14/2018 Status: F Source: [place] 8:12 AM [facility] REPOSITORY TYPE CODE TESTS RESULT OUT OF RANGE REFERENCE UNITS LAB L501.5200 1.6-2.6 mg/dL Normal MG 1.9 Result Comment: Moderate Hemolysis, Result may be falsely increased. Performed By: #### L501.5200 #### [facility] [address] [place], [address] BNP,B-TYPE NATRIURETIC Collected: 03/14/2018 Status: F Source: [place] PEPTIDE 8:12 AM [facility] REPOSITORY TYPE CODE TESTS RESULT OUT OF RANGE REFERENCE UNITS LAB L503.6620 0-100 pg/mL Normal B-TYPE 77.2 TASHA PEP Performed By: #### L503.6620 #### [facility] [address] [place], [address] ABDOMEN LIMITED Observed: 03/13/2018 Status: F Source: [place] 8:47 AM [facility] REPOSITORY [facility] Imaging Services [address] [facility] [place] [address] Abdomen Limited MR#: [id number] Acct: [id number] Name: RUSS CARSON Rep #: [id number] : 1935 M 82 From: Chilo Marrufo MD PCP: Pavan Rossi III, MD Status: REG CLI Study: Abdomen Limited Date of Exam: 03/13/18 Exam# [id number] Ordering Dr: Ander Rossi MD STUDY: ABDOMINAL [...] Pavan Rossi III, MD; Ander Rossi MD Metal Painter: Signed SURGERY VISIT REPORT Observed: 03/12/2018 Status: F Source: [place] 4:11 PM [facility] REPOSITORY [facility] [address] [place] [address]. [address] [place] [address] OFFICE VISIT Date of Service: 03/12/18 MR#: [id number] Acct: [id number] Name: RUSS CARSON Rep #: [id number] : 1935 Provider: Ander Rossi MD Age/Sex: 82/M Location: [facility] Status: Signed with Addenda ADDENDUM by Ander [...] ER FU Chief Complaint: broken right arm Cleaning Manager Required: No Is patient in pain?: [...] have a hernia. He presented to the [facility] emergency room on March 06, 2018 and attempt to facilitate management. He does not seek medical attention frequently and states that it has been multiple years since he is gone into see his primary care physician Dr. Pavan Rossi III. On March 06, [address] scan was obtained at the [facility]. This demonstrates a small hiatal hernia. Probable [...] DISCHARGE INSTRUCTION Observed: 03/06/2018 Status: F Source: [place] 9:54 PM [facility] REPOSITORY [facility] Medical Records Department [address] [place] [address] Discharge Instruction 03/06/18 2153 MR#: [id number] Acct: [id number] Name: RUSS CARSON Rep #: [id number] : 1935 82 From: Abhijit Bateman DO PCP: Pavan Rossi III, MD Status: REG ER ED Disposition - Plan for ED Patient: Chief Complaint: Abd Pain Instructions: ED Hernia Inguinal Prescriptions: Hydrocodone Bitart/Apap 5-325 [[place] 5MG-325MG] 1 tab PO Q4H PRN PRN 2 Days #14 tab PRN Reason: Pain Referrals: Pavan Rossi III, MD [Primary Care Provider] - Ander Rossi MD [STAFF PHYSICIAN] - 3-5 Days What to do if you have Problems For any increased pain, shortness of breath, bleeding, nausea or vomiting, chest pain, or any unexpected problems, contact your Primary Care Provider. Call [facility] ([phone]) or report to the closest Emergency Room. Call 911 if necessary. 03/06/182153 <Electronically signed by Abhijit Bateman DO> Date Abhijit Bateman DO Cosigner Signature (If Indicated): Date CC: Pavan Rossi III, MD EMERGENCY DEPARTMENT Observed: 03/06/2018 Status: F Source: [place] SUMMARY 9:53 PM [facility] REPOSITORY [facility] Medical Records Department [address] [place] [address] Emergency Department Summary 03/06/182149 MR#: [id number] Acct: [id number] Name: RUSS CARSON Rep #: [id number] : 1935 82 From: Abhijit Bateman DO [...] [Patient will be given a prescription for [place] for pain. Patient advised use a stool softener daily.] Disposition: [Discharged home in stable condition] Impression: [Left inguinal hernia] This note was generated with Leostream dictation software. It may contain incorrect words, [...] your Primary Care Provider. Call [facility] ([phone]) or report to the closest Emergency Room. Call 911 if necessary. 03/06/18 2153 <Electronically signed by Abhijit Bateman DO> Date Abhijit Bateman DO Cosigner Signature (If Indicated): Date CC: Pavan Rossi III, MD URINALYSIS, COMPLETE Collected: 03/06/2018 Status: F Source: [place] 7:30 PM [facility] REPOSITORY Order Comment: How was Urine Obtained? [...] URINE SEEN Performed By: #### L400.0001 #### [facility] [address] [place], [address] CBC W/DIFF, AUTOMATED Collected: 03/06/2018 Status: F Source: [place] 7:07 PM [facility] REPOSITORY TYPE CODE TESTS RESULT OUT OF [...] Lymph 1.75 Performed By: #### L100.0100 #### [facility] [address] [place], [address] BASIC METABOLIC Collected: 03/06/2018 Status: F Source: [place] PROFILE ([facility]) 7:07 PM [facility] REPOSITORY TYPE CODE TESTS RESULT OUT OF [...] GAP 9 Performed By: #### L500.2500 #### [facility] [address] [facility] [place], [address] LACTIC ACID Collected: 03/06/2018 Status: F Source: [place] 7:07 PM [facility] REPOSITORY Order Comment: Yes/No query for Sepsis Lactate Rule Y TYPE CODE TESTS RESULT OUT OF RANGE REFERENCE UNITS LAB L503.6005 0.4-2.0 mmol/L Normal LACTIC ACID 1.1 Performed By: #### L503.6005 #### [facility] [address] [place], [address] ABDOMEN/PEL W ORAL CONT Observed: 03/06/2018 Status: F Source: [place] ONLY 6:52 PM [facility] REPOSITORY [facility] Imaging Services [address] [place] [address] Abdomen/Pel W ORAL Cont Only MR#: [id number] Acct: [id number] Name: RUSS CARSON Rep #: [id number] : 1935 M 82 From: Kady Higgins MD PCP: Pavan Rossi III, MD Status: REG ER Study: Abdomen/Pel W ORAL Cont Only Date of Exam: 03/06/18 Exam# [id number] Ordering Dr: Abhijit Bateman DO STUDY: CT [...] Pavan Rossi III, MD; Abhijit Bateman DO Metal Painter: Signed CNPTOUTREACH Observed: 03/05/2018 Status: COMPLETED Source: [place] 12:00 AM [facility] REPOSITORY Patient Outreach (FAMPST) RUSS CARSON ([id number]) 1935 M Date Time Provider Department 03/05/18 PAVAN ROSSI III FAMPST During your visit today, we recorded the following information about you: Allergies As of Date: 03/05/2018 Noted Allergy Reaction LIPITOR (ATORVASTATIN CALCIUM) 03/02/2005 Comments: myalgia PENICILLINS 03/01/2005 SULFA (SULFONAMIDE ANTIBIOTICS) 03/01/2005 Date Reviewed: 12/08/2011 Reviewed by: Desiree Mirza LPN - Fully Assessed Visit Diagnosis:Medication management [Z79.899] Order(s):LIPID PANEL BASIC [SQLIPB] Order #: [id number] FUTURE Prescriptions as of 03/05/2018 Sig: ACETAMINOPHEN 300 MG-CODEINE * Take 1 tablet by mouth every * Problem List As Of Date 03/05/2018 Noted Resolved HYPERLIPIDEMIA NEC/NOS [E78.5] OSTEOARTHROS NOS-UNSPEC [M19.90] INVALID FOR* Encounter Status:Closed by [employer], PRODUSER on 03/20/18 ALLERGIES ALLERGIES DATE TYPE / CODE NAME / CODE REACTION SEVERITY SOURCE 03/15/2018 Drug Penicillins/F Unknown- been Unknown [facility] All[facility]/4160 [id number](RXN 30yrs ago [facility] [address](SNOMED ORM) Repository CT) 03/15/2018 Drug Sulfa Unknown-been Unknown [facility] Allergy/4160 (Sulfonamide 30yrs ago [place] [address](SNOMED Antibiotics)/ Repository CT) [id number](RX NORM) ENCOUNTERS ENCOUNTERS ADMIT/DISCHARGE ACCOUNT ADMITTING ENCOUNTER LOCATION SOURCE NUMBER CLASS 03/18/2018/ [id number] Ambulatory [facility] 9 1 [facility] ing:SDCRoom: Repository AC07 03/14/2018/ [id number] Behzad Acosta Ambulatory [facility] [place] 9 0 [facility] ing:PCURoom: Repository [id number]: 1 03/14/2018 [id number] Behzad Acosta Ambulatory BMSBuilding:B [place] 3 [facility] Repository 03/14/2018 [id number] Behzad Acosta Ambulatory BMSBuilding:B [place] 0 MS.[facility] Repository 03/14/2018 [id number] Behzad Acosta Ambulatory BMSBuilding:B [place] 7 MS.[facility] Repository 03/14/2018/ [id number] Ambulatory [place] 9 8 [facility] ing:EN Repository 03/13/2018 [id number] Ambulatory [place] 8 [facility] ing:US Repository 03/12/2018/ [id number] Ambulatory BMSBuilding:B [place] 9 3 [facility] Repository 03/06/2018/ [id number] Emergency [place] 9 9 [facility] ing:ED Repository PAYERS PAYERS ENCOUNTER GUARANTOR PAYER SUBSCRIBER SOURCE 03/18/2018 RUSS Hester Primary RUSS [place] [id number] [facility] [id number] 12/27/17Policy Number: Repository [id number]: 330 [id number] [phone] () Date:7815-75-12BE[address] [address]LP: 03/18/2018 Secondary NOT GIVENUNK [place] Insurance:SELF PAY [facility] Number: Effective Repository Date:2018-03-12 03/14/2018 RUSS Hester Primary RUSS Zabala [id number] [facility] : [id number], [place] 12/27/17Policy Number: Repository [id number]: 330) [id number] [phone] (HP) Date:8737-91-08JZ [address] [place] [address]TM: 03/14/2018 Secondary NOT GIVENUNK [place] Insurance:SELF PAY [facility] Number: Effective Repository Date:2018-03-14 03/14/2018 RUSS Hester Primary RUSS Zabala [id number] [facility] [id number], [place] 12/27/17Policy Number: Repository [id number]: (330 [id number] [phone] (HP) Date:8907-16-14ZJ [address] [place] [address]NU: 03/14/2018 Secondary NOT GIVENUNK [place] Insurance:SELF PAY [facility] Number: Effective Repository Date:2018-03-14 03/14/2018 RUSS W Primary RUSS Zabala [id number] [facility] : [id number], [place] 12/27/17Policy Number: Repository [id number]: (330) [id number] [phone] (HP) Date:2297-40-12DC [address] [address]YZ: 03/14/2018 Secondary NOT GIVENUNK [place] Insurance:SELF PAY [facility] Number: Effective Repository Date:2018-03-14 03/14/2018 RUSS W Primary RUSS Zabala [id number] Insurance[facility] : [id number], [place] 12/27/17Policy Number: Repository [id number]: (330) [id number] [phone] (HP) Date:3907-30-55QP [address] [address]UL: 03/14/2018 Secondary NOT GIVENUNK [place] Insurance:SELF PAY [facility] Number: Effective Repository Date:2018-03-14 03/14/2018 RUSS W Primary RUSS Zabala [id number] Insurance:[facility] [id number], [place] 12/27/17Policy Number: Repository [id number]: 330 [id number] [phone] (HP) Date:8906-12-10DA [address] [address]WT: 03/14/2018 Secondary NOT GIVENUNK [place] Insurance:SELF PAY [facility] Number: Effective Repository Date:2018-03-12 03/13/2018 RUSS W Primary RUSS Zabala [id number] Insurance:[facility] : [id number], [place] 12/27/17Policy Number: Repository [id number]: (330 [id number] [phone] (HP) Date:8320-40-99KW [address] [address]NF: 03/13/2018 Secondary NOT GIVENUNK [place] Insurance:SELF PAY [facility] Number: Effective Repository Date:2018-03-12 03/12/2018 RUSS Primary RUSS Zabala [id number] Insurance[facility] [id number], [place] 12/27/17Policy Number: Repository [id number]: (330 [id number] [phone] () Date:0578-09-55TV [address] [address]GO: 03/12/2018 Secondary NOT GIVENUNK [place] Insurance:SELF PAY [facility] Number: Effective Repository Date:2018-03-12 03/06/2018 RUSS W Primary RUSS Zabala [id number] [facility] : [id number], [place] 12/27/17Policy Number: Repository [id number]: (056) [id number] [phone] () Date:1050-14-57CV [address] [place] [address]RR: 03/06/2018 Secondary NOT GIVENUNK [place] Insurance:SELF PAY [facility] Number: Effective Repository Date:2018-03-06
== END 2018-03-15 10:48 | disposition home or self-care (01) ==
LOC: ED 08:43 → PCU 09:30
PROVIDERS: Admitting Provider Internal Medicine; Emergency Provider Emergency Medicine; Family Provider Family Medicine; PCP Family Medicine; Visit Provider Internal Medicine
DX: Z51.11 Encounter for antineoplastic chemotherapy (principal); I48.91 Unspecified atrial fibrillation; I25.2 Old myocardial infarction; N40.0 Benign prostatic hyperplasia without lower urinary tract symptoms; M15.9 Polyosteoarthritis, unspecified; K40.90 Unilateral inguinal hernia, without obstruction or gangrene, not specified as recurrent; I08.3 Combined rheumatic disorders of mitral, aortic and tricuspid valves; R94.31 Abnormal electrocardiogram [ECG] [EKG]; K57.30 Diverticulosis of large intestine without perforation or abscess without bleeding; K64.8 Other hemorrhoids; I49.2 Junctional premature depolarization; N28.1 Cyst of kidney, acquired; K80.20 Calculus of gallbladder without cholecystitis without obstruction; Z87.891 Personal history of nicotine dependence; Z79.899 Other long term (current) drug therapy; Z88.0 Allergy status to penicillin; Z88.2 Allergy status to sulfonamides
CPT/HCPCS: G0121; 36415; 71045; 78452; 80048; 80076; 83735; 83880; 84443; 84484; 85025; 85379; 85610; 85730; 93005; 93017; 93306; 96361; 96372; 96374; 99152; 99153; 99218; 99251; 99282; A9500; J7030; J7120; A4216; G0378; G0463; J2405; J2785

== ENCOUNTER 2018-03-18 07:45 | Day surgery (SDC) | payer MEDICARE, SELFPAY ==
[2018-03-12 14:33] VITALS: BMI 24.2
[2018-03-14 10:26] VITALS: BMI 22.0
[2018-03-18] VITALS (8 sets, daily range): BP systolic 108–170; BP diastolic 64–98; PULSE 68–105; RESP 16–18; TEMP 36.2–37.2; O2SAT 92–96; BMI 22.8
--- NOTE | 2018-03-18 10:42 | PCM.DC.GS ---
Discharge Diet: Light diet - advance as tolerated - if you have questions about your diet instructions, please talk to you doctor. Discharge Activity: May Not Drive - for 3-5 days or while taking narcotic pain medicine. May shower in (days): 1 Lifting Restrictions: 10 pounds Call your doctor if your incision/area has: Continuous Slow Oozing, Sudden Increased Bleeding, Increased Pain/ Swelling, Increased Redness, Foul Smelling Discharge Call your doctor if you observe: Fever of 101 or Higher Suture Line Care: Avoid Pulling/Pushing, Avoid Pinching/Bending Additional Dressing/Incision Instructions:: Change or remove dressing in 4 days. Leave steri-strips in place for 1 week. Allergies/Adverse Reactions: Allergies Penicillins Allergy (Verified 03/15/18 13:09) Unknown- been 30yrs ago Sulfa (Sulfonamide Antibiotics) Allergy (Verified 03/15/18 13:09) Unknown-been 30yrs ago Medications to take at Discharge tamsulosin 0.4 mg capsule 0.4 mg PO DAILY #30 cap 03/12/18 Primary Care Physician: Pavan Rossi III, MD [Primary Care Provider] - Test Results: Test results from this visit will be discussed in further detail at your follow-up appointment, if applicable. Please Follow Up With: Ander Rossi MD - [phone] When: Call to make an appointment to be seen in about 10 days.
--- NOTE | 2018-03-18 10:49 | DCINST_ITS ---
Discharge Diet: Light diet - advance as tolerated - if you have questions about your diet instructions, please talk to you doctor. Discharge Activity: May Not Drive - for 3-5 days or while taking narcotic pain medicine. May shower in (days): 1 Lifting Restrictions: 10 pounds Call your doctor if your incision/area has: Continuous Slow Oozing, Sudden Increased Bleeding, Increased Pain/ Swelling, Increased Redness, Foul Smelling Discharge Call your doctor if you observe: Fever of 101 or Higher Suture Line Care: Avoid Pulling/Pushing, Avoid Pinching/Bending Additional Dressing/Incision Instructions:: Change or remove dressing in 4 days. Leave steri-strips in place for 1 week. Allergies/Adverse Reactions: Allergies Penicillins Allergy (Verified 03/15/18 13:09) Unknown- been 30yrs ago Sulfa (Sulfonamide Antibiotics) Allergy (Verified 03/15/18 13:09) Unknown-been 30yrs ago Medications to take at Discharge tamsulosin 0.4 mg capsule 0.4 mg PO DAILY #30 cap 03/12/18 Primary Care Physician: Pavan Rossi III, MD [Primary Care Provider] - Test Results: Test results from this visit will be discussed in further detail at your follow- up appointment, if applicable. Please Follow Up With: Ander Rossi MD - [phone] When: Call to make an appointment to be seen in about 10 days.
[2018-03-18] MEDS: Bupivacaine Mpf 0.5% 30 ML VIAL (11:43)
--- NOTE | 2018-03-18 11:43 | PCM.OPRPT ---
Problem List (1) Left inguinal hernia Status: Chronic Report of Operation Date of Procedure: 03/18/18 Pre-Operative Diagnosis: Sliding left inguinal hernia Post-Operative Diagnosis: Same Surgery/Procedure Performed:: Laparoscopic left inguinal herniorrhaphy. Bard 3 DMax mesh lot number [employer] [id number]. Reference #[id number]. Expiry date 10/23/2022. Secure strap lot number [id number]. Expiry date 11/16/2019 Description of Surgical Findings:: Timeout and informed consent was obtained. 82-year-old gent was taken the operative placement table underwent general endotracheal intubation anesthesia. Clindamycin 900 mg were given intravenously preoperatively. The abdomen sterilely prepped and draped. 0.5% Marcaine was used as a local anesthetic. Throughout the procedure total 30 cc was used. Skin sites were pre-anesthetized. A vertical infraumbilical incision was created holding sutures of 0 Vicryl placed varies needle inserted saline drop test performed the abdomen was insufflated with CO2 to a pressure of 10 mmHg pressure. A telemeter trocar inserted. No evidence of any trocar injuries. 5-minute ports were placed in the left and right lower quadrant. Superficial inspection failed to reveal any gross abnormalities other than that with sigmoid colon sliding within the left inguinal hernia. The sigmoid colon was dissected free. A ilioinguinal nerve block was performed. The peritoneum was incised superior and medial to the internal ring and carried laterally. Then the hernia sac was completely teased free were needed hemostasis obtained with hemo-lock clips. The sac was left completely intact with no tears but was completely inverted. The direct space indirect and femoral area nicely dissected free. A Bard 3 DMax large mesh was placed so as to cover the defect area. It nicely covered the indirect area direct and femoral area. It was secured in place superior and medially with secure strap. As noted excellent positioning was achieved. The peritoneum was approximated to itself with secure strap and a single hemo-lock clip. Complete obliteration to the mesh was achieved. Trochars were removed under visualization. The abdomen was allowed to deflate his CO2. The fascia at the umbilicus approximately up to 2-0 Vicryl [id number] suture. Skin edges approximated up to 4 Monocryl subdermal stitches. Steri-Strips Telfa and OpSite dressings applied. Sponge and instrument and needle counts were reported the surgeon to be correct. Blood loss was minimal. He tolerated the procedure well and was taken to the recovery area in satisfactory condition without apparent complication. Specimens none. Drains none. Blood loss minimal. Ander Rossi M.D., F.A.C.S. Type of Anesthesia:: General Anesthesiologist: [facility] [place]
--- NOTE | 2018-03-18 11:47 | OP.PCM_ITS ---
Problem List (1) Left inguinal hernia Status: Chronic Report of Operation Date of Procedure: 03/18/18 Pre-Operative Diagnosis: Sliding left inguinal hernia Post-Operative Diagnosis: Same Surgery/Procedure Performed:: Laparoscopic left inguinal herniorrhaphy. Bard 3 DMax mesh lot number [employer] [id number]. Reference #[id number]. Expiry date 10/23/2022. Secure strap lot number [id number]. Expiry date 11/16/2019 Description of Surgical Findings:: Timeout and informed consent was obtained. 82-year-old gent was taken the operative placement table underwent general endotracheal intubation anesthesia. Clindamycin 900 mg were given intravenously preoperatively. The abdomen sterilely prepped and draped. 0.5% Marcaine was used as a local anesthetic. Throughout the procedure total 30 cc was used. Skin sites were pre- anesthetized. A vertical infraumbilical incision was created holding sutures of 0 Vicryl placed varies needle inserted saline drop test performed the abdomen was insufflated with CO2 to a pressure of 10 mmHg pressure. A telemeter trocar inserted. No evidence of any trocar injuries. 5-minute ports were placed in the left and right lower quadrant. Superficial inspection failed to reveal any gross abnormalities other than that with sigmoid colon sliding within the left inguinal hernia. The sigmoid colon was dissected free. A ilioinguinal nerve block was performed. The peritoneum was incised superior and medial to the internal ring and carried laterally. Then the hernia sac was completely teased free were needed hemostasis obtained with hemo-lock clips. The sac was left completely intact with no tears but was completely inverted. The direct space indirect and femoral area nicely dissected free. A Bard 3 DMax large mesh was placed so as to cover the defect area. It nicely covered the indirect area direct and femoral area. It was secured in place superior and medially with secure strap. As noted excellent positioning was achieved. The peritoneum was approximated to itself with secure strap and a single hemo-lock clip. Complete obliteration to the mesh was achieved. Trochars were removed under visualization. The abdomen was allowed to deflate his CO2. The fascia at the umbilicus approximately up to 2-0 Vicryl [id number] suture. Skin edges approximated up to 4 Monocryl subdermal stitches. Steri-Strips Telfa and OpSite dressings applied. Sponge and instrument and needle counts were reported the surgeon to be correct. Blood loss was minimal. He tolerated the procedure well and was taken to the recovery area in satisfactory condition without apparent complication. Specimens none. Drains none. Blood loss minimal. Ander Rossi M.D., F.A.C.S. Type of Anesthesia:: General Anesthesiologist: Charles Bush
--- OUTSIDE RECORDS SUMMARY | 2018-05-20 15:14 | XMS RPT_ITS ---
:1935 Author Organization OHIP Support Name Relationship Address Phone MARY PELLETIER Unavailable [address] [place] [address] DR + [place] [address] EMANI PAYNE Unavailable [address] + [place] [address] R Unavailable Unavailable Unavailable MARY PELLETIER Unavailable [address] [place] [address] + [place] [address] EMANI PAYNE Unavailable [address] + [place] [address] R Unavailable Unavailable Unavailable MARY PELLETIER Unavailable [address] [place] [address] DR + [place] [address] EMANI PAYNE Unavailable [address] + [place] [address] R Unavailable Unavailable Unavailable MARY PELLETIER Unavailable [address] [place] [address] DR + [place] [address] EMANI PAYNE Unavailable [address] + [place] [address] R Unavailable Unavailable Unavailable MARY PELLETIER Unavailable [address] [place] [address] DR + [place] [address] EMANI PAYNE Unavailable [address] + [place] [address] R Unavailable Unavailable Unavailable MARY PELLETIER Unavailable [address] [place] [address] DR + [place] [address] EMANI PAYNE Unavailable [address] + [place] [address] R Unavailable Unavailable Unavailable YUAN PELLETIEREN Unavailable [address] + [place] [address] FÉLIXCORTEZHILLARYARIADNESATNAM SHELTONJolene Unavailable [address] + [place] [address] R Unavailable Unavailable Unavailable MARY PELLETIER Unavailable [address] + [place] [address] JORGEAJITHSATNAMJolene Unavailable [address] + [place] [address] R Unavailable Unavailable Unavailable MARY PELLETIER Unavailable [address] + [place] [address] FÉLIXEVITASATNAMJolene Unavailable [address] + [place] [address] R Unavailable Unavailable Unavailable Care Team Providers Name Role Phone Cebul III, Pavan Primary Care Unavailable Abhijit Bateman Attending Unavailable Cebul, Ander Attending Unavailable Cebul III, Pavan Referring Unavailable Cebul, Ander Attending Unavailable Cebul, Ander Referring Unavailable Cebul III, [place] Primary Care Unavailable Cebul, Ander Attending Unavailable Cebul, Ander Referring Unavailable Cebul III, [place] Primary Care Unavailable Cebul, Ander Attending Unavailable Cebul, Ander Referring Unavailable Cebul III, [place] Primary Care Unavailable Cebul III, [place] Primary Care Unavailable [place]hzad muro Admitting Unavailable [place], Behzad Attending Unavailable Eli, Machias Consulting Unavailable [place], Behzad Admitting Unavailable [place], Behzad Attending Unavailable Cebul III, Pavan Primary Care Unavailable [place]ad Consulting Unavailable [place]ad Admitting Unavailable Eli, Machias Attending Unavailable Cebul III, Pavan Primary Care Unavailable Eli, Jace Consulting Unavailable [place]zad Consulting Unavailable [place]zad muro Admitting Unavailable [place], Behzad Attending Unavailable Cebul III, Pavan Primary Care Unavailable Eli, Machias Consulting Unavailable Behzad Acosta Consulting Unavailable PROBLEMS PROBLEMS DATE TYPE CONDITION / CODE ATTENDING STATUS SOURCE 03/12/2018 Unknown K80.20 - Calculus Ander Rossi Active [place] [facility] cholecystitis Repository without obstruction / K80.20(ICD-10) 03/12/2018 Unknown N28.89 - Other Ander Rossi Active [facility] specified [facility] ureter / Repository N28.89(ICD-10) 03/06/2018 Unknown R10.9 - Unspecified UngurAbhijit Active [facility] abdominal pain / Community R10.9(ICD-10) Hospital Repository PROCEDURES PROCEDURES No Procedure Records FoundRESULTS RESULTS DISCHARGE INSTRUCTION Observed: 03/18/2018 Status: F Source: [place] 6:00 PM [facility] REPOSITORY [facility] Medical Records Department [address] [place] [address] Instructions for Home/Discharge Instructions 03/18/18 1042 MR#: [id number] Acct: [id number] Name: RUSS CARSON Rep #: [id number] : 1935 82 From: Ander Rossi MD PCP: Pavan Rossi III, MD Status: DEP [facility] [place] Discharge Diet: Light diet - advance as [...] Follow Up With: Ander Rossi MD - [phone] When: Call to make an appointment to be seen in about 10 days. 03/18/18 1800 <Electronically signed by Ander Rossi MD> Date Ander Rossi MD CC: Pavan Rossi III, MD Signed OPERATIVE REPORT Observed: 03/18/2018 Status: F Source: [place] 6:00 PM [facility] REPOSITORY [facility] Medical Records Department [address] [place] [address] Operative Report 03/18/18 1143 MR#: [id number] Acct: [id number] Name: RUSS CARSON Rep #: [id number] : 1935 82 From: Ander Rossi MD PCP: Pavan Rossi III, MD Status: DEP [facility] Y Location: [facility] Problem List (1) Left inguinal hernia Status: Chronic Report of Operation Date of Procedure: 03/18/18 Pre-Operative Diagnosis: Sliding left inguinal hernia Post-Operative Diagnosis: Same Surgery/Procedure Performed:: Laparoscopic left inguinal herniorrhaphy. Bard 3 DMax mesh lot number [id number]. Reference #[id number]. Expiry date 10/23/2022. Secure strap lot number [id number]. Expiry date 11/16/2019 Description of Surgical Findings:: [...] the umbilicus approximately up to 2-0 Vicryl hloiwo-dv-stpfw suture. Skin edges approximated up to 4 [...] LEAD ELECTROCARDIOGRAM Observed: 03/18/2018 Status: F Source: [place] 9:51 AM [facility] REPOSITORY [facility] Cardiovascular Services [address] [place] [address] 12 Lead EKG 03/15/18 0515 MR#: [id number] Acct: [id number] Name: RUSS CARSON Rep #: [id number] : 1935 82 From: Jace Benitez MD Attending Dr: Behzad Acosta MD Status: DIS [place] Ordering Dr: Behzad Acosta MD Date: 03/15/18 Location: [facility] Sex: M C Admitted: 03/14/18 Test Reason [...] IS UNCONFIRMED Confirmed by JACE BENITEZ MD ([id number]), scientific editor RAHEEM TRUJILLO ([id number]) on 03/18/2018 9:51:13 AM Referred By: DR ACOSTA Confirmed By:JACE BENITEZ MD 03/18/18 0951 Date Jace Benitez MD CC: Behzad Acosta MD; Pavan Rossi III, MD Signed 12 LEAD EKG W/ Observed: 03/18/2018 Status: F Source: [place] RHYTHM STRIP 9:24 AM [facility] REPOSITORY [facility] Cardiovascular Services [address] [place] [address] 12 Lead EKG with Rhythm Strip 03/14/18 0700 MR#: [id number] Acct: [id number] Name: RUSS CARSON Rep #: [id number] : 1935 82 From: Jace Benitez MD Attending Dr: Ander Rossi MD Status: DEP [facility] Ordering Dr: Ander Rossi MD Date: 03/14/18 [...] Abnormal ECG Confirmed by JACE BENITEZ MD ([id number]), scientific editor RAHEEM TRUJILLO ([id number]) on 03/18/2018 9:23:42 AM Referred By: Ander Rossi Confirmed By:JACE BENITEZ MD 03/18/18 0923 Date Jace Benitez MD CC: Pavan Rossi III, MD; Ander Rossi MD Signed DISCHARGE SUMMARY Observed: 03/15/2018 Status: F Source: [place] 11:14 AM [facility] REPOSITORY [facility] Medical Records Department [address] [place] [address] Discharge Summary 03/15/18 1049 MR#: [id number] Acct: [id number] Name: RUSS CARSON Rep #: [id number] : 1935 82 From: Behzad Acosta MD PCP: Pavan Rossi III, MD Status: ADM [place] Y Location: [place] [address] Discharge Date and Diagnosis - Problem List [...] reviewed. Patient age places him at the [id number] 2 score of at least 2 and [...] 3. Generalized osteoarthritis 5. Remote history of WI in 1979 patient did not undergo any [...] applicable Code Visit OBSV E AND M: 32347 Observation care discharge 03/15/18 1114 <Electronically signed by Behzad Acosta MD> Date Behzad Acosta MD Cosigner Signature (if applicable): Date CC: Behzad Acosta MD; Pavan Rossi III, MD Signed DISCHARGE INSTRUCTION Observed: 03/15/2018 Status: F Source: [place] 10:49 AM [facility] REPOSITORY [facility] Medical Records Department [address] [place] [address] Instructions for Home/Discharge Instructions 03/15/18 1046 MR#: [id number] Acct: [id number] Name: RUSS CARSON Rep #: [id number] : 1935 82 From: Behzad Acosta MD [...] STRESS REPORT Observed: 03/15/2018 Status: F Source: [place] 10:02 AM [facility] REPOSIT[facility] Cardiovascular Services [address] [place] [address] MR#: [id number] Acct: [id number] Name: RUSS CARSON Rep #: [id number] : 1935 82 From: Jace Benitez MD [...] MD Date Dictated: 03/15/18958 Date Transcribed: 03/15/18958 Zoning Technician: CO Signed BASIC METABOLIC Collected: 03/15/2018 Status: F Source: [place] PROFILE ([facility]) 3:58 AM [facility] REPOSITORY TYPE CODE TESTS RESULT OUT OF [...] By: #### L500.2500, L300.3900, L300.4310 #### [facility] [address] [place], [place], [address] PROTHROMBIN TIME W/INR Collected: 03/15/2018 Status: F Source: [place] 3:58 AM [facility] REPOSITORY TYPE CODE TESTS RESULT OUT OF RANGE REFERENCE UNITS LAB L300.4150 11.7-14.9 SECONDS Normal PROTIME 14.2 LAB L300.4200 Normal INR 1.1 Performed By: #### L500.2500, L300.3900, L300.4310 #### [facility] [address] [place], [place], [address] PARTIAL THROMBOPLAST Collected: 03/15/2018 Status: F Source: [place] TIME 3:58 AM [facility] REPOSITORY TYPE CODE TESTS RESULT OUT OF RANGE REFERENCE UNITS LAB L300.4310 24.1-36.2 Seconds Normal PTT 28.0 Performed By: #### L500.2500, L300.3900, L300.4310 #### [facility] [address] [facility] [place], [address] CBC W/DIFF, AUTOMATED Collected: 03/15/2018 Status: F Source: [place] 3:58 AM [facility] REPOSITORY TYPE CODE TESTS RESULT OUT OF [...] 1.13 Performed By: #### L100.0100 #### [facility] [address] [place], [address] CONSULTATION Observed: 03/14/2018 Status: F Source: [place] 5:38 PM [facility] REPOSITORY [facility] Medical Records Department [facility] [place] [address] Consultation 03/14/18 1719 MR#: [id number] Acct: [id number] Name: RUSS CARSON Rep #: [id number] : 1935 82 From: Jace Benitez MD PCP: Pavan Rossi III, MD Status: ADM [place] Y Location: [place] [address] Reason for Consult Date of Consultation: 03/14/18 Reason for Consultation: Evaluation of irregular heartbeat History of Present Illness: The patient is a 82 year old M with a past medical history significant for WI diagnosed in 1979 with no intervention, previous [...] 80.1 H, Lymph % (Auto) 11.5 L, [place] % (Auto) 6.9, Eos % (Auto) 0.9, [...] to call if any issues arise 03/14/18 2540 <Electronically signed by Jace Benitez MD> Date Jace Benitez MD Cosigner Signature (if applicable): Date CC: Jace Benitez MD; Pavan Rossi III, MD Signed TROPONIN-I Collected: 03/14/2018 Status: F Source: [place] 2:35 PM [facility] REPOSITORY Order Comment: 'TROP' Serial specimen #1, #2 or #3: 3 TYPE CODE TESTS RESULT OUT OF RANGE REFERENCE UNITS LAB L501.4010 <0.045 ng/mL Normal < 0.015 TROPONIN-I Result Comment: TROPONIN-I EXPECTED VALUES <0.045 Negative 0.045 - 0.590 Consistent with Cardiac Damage > OR = 0.600 Critical Value Not every elevated troponin is indicative of WI. These values should be used with clinical judgement in examining the patient's clinical picture for diagnosis. To establish a diagnosis of WI versus myocardial injury, there must be a demonstrated rise and/or fall in the troponin values, in addition to ischemic symptoms, EKG changes, new regional wall motion abnormality, and/or angiographical evidence. PLEASE NOTE: REFERENCE RANGES EDITED 17 Performed By: #### L501.4010 #### [facility] [address] [facility] [place], [address] ECHOCARDIOGRAM COMPLETE Observed: 03/14/2018 Status: F Source: [place] 1:50 PM [facility] REPOSITORY [facility] Cardiovascular Services [address] [place] [address] Echo Complete 03/14/18 0942 MR#: [id number] Acct: [id number] Name: RUSS CARSON Rep #: [id number] : 1935 82 From: Aristeo Dyson MD Attending Dr: Behzad Acosta MD Status: ADM MIL[place] Ordering Dr: Behzad Acosta MD Date: 03/14/18 Location: [facility] Sex: M C Admitted: 03/14/18 Reason For [...] PAVAN ROSSI III Performed By: Fadia Mercado [facility] 03/14/181348 Date Aristeo Dyson MD CC: Behzad Acosta MD; Pavan Rossi III, MD Date Dictated: 03/14/1842 Date Transcribed: 03/14/181348 Zoning Technician: Signed HISTORY AND PHYSICAL Observed: 03/14/2018 Status: F Source: [place] EXAM 12:57 PM [facility] REPOSITORY [facility] Medical Records Department [address] [place] [address] History and Physical 03/14/18924 MR#: [id number] Acct: [id number] Name: RUSS CARSON Rep #: [id number] : 1935 82 From: Behzad Acosta MD PCP: Pavan Rossi III, MD Status: ADM [place] Y Location: [place] [address] Problem List (1) Afib Status: Acute (2) [...] old M past medical history significant for WI diagnosed in 1979 with no intervention, previous [...] cardiology. Patient age places him at the [id number] 2 score of at least 2 and will therefore require systemic anticoagulation to prevent strokes however in view of his scheduled left inguinal herniorrhaphy will hold off. 2. Left inguinal herniorrhaphy scheduled to undergo repair on 03/18/2018 3. Generalized osteoarthritis 5. Remote history of WI in 1979 patient did not undergo any intervention 4. DVT prophylaxis SC Lovenox Code Visit OBSV E AND M: 58435 Initial observation care L3 03/14/18 1257 <Electronically signed by Behzad Acosta MD> Date Behzad Acosta MD Cosigner Signature: Date (if applicable) CC: Behzad Acosta MD; Pavan Rossi III, MD Signed TROPONIN-I Collected: 03/14/2018 Status: F Source: [place] 11:20 AM [facility] REPOSITORY Order Comment: 'TROP' Serial specimen #1, #2 or #3: 2 TYPE CODE TESTS RESULT OUT OF RANGE REFERENCE UNITS LAB L501.4010 <0.045 ng/mL Normal < 0.015 TROPONIN-I Result Comment: TROPONIN-I EXPECTED VALUES <0.045 Negative 0.045 - 0.590 Consistent with Cardiac Damage > OR = 0.600 Critical Value Not every elevated troponin is indicative of WI. These values should be used with clinical judgement in examining the patient's clinical picture for diagnosis. To establish a diagnosis of WI versus myocardial injury, there must be a demonstrated rise and/or fall in the troponin values, in addition to ischemic symptoms, EKG changes, new regional wall motion abnormality, and/or angiographical evidence. PLEASE NOTE: REFERENCE RANGES EDITED 17 Performed By: #### L501.4010 #### [facility] [address] [facility] [place], [address] EMERGENCY DEPARTMENT Observed: 03/14/2018 Status: F Source: [place] SUMMARY 9:19 AM [facility] REPOSITORY [facility] Medical Records Department [address] [facility] [place] [address] Emergency Department Summary 03/14/18 0916 MR#: [id number] Acct: [id number] Name: RUSS CARSON Rep #: [id number] : 1935 82 From: Abhijit Bateman DO [...] fibrillation-new onset] This note was generated with [employer] dictation software. It may contain incorrect words, [...] your Primary Care Provider. Call [facility] ([phone]) or report to the closest Emergency Room. Call 911 if necessary. 03/14/18 0919 <Electronically signed by Abhijit Bateman DO> Date Abhijit Bateman DO Cosigner Signature (If Indicated): Date CC: Pavan Rossi III, MD CHEST 1 VIEW Observed: 03/14/2018 Status: F Source: [place] (PORTABLE) 8:22 AM [facility] REPOSITORY [facility] Imaging Services [facility] [place] [address] Chest 1 View (Portable) MR#: [id number] Acct: [id number] Name: RUSS CARSON Rep #: [id number] : 1935 M 82 From: Gela Sheppard MD PCP: Pavan Rossi III, MD Status: REG ER Study: Chest 1 View (Portable) Date of Exam: 03/14/18 Exam# [id number] Ordering Dr: Abhijit Bateman DO STUDY: X-RAY [...] Pavan Rossi III, MD; Abhijit Bateman DO Zoning Technician: Signed CBC W/DIFF, AUTOMATED Collected: 03/14/2018 Status: F Source: [place] 8:12 AM [facility] REPOSITORY TYPE CODE TESTS RESULT OUT OF [...] 0.75 Performed By: #### L100.0100 #### [facility] [address] [place], [place] [address]all [facility] [place], [address] BASIC METABOLIC Collected: 03/14/2018 Status: F Source: [place] PROFILE (BMP) 8:12 AM [facility] REPOSITORY TYPE CODE TESTS RESULT OUT OF [...] Performed By: #### L500.2500, L501.4010 #### [facility] [address] [facility]. [place], [place], [address] TROPONIN-I Collected: 03/14/2018 Status: F Source: [place] 8:12 AM [facility] REPOSITORY TYPE CODE TESTS RESULT OUT OF RANGE REFERENCE UNITS LAB L501.4010 <0.045 ng/mL Normal < 0.015 TROPONIN-I Result Comment: TROPONIN-I EXPECTED VALUES <0.045 Negative 0.045 - 0.590 Consistent with Cardiac Damage > OR = 0.600 Critical Value Not every elevated troponin is indicative of WI. These values should be used with clinical judgement in examining the patient's clinical picture for diagnosis. To establish a diagnosis of WI versus myocardial injury, there must be a demonstrated rise and/or fall in the troponin values, in addition to ischemic symptoms, EKG changes, new regional wall motion abnormality, and/or angiographical evidence. PLEASE NOTE: REFERENCE RANGES EDITED 17 Performed By: #### L500.2500, L501.4010 #### [facility] [address] [place], [place], [address] D-DIMER QUANTITATIVE Collected: 03/14/2018 Status: F Source: [place] (DVT/PE) 8:12 AM [facility] REPOSITORY TYPE CODE TESTS RESULT OUT OF RANGE REFERENCE UNITS LAB L300.8000 0.27-0.49 FEU/ug/m Low D-DIMER < 0.27 QUANT Result Comment: NORMAL D-Dimer level (<0.50) indicates no DVT or PE. Performed By: #### L300.8000 #### [facility] [address] [place], [address] LIVER PROFILE Collected: 03/14/2018 Status: F Source: [place] 8:12 AM [facility] REPOSITORY TYPE CODE TESTS RESULT OUT OF [...] Performed By: #### L500.3400, L501.9520 #### [facility] [address] [facility] [place], [address] THYROID STIM HORMONE Collected: 03/14/2018 Status: F Source: [place] (TSH) 8:12 AM [facility] REPOSITORY TYPE CODE TESTS RESULT OUT OF RANGE REFERENCE UNITS LAB L501.9520 0.358-3.74 uIU/mL Normal TSH 3.44 Performed By: #### L500.3400, L501.9520 #### [facility] [address] [place], [address] MAGNESIUM Collected: 03/14/2018 Status: F Source: [place] 8:12 AM [facility] REPOSITORY TYPE CODE TESTS RESULT OUT OF RANGE REFERENCE UNITS LAB L501.5200 1.6-2.6 mg/dL Normal MG 1.9 Result Comment: Moderate Hemolysis, Result may be falsely increased. Performed By: #### L501.5200 #### [facility] [address] [place], [address] BNP,B-TYPE NATRIURETIC Collected: 03/14/2018 Status: F Source: [place] PEPTIDE 8:12 AM [facility] REPOSITORY TYPE CODE TESTS RESULT OUT OF RANGE REFERENCE UNITS LAB L503.6620 0-100 pg/mL Normal B-TYPE 77.2 TASHA PEP Performed By: #### L503.6620 #### [facility] [address] [place], [address] ABDOMEN LIMITED Observed: 03/13/2018 Status: F Source: [place] 8:47 AM [facility] REPOSITORY [facility] Imaging Services [address] [facility] [address] Abdomen Limited MR#: [id number] Acct: [id number] Name: RUSS CARSON Rep #: [id number] : 1935 M 82 From: Chilo Marrufo MD PCP: Pavan Rossi III, MD Status: REG CLI Study: Abdomen Limited Date of Exam: 03/13/18 Exam# [id number] Ordering Dr: Ander Rossi MD STUDY: ABDOMINAL [...] Pavan Rossi III, MD; Ander Rossi MD Zoning Technician: Signed SURGERY VISIT REPORT Observed: 03/12/2018 Status: F Source: [place] 4:11 PM [facility] REPOSITORY [facility] [address] [place] [address]. 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 He presented to the [facility] emergency room on March 06, 2018 and attempt to facilitate management. He does not seek medical attention frequently and states that it has been multiple years since he is gone into see his primary care physician Dr. Pavan Rossi III. On March 06, [address] scan was obtained at the [facility]. This demonstrates a small hiatal hernia. [...] DISCHARGE INSTRUCTION Observed: 03/06/2018 Status: F Source: [place] 9:54 PM [facility] REPOSITORY [facility] Medical Records Department [address] [place] [address] Discharge Instruction 03/06/18 2153 MR#: [id number] Acct: [id number] Name: RUSS CARSON Rep #: [id number] : 1935 82 From: Abhijit Bateman DO PCP: Pavan Rossi III, MD Status: REG ER ED Disposition - Plan for ED Patient: Chief Complaint: Abd Pain Instructions: ED Hernia Inguinal Prescriptions: Hydrocodone Bitart/Apap 5-325 [[place] 5MG-325MG] 1 tab PO Q4H PRN PRN 2 Days #14 tab PRN Reason: Pain Referrals: Pavan Rossi III, MD [Primary Care Provider] - Ander Rossi MD [STAFF PHYSICIAN] - 3-5 Days What to do if you have Problems For any increased pain, shortness of breath, bleeding, nausea or vomiting, chest pain, or any unexpected problems, contact your Primary Care Provider. Call [facility] ([phone]) or report to the closest Emergency Room. Call 911 if necessary. 03/06/[address] <Electronically signed by Abhijit Bateman DO> Date Abhijit Bateman DO Cosigner Signature (If Indicated): Date CC: Pavan Rossi III, MD EMERGENCY DEPARTMENT Observed: 03/06/2018 Status: F Source: [place] SUMMARY 9:53 PM [facility] REPOSITORY [facility] Medical Records Department [address] [facility] [place] [place] [address] Emergency Department Summary 03/06/182149 MR#: [id number] Acct: [id number] Name: RUSS CARSON Rep #: [id number] : 1935 82 From: Abhijit Bateman DO [...] [Patient will be given a prescription for [place] for pain. Patient advised use a stool softener daily.] Disposition: [Discharged home in stable condition] Impression: [Left inguinal hernia] This note was generated with [employer] dictation software. It may contain incorrect words, [...] your Primary Care Provider. Call [facility] ([phone]) or report to the closest Emergency Room. Call 911 if necessary. 03/06/18 2153 <Electronically signed by Abhijit Bateman DO> Date Abhijit Bateman DO Cosigner Signature (If Indicated): Date CC: Pavan Rossi III, MD URINALYSIS, COMPLETE Collected: 03/06/2018 Status: F Source: [place] 7:30 PM [facility] REPOSITORY Order Comment: How was Urine Obtained? [...] SEEN Performed By: #### L400.0001 #### [facility] [address] [place], [address] CBC W/DIFF, AUTOMATED Collected: 03/06/2018 Status: F Source: [place] 7:07 PM [facility] REPOSITORY TYPE CODE TESTS RESULT OUT OF [...] 1.75 Performed By: #### L100.0100 #### [facility] [address] [place], [address] BASIC METABOLIC Collected: 03/06/2018 Status: F Source: [place] PROFILE ([facility]) 7:07 PM [facility] REPOSITORY TYPE CODE TESTS RESULT OUT OF [...] 9 Performed By: #### L500.2500 #### [facility] [address] [place], [address] LACTIC ACID Collected: 03/06/2018 Status: F Source: FELT 7:07 PM [facility] REPOSITORY Order Comment: Yes/No query for Sepsis Lactate Rule Y TYPE CODE TESTS RESULT OUT OF RANGE REFERENCE UNITS LAB L503.6005 0.4-2.0 mmol/L Normal LACTIC ACID 1.1 Performed By: #### L503.6005 #### [facility] [address] [place], [address] ABDOMEN/PEL W ORAL CONT Observed: 03/06/2018 Status: F Source: FELT ONLY 6:52 PM [facility] REPOSITORY [facility] Imaging Services [address] [place] [address] Abdomen/Pel W ORAL Cont Only MR#: [id number] Acct: [id number] Name: RUSS CARSON Rep #: [id number] : 1935 M 82 From: Kady Higgins MD PCP: Pavan Rossi III, MD Status: REG ER Study: Abdomen/Pel W ORAL Cont Only Date of Exam: 03/06/18 Exam# [id number] Ordering Dr: Abhijit Bateman DO STUDY: CT [...] Pavan Rossi III, MD; Abhijit Bateman DO Zoning Technician: Signed CNPTOUTREACH Observed: 03/05/2018 Status: COMPLETED Source: [place] 12:00 AM [facility] REPOSITORY Patient Outreach (FAMPST) RUSS CARSON ([id number]) 1935 M Date Time Provider Department 03/05/18 PAVAN ROSSI III FAMPST During your visit today, we recorded the following information about you: Allergies As of Date: 03/05/2018 Noted Allergy Reaction LIPITOR (ATORVASTATIN CALCIUM) 03/02/2005 Comments: myalgia PENICILLINS 03/01/2005 SULFA (SULFONAMIDE ANTIBIOTICS) 03/01/2005 Date Reviewed: 12/08/2011 Reviewed by: Desiree Mirza LPN - Fully Assessed Visit Diagnosis:Medication management [Z79.899] Order(s):LIPID PANEL BASIC [SQLIPB] Order #: [id number] FUTURE Prescriptions as of 03/05/2018 Sig: ACETAMINOPHEN 300 MG-CODEINE * Take 1 tablet by mouth every * Problem List As Of Date 03/05/2018 Noted Resolved HYPERLIPIDEMIA NEC/NOS [E78.5] OSTEOARTHROS NOS-UNSPEC [M19.90] INVALID FOR* Encounter Status:Closed by Razoom, PRODUSER on 03/20/18 ALLERGIES ALLERGIES DATE TYPE / CODE NAME / CODE REACTION SEVERITY SOURCE 03/15/2018 Drug Penicillins/F Unknown- been Unknown [facility] All[facility]/4160 [id number](RXN 30yrs ago [facility] [address](SNOMED ORM) Repository CT) 03/15/2018 Drug Sulfa Unknown-been Unknown [facility] Allergy/4160 (Sulfonamide 30yrs ago [place] [address](SNOMED Antibiotics)/ Repository CT) [id number](RX NORM) ENCOUNTERS ENCOUNTERS ADMIT/DISCHARGE ACCOUNT ADMITTING ENCOUNTER LOCATION SOURCE NUMBER CLASS 03/18/2018/ [id number] Ambulatory [facility] 9 1 [facility] ing:SDCRoom: Repository AC07 03/14/2018/ [id number] Behzad Acosta Ambulatory [facility] 9 0 [facility] ing:PCURoom: Repository [id number]: 1 03/14/2018 [id number] Behzad Acosta Ambulatory BMSBuilding:B [facility] 3 MS.[facility] Repository 03/14/2018 [id number] Behzad Acosta Ambulatory BMSBuilding:B [place] 0 MS.[facility] Repository 03/14/2018 [id number] Behzad Acosta Ambulatory BMSBuilding:B [place] 7 MS.[facility] Repository 03/14/2018/ [id number] Ambulatory [facility] 9 8 [facility] ing:EN Repository 03/13/2018 [id number] Ambulatory [facility] 8 [facility] ing:US Repository 03/12/2018/ [id number] Ambulatory BMSBuilding:B [place] 9 3 MS.[facility] Repository 03/06/2018/ [id number] Emergency [facility] 9 9 [facility] ing:ED Repository PAYERS PAYERS ENCOUNTER GUARANTOR PAYER SUBSCRIBER SOURCE 03/18/2018 RUSS Hester Primary RUSS Zabala [id number] [facility] [id number] 12/27/17Policy Number: Repository [id number]: 330 [id number] [phone] () Date:[id number] [address]HA: 03/18/2018 Secondary NOT GIVENUNK [facility] Insurance:SELF PAY [facility] Number: Effective Repository Date:2018-03-12 03/14/2018 RUSS Hester Primary RUSS Zabala [id number] [facility] : [id number]Policy Number: Repository [id number]: 330) [id number] [phone] (HP) Date:2451-86-22GX [address] [place] [address]QH: 03/14/2018 Secondary NOT GIVENUNK [facility] Insurance:SELF PAY [facility] Number: Effective Repository Date:2018-03-14 03/14/2018 RUSS Hester Primary RUSS Zabala [id number] Insurance:[facility] : [id number]/27/[place]Policy Number: Repository [id number]: (330 [id number] [phone] (HP) Date:8345-56-46MI [address] [place] [phone]: 03/14/2018 Secondary NOT GIVENUNK [facility] Insurance:SELF PAY [facility] Number: Effective Repository Date:2018-03-14 03/14/2018 RUSS W Primary RUSS Zabala [id number] [facility] : [id number]Policy Number: Repository [id number]: (330) [id number] [phone] (HP) Date:2701-49-62NE [address] [address]SY: 03/14/2018 Secondary NOT GIVENUNK [facility] Insurance:SELF PAY [facility] Number: Effective Repository Date:2018-03-14 03/14/2018 RUSS W Primary RUSS Zabala [id number] [facility] : [id number]Policy Number: Repository [id number]: (330) [id number] [phone] (HP) Date:2463-87-12XG [address] [address]ZW: 03/14/2018 Secondary NOT GIVENUNK [facility] Insurance:SELF PAY [facility] Number: Effective Repository Date:2018-03-14 03/14/2018 RUSS W Primary RUSS Zabala [id number] Insurance:[facility] : [id number]Policy Number: Repository [id number]: 330 [id number] [phone] (HP) Date:6558-70-14SH [address] [address]LL: 03/14/2018 Secondary NOT GIVENUNK [place] Insurance:SELF PAY [facility] Number: Effective Repository Date:2018-03-12 03/13/2018 RUSS W Primary RUSS Zabala [id number] [facility] : [id number], [place]Policy Number: Repository [id number]: (330 [id number] [phone] (HP) Date:9755-92-47VZ [address] [address]QM: 03/13/2018 Secondary NOT GIVENUNK [facility] Insurance:SELF PAY [facility] Number: Effective Repository Date:2018-03-12 03/12/2018 RUSS Primary RUSS Zabala [id number] [facility] : [id number]/17Policy Number: Repository [id number]: (330 [id number] [phone] () Date:6854-77-34RE [address] [address]OQ: 03/12/2018 Secondary NOT GIVENUNK [facility] Insurance:SELF PAY [facility] Number: Effective Repository Date:2018-03-12 03/06/2018 RUSS W Primary RUSS Zabala [id number] Insurance:[facility] IN [facility] : [id number], [place] 12/27/17Policy Number: Repository [id number]: (252) [id number] [phone] () Date:3624-27-04UI [address] [place] [address]HE: 03/06/2018 Secondary NOT GIVENUNK [facility] Insurance:SELF PAY [facility] Number: Effective Repository Date:2018-03-06
== END 2018-03-18 16:58 | disposition home or self-care (01) ==
LOC: SDC 07:50 → AC 07:51
PROVIDERS: Family Provider Family Medicine; PCP Family Medicine; Referring Provider Surgery; Visit Provider Surgery
PROC: (CPT 49650; principal; 2018-03-18 09:35)
DX: K40.90 Unilateral inguinal hernia, without obstruction or gangrene, not specified as recurrent (principal); K80.20 Calculus of gallbladder without cholecystitis without obstruction; N28.1 Cyst of kidney, acquired; I48.91 Unspecified atrial fibrillation; J44.9 Chronic obstructive pulmonary disease, unspecified; K57.30 Diverticulosis of large intestine without perforation or abscess without bleeding; N40.1 Benign prostatic hyperplasia with lower urinary tract symptoms; R35.1 Nocturia; M19.90 Unspecified osteoarthritis, unspecified site; Z88.0 Allergy status to penicillin; Z88.2 Allergy status to sulfonamides; I25.2 Old myocardial infarction; Z87.891 Personal history of nicotine dependence
CPT/HCPCS: 49650; J7120; C1781; J2405

== ENCOUNTER 2019-04-15 23:41 | Emergency (ER) | payer MEDICARE, SELFPAY ==
[2018-03-18 08:23] VITALS: BMI 22.8
[2019-04-15 23:41] VITALS: BP 179/106; PULSE 94; RESP 20; TEMP 36.8; O2SAT 97; BMI 23.0
[2019-04-16 00:49] VITALS: O2SAT 98
--- NOTE | 2019-04-16 00:54 | RAD_ITS ---
HISTORY: COUGH X 1 WEEK ADDITIONAL HISTORY: None provided. COMPARISON: 03/14/2018 , 12/30/2015 TECHNIQUE: Frontal and lateral chest radiographs. Number of images including paperwork: 2 FINDINGS: LUNGS AND PLEURA: No consolidation, mass or pleural effusion. CARDIAC SILHOUETTE: Stable. MEDIASTINUM AND ASHWIN: Aortic calcification. UPPER ABDOMEN: Unremarkable. SKELETON AND SOFT TISSUES: No acute findings. Degenerative changes. OTHER DEVICES AND HARDWARE: None. RAD/Chest PA and Lateral IMPRESSION: No acute cardiopulmonary abnormality. at 0142 Reported and signed by: Cristy Dumont MD Electronically Signed: Cristy Dumont MD at 1:41 EST Tel , Service support ,
--- NOTE | 2019-04-16 00:54 | EKG12_ITS ---
Test Reason : COUGH Blood Pressure : / mmHG Vent. Rate : 077 BPM Atrial Rate : 394 BPM P-R Int : 000 ms QRS Dur : 092 ms QT Int : 392 ms P-R-T Axes : 000 011 042 degrees QTc Int : 443 ms Atrial fibrillation with premature ventricular or aberrantly conducted complexes Inferior infarct , age undetermined Possible Anterolateral infarct , age undetermined Abnormal ECG Confirmed by AFSHAN SOLORIO ([id number]), city editor KALPANA LEVI ([id number]) on 04/17/2019 9:39:06 AM Referred By: AFSHIN Confirmed By:AFSHAN SOLORIO
--- NOTE | 2019-04-16 00:55 | ED.VIS.FLU ---
History of Present Illness Chief Complaint: Cough Informant: Patient Onset: Days Context: Gradual Onset Timing: Intermittent Associated Symptoms: Cough, Sore throat. Negative for: Chills, Ear pain, Fever, Post-nasal drainage, Rhinorrhea Chest Pain: None Narrative: Patient is an 83-year-old male with history of atrial fibrillation on Eliquis and stroke presenting with a cough. Patient states he had a worsening cough over the past week. It is nonproductive. He denies any associated symptoms such as postnasal drip, nasal congestion, wheezing, fever, ear pain, chest pain, nausea, vomiting, diarrhea or urinary symptoms. His family was concerned because of the persistence of the cough so they wanted him to come to the emergency room which is why he is here tonight. Patient's been taking cough drops with minimal relief. He denies any other complaints or concerns at this time. Patient states he does not want blood work if it is at all possible. Past Medical History - Allergies and Home Meds Allergies/Adverse Reactions: Allergies Penicillins Allergy (Verified 04/16/19 00:58) Unknown- been 30yrs ago Sulfa (Sulfonamide Antibiotics) Allergy (Verified 04/16/19 00:58) Unknown-been 30yrs ago Primary Care Physician: Pavan Rossi III, MD [Primary Care Provider] - Past Medical History: - - Atrial fib, coronary artery disease, history of stroke Surgical History: noncontributory, cholecystectomy Smoking Status: Former smoker - Family History Maternal Family History: Family History (Last Reviewed 03/26/18 @ 13:05 by Delmis Edwards) Sister Diabetes Family History: Reports: - Paternal Family History: Family History (Last Reviewed 03/26/18 @ 13:05 by Delmis Edwards) Sister Diabetes Family History: Reports: - Offspring Family History: Family History (Last Reviewed 03/26/18 @ 13:05 by Delmis Edwards) Sister Diabetes Family History: Reports: No pertinent history Review of Systems General: Denies: Chills, Fever, Sweats Cardiovascular: Denies: Chest pain, Palpitations Respiratory: Reports: Cough. Denies: Dyspnea, Sputum, Dyspnea on exertion Gastrointestinal: Denies: Abdominal pain, Nausea, Vomiting, Diarrhea, Melena, Hematochezia Genitourinary: Denies: Dysuria, Hematuria, Frequency Skin: Denies: Rash Neurological: Denies: Headache, Weakness, Numbness Physical Exam Vital Signs/Narrative: Vital Signs Temp Pulse Resp BP Pulse Ox 04/15/19 23:41 98.2 F 94 20 H 179/106 H 97 Inital Vital Signs reviewed: Yes General: Well nourished, Well developed Head: Normocephalic, Atraumatic Eyes: Perrl, EOMI Neck: Supple, Nontender Cardiovascular: Regular rate, Regular rhythm, No murmurs Respiratory: No distress, No Stridor, Chest nontender, - - Intermittent crackle at the left base. Negative for: Rales, Rhonchi, Wheezing, Diminished, Decreased Air Movement Abdomen: Soft, Nontender, Nondistended, Normal bowel sounds Back: Nontender, Normal Inspection Extremities: Nontender, No edema Skin: Normal color, No rash Neurological: Alert, Oriented x3, Cranial nerves II-XII grossly intact, Normal Strength, Normal Sensation Psychological: Normal affect Diagnostic/Tx/Re-eval Chest X-Ray - ED: 2 View, Read by ED Physician, Read by Radiologist, No Acute Disease Clinical Impression(s) from Imaging Studies Chest X-Ray 04/16/19 00:54 IMPRESSION: No acute cardiopulmonary abnormality. at 0142 Reported and signed by: Cristy Dumont MD Electronically Signed: Cristy Dumont MD at 1:41 EST Tel , Service support , - Rhythm Strip Rhythm Strip: A-fib Rate: 77 Ectopy: None, PVC(s) - EKG Initial EKG Interpretation: Atrial Fibrillation, - - Fibrillation at a rate of 77 PVC present Normal axis Normal ST segments Compared to prior EKG no changes - Medical Decision Making Patient is evaluated for 1 week of cough. He is otherwise well-appearing. He is offered blood work for further evaluation including troponin, CBC and BMP. Patient declined stating he does not want an IV. Patient's EKG does not show any signs of ACS or heart strain. His x-ray does not show any pneumonia or acute pathology. Flu swab is negative. Likely patient has bronchitis. He is not coughing while I evaluate him. He will be started on a burst of prednisone, albuterol inhaler and Tessalon Perles. Patient is counseled on signs and symptoms requiring return to the emergency room. Patient verbalizes agreement and understand this plan. Patient discharged home in stable and improved condition. ED Disposition - Plan for ED Patient: Disposition: Home or Assisted Living Diagnosis: Bronchiolitis Instructions: BRONCHITIS, No Antibiotic (Adult) Prescriptions: Prednisone [Deltasone] 40 mg PO DAILY #10 tab Prescription Printed Benzonatate [Tessalon Perle] 100 mg PO 4X/DAY PRN PRN #15 cap PRN Reason: Cough Prescription Printed Referrals: Pavan Rossi III, MD [Primary Care Provider] - Additional Instructions: Likely you have a cough caused by a viral illness which caused you to have bronchitis. Your cough can last for up to 3 weeks. If you start having difficulty breathing or fever please return the emergency room for reevaluation. Right now you do not have any signs of pneumonia and do not require antibiotics. Use the inhaler every 4-6 hours as needed for coughing or wheezing. 1 to 2 puffs. Follow-up with your primary care doctor on Sunday if no improvement.
[2019-04-16 00:59] VITALS: BP 149/82; PULSE 78; RESP 20; O2SAT 98
[2019-04-16 02:58] VITALS: BP 157/84; PULSE 70; RESP 18; O2SAT 98
== END 2019-04-16 03:00 | disposition home or self-care (01) ==
PROVIDERS: Emergency Provider Emergency Medicine; PCP Family Medicine
DX: J21.9 Acute bronchiolitis, unspecified (principal); I48.91 Unspecified atrial fibrillation; I25.10 Atherosclerotic heart disease of native coronary artery without angina pectoris; Z79.01 Long term (current) use of anticoagulants; Z79.899 Other long term (current) drug therapy; Z88.0 Allergy status to penicillin; Z88.2 Allergy status to sulfonamides; Z86.73 Personal history of transient ischemic attack (TIA), and cerebral infarction without residual deficits; Z87.891 Personal history of nicotine dependence; Z90.49 Acquired absence of other specified parts of digestive tract
CPT/HCPCS: 71046; 87804; 93005; 99283

== ENCOUNTER 2021-02-21 08:18 | Emergency (ER) | payer MEDICARE, SELFPAY ==
[2021-02-21 08:20] VITALS: BP 161/80; PULSE 89; RESP 17; TEMP 36.6; O2SAT 98; BMI 24.7
--- NOTE | 2021-02-21 08:28 | RAD_ITS ---
INDICATION: injury EXAMINATION/TECHNIQUE: X-RAY - RIGHT XR Ankle Min 3 Views 3 VIEWS COMPARISON: None. FINDINGS: SOFT TISSUES: Mild bimalleolar cyst soft tissue swelling is visualized more prominent overlying the lateral malleolus.. No radiopaque foreign body. BONES/JOINTS: No acute fracture or subluxation.. Normal alignment. Preservation of the joint space.. No sclerotic or destructive changes observed. RAD/Ankle min 3 Views IMPRESSION: Bimalleolar soft tissue swelling, no evidence of acute osseous abnormality is seen. Electronically Signed: Eber Mckeon MD at 9:41 EST Tel , Service support ,
--- NOTE | 2021-02-21 08:28 | CT_ITS ---
INDICATION: injury EXAMINATION: CT BRAIN - CT Head or Brain W/O Contrast Injection TECHNIQUE: Multiple axial images were obtained of the head without intravenous contrast. A radiation dose optimization technique was used for this scan. IV Contrast dosage and agent: None. COMPARISON: None FINDINGS: Left frontal scalp soft tissue hematoma is visualized. No evidence of preseptal extension. No underlying osseous abnormality is seen. BRAIN PARENCHYMA: No intra- or extra-axial hemorrhage. No evidence of acute infarct. No intracranial mass or mass effect. Scattered areas of low attenuation are visualized in the periventricular and subcortical white matter consistent with some mild chronic microvascular disease unremarkable for the patient''s age. No evidence of acute territorial infarct is seen. Posterior fossa structures are unremarkable. CSF SPACES: Appropriate for age. No hydrocephalus. Basal cisterns are patent. CALVARIUM, SKULL BASE, PARANASAL SINUSES AND MASTOID AIR CELLS: Clear. No discrete lytic or blastic abnormalities. ORBITS: Both globes, extraocular muscles, optic nerves and retrobulbar fat appear unremarkable. ASPECTS Score for Acute Strokes: 10 CT/Brain/Head without Contrast IMPRESSION: Left frontal scalp soft tissue hematoma. No evidence of acute intracranial pathology is seen. Electronically Signed: Eber Mckeon MD at 9:39 EST Tel , Service support ,
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
[2021-02-21 10:51] VITALS: BP 145/70; PULSE 68; RESP 16; O2SAT 97
== END 2021-02-21 10:52 | disposition home or self-care (01) ==
PROVIDERS: Emergency Provider Emergency Medicine
DX: S90.01XA Contusion of right ankle, initial encounter (principal); S00.81XA Abrasion of other part of head, initial encounter; S00.31XA Abrasion of nose, initial encounter; S60.512A Abrasion of left hand, initial encounter; S60.511A Abrasion of right hand, initial encounter; S50.312A Abrasion of left elbow, initial encounter; S50.311A Abrasion of right elbow, initial encounter; S90.811A Abrasion, right foot, initial encounter; V48.4XXA Person boarding or alighting a car injured in noncollision transport accident, initial encounter; Y93.9 Activity, unspecified; Y92.9 Unspecified place or not applicable; Y99.9 Unspecified external cause status; N40.0 Benign prostatic hyperplasia without lower urinary tract symptoms; Z79.01 Long term (current) use of anticoagulants; Z79.899 Other long term (current) drug therapy; Z87.891 Personal history of nicotine dependence
CPT/HCPCS: 70450; 73610; 90715; 99284

== ENCOUNTER 2022-07-17 08:38 | Emergency (ER) | payer MEDICARE, SELFPAY ==
[2022-07-17 08:39] VITALS: BP 128/63; PULSE 75; RESP 18; TEMP 36.6; O2SAT 97; BMI 22.6
--- NOTE | 2022-07-17 09:25 | CT_ITS ---
INDICATION: trauma EXAMINATION: CT CERVICAL SPINE - CT Spine Cervical W/O Contrast Injection TECHNIQUE: Helically acquired images were obtained of the cervical spine. 2D reformatted images were reviewed. A radiation dose optimization technique was used for this scan. IV Contrast dosage and agent: None. RADIATION DOSAGE (If Supplied By Facility): CTDIvol = ( 15.87 ) mGy, DLP = ( 310.14 ) mGycm COMPARISON: FINDINGS: VERTEBRAE: No fracture or traumatic subluxation. No discrete lytic or blastic abnormality. Normal alignment. There is multilevel facet hypertrophy. Normal craniocervical junction and cervicothoracic junction. DISCS and SPINAL CANAL: There is multilevel degenerative disc disease. No critical stenosis. NECK SOFT TISSUES: There are vascular calcifications. No prevertebral soft tissue swelling. There is no cervical adenopathy. LUNG APICES: Clear. CT/Spine Cervical without Contras IMPRESSION: No evidence of acute cervical spinal fracture. Multilevel degenerative changes. Atherosclerosis. Electronically Signed: Kady Higgins MD at 10:22 EDT ,
--- NOTE | 2022-07-17 09:25 | CT_ITS ---
INDICATION: trauma EXAMINATION: CT BRAIN - CT Head or Brain W/O Contrast Injection TECHNIQUE: Multiple axial images were obtained of the head without intravenous contrast. A radiation dose optimization technique was used for this scan. IV Contrast dosage and agent: None. RADIATION DOSAGE (If Supplied By Facility): CTDIvol = ( 44.99 ) mGy, DLP = ( 779.24 ) mGycm COMPARISON: February 21, 2021 FINDINGS: BRAIN PARENCHYMA: No intra- or extra-axial hemorrhage. No evidence of acute infarct. No intracranial mass or mass effect. There is preservation of the lopez/white matter interface. Posterior fossa structures are unremarkable. CSF SPACES: Appropriate for age. No hydrocephalus. Basal cisterns are patent. CALVARIUM, SKULL BASE, PARANASAL SINUSES AND MASTOID AIR CELLS: Clear. No discrete lytic or blastic abnormalities. ORBITS: Both globes, extraocular muscles, optic nerves and retrobulbar fat appear unremarkable. ASPECTS Score for Acute Strokes: 10 CT/Brain/Head without Contrast IMPRESSION: 1 no acute intracranial process. Electronically Signed: Kady Higgins MD at 10:06 EDT ,
--- NOTE | 2022-07-17 10:05 | RAD_ITS ---
INDICATION: fall EXAMINATION/TECHNIQUE: X-RAY - LEFT XR Wrist Min 3 Views 3 VIEWS COMPARISON: FINDINGS: SOFT TISSUES: No soft tissue swelling or gas. There are calcific densities projecting over the triangular fibrocartilage complex consistent with chondrocalcinosis. BONES/JOINTS: The bones are diffusely demineralized. There is a fracture within the distal radial metaphysis. There is mild dorsal displacement of the distal radius. There are degenerative changes throughout the wrist. No sclerotic or destructive changes observed. RAD/Wrist min 3 Views IMPRESSION: Distal radial fracture. Chondrocalcinosis. Degenerative changes. Electronically Signed: Kady Higgins MD at 10:27 EDT ,
--- NOTE | 2022-07-17 10:05 | RAD_ITS ---
INDICATION: fall EXAMINATION/TECHNIQUE: X-RAY - RIGHT XR Hand Min 3 Views 3 VIEWS COMPARISON: January 12, 2016 FINDINGS: SOFT TISSUES: No soft tissue swelling or gas. No radiopaque foreign body. BONES/JOINTS: The bones are diffusely demineralized. No acute fracture or subluxation. There are stable plate and screw screw fixation devices within the visualized distal radius and ulna. There is a stable distal radial deformity consistent with an old fracture. There is a stable deformity of the fifth metacarpal consistent with an old fracture. There are degenerative changes throughout the wrist and hand. Normal alignment. Preservation of the joint space.. No sclerotic or destructive changes observed. RAD/Hand Min 3 Views IMPRESSION: Degenerative changes. Electronically Signed: Kady Higgins MD at 10:29 EDT ,
--- NOTE | 2022-07-17 10:05 | RAD_ITS ---
INDICATION: fall EXAMINATION/TECHNIQUE: X-RAY - XR Ribs Unilateral W/ PA Chest Min 3 Views COMPARISON: April 16, 2019 FINDINGS: SOFT TISSUES: No soft tissue swelling or gas. BONES: No displaced fracture. No sclerotic or destructive changes observed. There are degenerative changes of the shoulders. There is superior migration of the humeral head suggestive of rotator cuff pathology. VISUALIZED LUNGS: Clear. No pneumothorax. RAD/Ribs Uni Min 3V w/PA Chest IMPRESSION: No evidence of displaced rib fracture. Degenerative changes of the shoulders. Superior migration of the humeral heads suggestive of rotator cuff pathology. Electronically Signed: Kady Higgins MD at 10:31 EDT ,
[2022-07-17] MEDS: Diphth,Pertuss(Acell),Tet Vac 0.5 ML Vial IM (10:42)
[2022-07-17] MEDS: Lidocaine 1% (20 ml mdv) 20 ML Vial INFILT (11:52)
--- NOTE | 2022-07-17 12:34 | EDS_ITS ---
HPI History of Present Illness Chief Complaint: Fall Informant: patient Narrative Narrative: Patient presents after fall. He states he tripped and fell while going into a local restaurant to have breakfast this morning. He does have abrasions and lacerations to the right side of his face. He denies loss of consciousness. He reports pain to his right third finger as well as his left wrist. He does have some abrasions noted to his left knee but was able to ambulate without difficulty. Tetanus Immunization: Unknown [facility] Medical History Displaced fracture of shaft of right ulna Displaced segmental fracture of shaft of radius, right arm, initial encounter for closed fracture Gallstones Kidney cysts Left inguinal hernia Prostate enlargement Screening for intestinal cancer Home Medications apixaban 2.5 mg tablet 2.5 mg PO BID 04/16/19 [History Last Taken Unknown] benzonatate 100 mg capsule 100 mg PO 4X/DAY PRN PRN Cough #15 caps 04/16/19 [Rx Last Taken Unknown] lisinopril 5 mg tablet 5 mg PO DAILY 04/16/19 [History Last Taken Unknown] prednisone 20 mg tablet 40 mg PO DAILY #10 tabs 04/16/19 [Rx Last Taken Unknown] Allergy/AdvReac Type Severity Reaction Status Date / Time Penicillins Allergy Unknown- Verified 07/17/22 08:38 been 30yrs ago Sulfa (Sulfonamide Allergy Unknown-been Verified 07/17/22 08:38 Antibiotics) 30yrs ago Family History Sister Diabetes Surgical History history ORIF right arm Status post laparoscopic hernia repair (~02/2018) Social History Smoking Status: Never smoker how long ago did patient quit smoking: January 2015 alcohol intake: current alcohol intake frequency: a few times a month substance use type: does not use ROS ROS ED Constitutional Constitutional ED: Denies chills or fever(s) Eyes Eyes: Denies change in vision or discharge from eye(s) ENT ENT ED: Denies discharge from eye(s), rhinorrhea or sore throat Cardiovascular Cardiovascular: Reports chest pain and other Details: Right rib pain ; Denies palpitations Respiratory/Chest Respiratory/Chest: Denies cough or dyspnea Gastrointestinal Gastrointestinal: Denies abdominal pain, diarrhea, nausea or vomiting Genitourinary Genitourinary ED: Denies dysuria Musculoskeletal Musculoskeletal: Reports extremity pain; Denies back pain Integumentary Reports Abrasions; Denies rash Neurologic Neurologic: Denies headache(s), paresthesias or weakness Psychiatric Psychiatric: Denies anxiety or depression Allergic/Immunologic Allergic/Immunologic ED: Denies lip swelling or urticaria EXAM Physical Exam Const Vital Signs: 07/17/22 08:39 07/17/22 10:33 Temperature 97.8 F Temperature Source Temporal Pulse Rate 75 Respiratory Rate 18 Respiratory Effort Normal Respiratory Depth Normal Respiratory Pattern Normal Blood Pressure 128/63 H Blood Pressure Mean 84 Pulse Ox 97 Oxygen Delivery Method Room Air Positive well nourished and well developed General Appearance ED: well developed HEENT HEENT Narrative: Patient has superficial abrasions noted over the right lower forehead. There are 2 linear lacerations at the level of the right eyebrow and just beneath. They are rather superficial and bleeding is well controlled. He has periorbital ecchymosis noted. No periorbital bony tenderness and extraocular movements are fully intact. Eyes PERRL and EOMs intact bilaterally Neck Neck Narrative: No C-spine tenderness. Chest Wall inspection of chest normal and palpation of chest normal Resp normal respiratory effort and clear to auscultation bilaterally Cardio regular rhythm Rate: regular rate GI normal to inspection, nondistended, normoactive bowel sounds Back/Spine normal to inspection Extremity Extremity Narrative: Right upper extremity: Arthritic changes noted to his fingers. Small abrasion and blood noted at the base of the third fingernail. No tenderness over the metacarpals or carpal bones. Left upper extremity: Tenderness palpation and mild edema of the left wrist. No tenderness at the elbow or shoulder. Normal cap refill distally with arthritic changes noted to the fingers. Left lower extremity: Superficial abrasions noted over the anterior knee. No bony tenderness with good range of motion. Neuro oriented x3 and moves all extremities Psych mental status grossly normal MDM MDM MDM Narrative Medical decision making narrative: Patient sent for CT scan of the head and C-spine to evaluate for fracture. Right hand x-ray obtained along with left wrist to evaluate for fracture. Right rib series obtained to evaluate for fracture and pneumothorax. Tetanus update is provided. Patient declined anything for pain. Radiography Diagnostic Testing: Clinical Impression(s) from Imaging Studies Brain CT 07/17/22 09:25 IMPRESSION: 1 no acute intracranial process. Electronically Signed: Kady Higgins MD at 10:06 EDT , Cervical Spine CT 07/17/22 09:25 IMPRESSION: No evidence of acute cervical spinal fracture. Multilevel degenerative changes. Atherosclerosis. Electronically Signed: Kady Higgins MD at 10:22 EDT , Hand X-Ray 07/17/22 10:05 IMPRESSION: Degenerative changes. Electronically Signed: Kady Higgins MD at 10:29 EDT , Ribs w/Chest X-Ray 07/17/22 10:05 IMPRESSION: No evidence of displaced rib fracture. Degenerative changes of the shoulders. Superior migration of the humeral heads suggestive of rotator cuff pathology. Electronically Signed: Kady Higgins MD at 10:31 EDT , Wrist X-Ray 07/17/22 10:05 IMPRESSION: Distal radial fracture. Chondrocalcinosis. Degenerative changes. Electronically Signed: Kady Higgins MD at 10:27 EDT , Treatment and Re-Evaluation Narrative: CT scan of the head and C-spine are unremarkable. Right rib series per my interpretation reveals no obvious rib fracture. No pneumothorax. Radiology interpretation is reviewed. Right hand x-ray reviewed by myself. Patient appears to have a small avulsion fracture over the anterior proximal aspect of the third distal phalanx. Radiology interpretation does not comment on this, however patient does have acute injury there and distal aspect of his fingers being held in flexion. Left wrist x-ray per my interpretation reveals distal radius fracture. Radiology interpretation is reviewed and agrees. Tetanus update has been provided. Left wrist is placed in an AP Ortho-Glass splint by myself. Following splint application patient has good cap refill distally and can wiggle fingers. Right upper extremity third finger fracture is splinted with an AlumaFoam splint in extension. The 2 facial lacerations are cleansed. A total of 1 cc of 1% lidocaine is used locally for anesthetic. A total of 4 simple interrupted sutures of 5-0 nylon, 2 sutures in each laceration are placed. Patient has seen [facility] in the past and is referred to them for follow-up. Patient is to have facial sutures removed in 5 to 7 days. Patient declined any pain medication for home and will instead take Tylenol or ibuprofen. Discharge Plan Triage Chief Complaint: Fall ED Provider: Stormy Hall Dx/Rx/DC Orders Clinical Impression: Fall, Closed head injury, Facial laceration, Finger fracture, Fracture of left wrist Instructions: ED Fracture, Finger, Closed, ED Head Injury (Adult), ED Laceration: All Closures, ED Fracture, Wrist, General Prescriptions: No Action lisinopril 5 MG tablet 5 mg PO DAILY apixaban 2.5 MG tablet 2.5 mg PO BID prednisone 20 MG tablet 40 mg PO DAILY Qty: 10 0RF Rx Instructions: With food benzonatate 100 MG capsule 100 mg PO 4X/DAY PRN PRN (Reason: Cough) Qty: 15 0RF Primary Care Provider: Hawk Barahona Referrals: Hawk Barahona MD [Primary Care Provider] - 7 Days for suture removal Carlton Beck MD [Med Staff - Active Staff] - 5-7 Days Disposition Disposition: Home, Self Care Discharge Date/Time: 07/17/22 12:55
== END 2022-07-17 12:55 | disposition home or self-care (01) ==
PROVIDERS: Emergency Provider Emergency Medicine; PCP Family Medicine; Visit Provider Emergency Medicine
DX: S01.111A Laceration without foreign body of right eyelid and periocular area, initial encounter (principal); S01.81XA Laceration without foreign body of other part of head, initial encounter; S52.502A Unspecified fracture of the lower end of left radius, initial encounter for closed fracture; S80.212A Abrasion, left knee, initial encounter; W01.0XXA Fall on same level from slipping, tripping and stumbling without subsequent striking against object, initial encounter; S62.632A Displaced fracture of distal phalanx of right middle finger, initial encounter for closed fracture; Z23 Encounter for immunization
CPT/HCPCS: 12013; 29125; 70450; 71101; 72125; 73110; 73130; 90471; 99284

== ENCOUNTER 2024-01-28 22:16 | Observation (INO) | payer MEDICARE, SELFPAY ==
[2024-01-28 22:17] VITALS: BP 90/68; PULSE 86; RESP 18; TEMP 36.3; O2SAT 97; BMI 23.0
--- NOTE | 2024-01-28 22:24 | EKG12_ITS ---
Test Reason : WEAKNESS Blood Pressure : */* mmHG Vent. Rate : 77 BPM Atrial Rate : * BPM P-R Int : * ms QRS Dur : 88 ms QT Int : 392 ms P-R-T Axes : * -9 -48 degrees QTcB Int : 443 ms Atrial fibrillation -coarse Inferior infarct , age undetermined Possible Anterolateral infarct , age undetermined Abnormal ECG Confirmed by Ousmane Appiah ([id number]), supervising editor trailer KALPANA LEVI ([id number]) on 01/30/2024 5:57:30 AM Referred By: Confirmed By: Ousmane Appiah
--- NOTE | 2024-01-28 22:26 | RAD_ITS ---
EXAM: XR CHEST, 1 VIEW CLINICAL INDICATION: hypotension TECHNIQUE: Frontal view of the chest. COMPARISON: 07/17/2022 FINDINGS: LUNGS AND PLEURAL SPACES: Unremarkable. No consolidation or edema. No pneumothorax. No effusion. HEART: Unremarkable. Cardiac silhouette not enlarged. MEDIASTINUM: Central airways and mediastinal contour are unremarkable. BONES/JOINTS: Unremarkable. No acute fracture. SOFT TISSUES: Unremarkable. RAD/Chest 1 View (Portable) IMPRESSION: No radiographic evidence of acute cardiopulmonary disease. Electronically Signed: Faustino Cisneros MD at 23:24 EST ,
--- NOTE | 2024-01-28 22:32 | EDS_ITS ---
HPI History of Present Illness Chief Complaint: Weakness Informant: patient and family Onset/Context/Timing Onset: Today Context: Gradual Onset Timing: Continuous Current Severity: Moderate Maximum Severity: Moderate Narrative Narrative: 88-year-old male history of prior TIA on Eliquis and history of hypertension. Basically earlier today was at home he lives alone. He was on the toilet he was too weak to get off the toilet family found him there and they want to [place] emergency department. Reportedly had a workup including CAT scan he ambulated there in the ER with his walker and they let him go home. They could not find a specific. Family from taken from that ER to home they can barely even get him in the house he was so weak. Squad was called and they brought him in here. He denies any headache, chest pain, shortness of breath or abdominal pain. He denies any vomiting or melena. No dysuria. Just that he feels weak. Prior similar symptoms: No Recent Illness/Hospitalization: No PFSH PFSH Medical History Fracture of left distal radius Screening for intestinal cancer Kidney cysts Prostate enlargement Gallstones Left inguinal hernia Displaced fracture of shaft of right ulna Displaced segmental fracture of shaft of radius, right arm, initial encounter for closed fracture Home Medications ?Medication ?Instructions ?Recorded ?Last Taken ?Type apixaban 2.5 mg tablet 2.5 mg PO BID 04/16/19 Unknown History lisinopril 5 mg tablet 5 mg PO DAILY 04/16/19 Unknown History Allergy/AdvReac Type Severity Reaction Status Date / Time Penicillins Allergy Unknown- Verified 01/28/24 22:22 been 30yrs ago Sulfa (Sulfonamide Allergy Unknown-been Verified 01/28/24 22:22 Antibiotics) 30yrs ago Family History Sister Diabetes Surgical History Status post laparoscopic hernia repair (~02/2018) history ORIF right arm Social History Smoking Status: Never smoker how long ago did patient quit smoking: January 2015 alcohol intake: current alcohol intake frequency: a few times a month substance use type: does not use ROS ROS ED ROS Narrative Generalized weakness. Constitutional Constitutional ED: Denies chills or fever(s) Eyes Eyes: Denies blurry vision ENT ENT ED: Denies ear pain Respiratory/Chest Respiratory/Chest: Reports cough; Denies dyspnea or dyspnea on exertion Gastrointestinal Gastrointestinal: Reports diarrhea and other Details: 1 episode of diarrhea earlier today. ; Denies abdominal pain, constipation, melena, nausea or vomiting Genitourinary Genitourinary ED: Denies dysuria or hematuria Musculoskeletal Musculoskeletal: Denies arthralgias Integumentary Denies abscess Neurologic Neurologic: Denies headache(s) Psychiatric Psychiatric: Denies anxiety Endocrine Endocrinology: Denies cold intolerance Hematologic/Lymphatic Hematologic/Lymphatic: Reports none Allergic/Immunologic Allergic/Immunologic ED: Denies mouth swelling, tongue swelling or urticaria EXAM Physical Exam Narrative Exam Narrative: 88-year-old male initial vital signs blood pressure 90/68 otherwise afebrile and unremarkable. Pulse ox 97% on room air no hypoxia. H EENT exam pupils round react to light. Extra motions are intact. Mytrex membranes. No trauma to his face or scalp. No facial droop. Neck nontender. Back nontender. Lungs clear to auscultation bilaterally. Heart A-fib rate of 77. No murmur. Chest wall ribs nontender. Abdomen soft nontender. Moving all 4 extremities. Nontender no edema. He can lift either leg off the bed. Normal dorsi plantarflexion. Equal symmetrical sand cutter strength. Neurologically is awake and alert. Answer questions following commands. No focal motor deficits. 2 family members present in room. Const Vital Signs: 01/28/24 22:17 01/28/24 22:22 Temperature 97.4 F L Temperature Source Temporal Pulse Rate 86 Respiratory Rate 18 Respiratory Effort Normal Respiratory Pattern Normal Blood Pressure 90/68 Blood Pressure Mean 75 Pulse Ox 97 Oxygen Delivery Method Room Air Positive well nourished and well developed; Negative for obese, cachectic, contractures or unkempt General Appearance ED: well developed and NAD; Negative for unkempt, cachectic, contractures, cyanotic, diaphoretic or pallor Nutritional Appearance: Negative for cachectic or obese HEENT Reports moist mucous membranes Negative for trauma or tenderness Eyes PERRL and EOMs intact bilaterally General Eye ED: Negative for pale conjunctiva or scleral icterus Neck no lymphadenopathy, supple and no JVD General: Negative for tenderness Lymph Lymphatic: Negative for other Chest Wall inspection of chest normal and palpation of chest normal Resp normal respiratory effort and clear to auscultation bilaterally Effort and Inspection: Negative for retractions Auscultation: Negative for rales, rhonchi, wheezes or diminished lung sounds Cardio Negative for regular rate or regular rhythm Rhythm: abnormal rhythm GI normal to inspection, nondistended, normoactive bowel sounds, non-tender, non- distended and no masses Palpation: soft; Negative for tender, guarding or rebound tenderness present Back/Spine no CVA tenderness General Back: Negative for CVA tenderness Cervical Spine: Negative for cervical spine tenderness Thoracic Spine / Upper Back: Negative for thoracic spinal tenderness Lumbar Spine / Lower Back: Negative for lumbar spinal tenderness Extremity normal to inspection General Extremety ED: Negative for edema, tenderness or other findings General Extremity: Negative for edema or other findings Neuro oriented x3 and CN's II-XII intact bilaterally Sensorium / Orientation: alert Motor Exam: strength 5/5 throughout Psych mental status grossly normal Appearance: Negative for unkempt Attitude: No agitated Mood & Affect: Negative for depressed, anxious or tearful Skin no rashes or lesions noted and no wounds General Skin Exam: Negative for jaundice or pallor Trauma: Negative for abrasion Wounds: Negative for wounds noted MDM MDM MDM Narrative Medical decision making narrative: 88-year-old male generalized weakness. Was already seen in another emergency department earlier today which were trying to get their workup including the CAT scan. Exam is pretty benign he has chronic A-fib he is on a blood thinner Eliquis. I will get screening labs. He does present initially hypotensive with a blood pressure 90/68. To be given a liter normal saline. Repeat exam at 11:58 PM unchanged. Patient is willing to be admitted overnight for further evaluation possible physical therapy evaluation tomorrow to see if he is drawn to be discharged home. Daughters state to me and the patient that they have wanted him to be in assisted living for around a year because of his difficulties at home. Patient's not been willing to do that as of yet. Currently his blood pressure is 134/72. History & Record Review Discussion w/independent historian: Patient Additional record(s) reviewed:: Prior inpatient record, Prior outpatient record, Prior ED visit and Prior labs Lab Data Attestation: I reviewed the patient's lab results. Lab results narrative: CBC normal. White count of 6. H&H 15 and 44. Platelets 262. Electrolytes unremarkable. Gap 8. Normal BUN and creatinine. Glucose 148. Lactic acid normal at 1.9 UA normal. No signs of infection. Chest x-ray unremarkable. EKG chronic A-fib rate of 77. COVID and flu negative. Labs: Laboratory Results - last 24 hr 01/28/24 01/28/24 22:30 22:45 WBC 6.3 RBC 4.56 L Hgb 15.2 Hct 44.3 MCV 97.1 H MCH 33.3 H MCHC 34.3 RDW Std Deviation 48.3 H RDW Coeff of Gladis 13.5 Plt Count 262 MPV 9.9 Immature Gran % (Auto) 0.600 Neut % (Auto) 75.4 H Lymph % (Auto) 11.6 L [place] % (Auto) 11.6 H Eos % (Auto) 0.2 Baso % (Auto) 0.6 Absolute Neuts (auto) 4.7 Absolute Lymphs (auto) 0.73 L Nucleated RBC % 0 Sodium 137 Potassium 3.5 Chloride 104 Carbon Dioxide 25.0 Anion Gap 8 BUN 12 Creatinine 0.91 Estim Creat Clear Calc 49.66 Est GFR (MDRD) Af Amer 101 Est GFR (MDRD) Non-Af 84 BUN/Creatinine Ratio 13.2 Glucose 148 H Lactic Acid 1.9 Calcium 8.4 L Total Bilirubin 0.90 AST 16 ALT 9 L Alkaline Phosphatase 60 Troponin I High Sens 39 Total Protein 7.4 Albumin 3.7 Globulin 3.7 Albumin/Globulin Ratio 1.0 Urine Color Yellow Urine Clarity Clear Urine pH 5.0 Ur Specific [place] 1.025 Urine Protein 30 H Urine Glucose (UA) Normal Urine Ketones 15 H Urine Occult Blood 50 H Urine Nitrite Negative Urine Bilirubin 1 H Urine Urobilinogen 1 H Ur Leukocyte Esterase Negative Urine RBC 5-10 SEEN Urine WBC 0 SEEN Ur Squamous Epith Cells 0-5 SEEN Amorphous Sediment 1+ URATE Urine Bacteria 0 SEEN Urine Mucus 0 SEEN Radiography Chest X-Ray - ED: 1 View, Read by ED Physician, Normal, Heart, Lungs, Mediastinum, Bony Structures, No Acute Disease and Chronic Changes Diagnostic Testing: Clinical Impression(s) from Imaging Studies Chest X-Ray 01/28/24 22:26 IMPRESSION: No radiographic evidence of acute cardiopulmonary disease. Electronically Signed: Faustino Cisneros MD at 23:24 EST , Chest x-ray, portable, single view interpreted by myself shows normal cardiac silhouette mediastinum. Normal lung alex. Chronic changes no acute process. No pneumonia. No pulmonary edema. Rhythm Strip Rate: 77 Ectopy: None EKG Initial EKG: Attestation: I personally reviewed and interpreted this EKG as follows: Interpretation: Atrial Fibrillation Comments: A-fib rate of 77. No acute signs of NH or ischemia. Prior EKG tracings: available for review Prior: Unchanged Discharge Plan Dx/Rx/DC Orders Clinical Impression: Generalized weakness, Adult failure to thrive, History of atrial fibrillation, Chronic anticoagulation Disposition Disposition: Acute Care Hospital [facility]
[2024-01-28] MEDS: 0.9% Normal Saline (1000mL) 1,000 ML 1000 ML IV (22:36)
[2024-01-28 22:47] LABS: Absolute Lymphocyte Count 0.73 X10^3/uL (0.83-4.51); Absolute Neutrophil Count 4.7 X10^3/uL (2.0-7.7); Basophil# 0.04 X10^3/uL; Basophil% 0.6 % (0-1); Eosinophil# 0.01 X10^3/uL; Eosinophils% 0.2 % (0-5); Hematocrit 44.3 % (40-54); Hemoglobin 15.2 g/dL (13.0-16.5); Lymphocyte # 0.73 X10^3/ul (0.83-4.51); Lymphocyte % 11.6 % (19-41); Mean Corp Hgb Conc 34.3 g/dL (32-36); Mean Corpuscular Hgb 33.3 pg (27.0-32.0); Mean Corpuscular Volume 97.1 fL (80-94); Mean Platelet Vol. 9.9 fl (6.2-12.0); Monocyte# 0.73 X10^3/uL; Monocyte% 11.6 % (0-10); NRBC Flagged by Analyzer 0 % (0-5); Neutrophil # 4.73 X10^3/uL (2.7-7.7); Neutrophil % 75.4 % (47-70); Platelet Count 262 K/mm3 (150-450); RBC Distribution Width CV 13.5 % (11.6-14.6); RBC Distribution Width SD 48.3 fl (35.1-43.9); Red Blood Count 4.56 M/mm3 (4.6-6.2); White Blood Count 6.3 K/mm3 (4.4-11.0)
[2024-01-28 22:53] LABS: Bacteria 0 SEEN /hpf (None Seen); Mucous, Urine 0 SEEN /hpf (<or=2+); White Blood Cells 0 SEEN /hpf (0-5)
[2024-01-28 23:01] LABS: Color, Urine Yellow (Yellow); Glucose, Dipstick Normal (Normal); Ketone-Dipstick 15 mg/dl (Negative); Leukocyte Esterase-Dipstick Negative /ul (Negative); Nitrite-Dipstick Negative (Negative); Occult Blood-Urine 50 /ul (Negative); Protein-Dipstick 30 mg/dl (Negative); Specific Gravity, Urine 1.025 (1.002-1.030); Urine Clarity Clear (Clear); Urine Urobilinogen 1 mg/dl (Normal)
[2024-01-28 23:08] LABS: AST(SGOT) 16 U/L (15-37); Alanine Aminotransfer ALT/SGPT 9 U/L (16-61); Albumin, Serum 3.7 g/dL (3.2-5.0); Alkaline Phosphatase 60 U/L (45-117); Anion Gap 8 (5-15); BUN 12 mg/dL (7-18); BUN/Creat Ratio 13.2 RATIO (10-20); Calcium,Total 8.4 mg/dL (8.5-10.1); Chloride 104 mmol/L (98-107); Creatinine, Serum 0.91 mg/dL (0.70-1.30); EST Glomerular Filtration Rate 84 mL/min (>60); Est Glom Filt Rate - Afr Amer 101 mL/min (>60); Estimated Creatinine Clearance 49.66 ml/min; Globulin 3.7 g/dL (2.2-4.2); Glucose 148 mg/dL (74-106); Potassium 3.5 mmol/L (3.5-5.1); Protein, Total 7.4 g/dL (6.4-8.2); Sodium Level 137 mmol/L (136-145); Troponin-I HS 39 pg/mL (3.0-78.0)
[2024-01-28 23:13] LABS: Urine Bilirubin Dipstick 1 mg/dL (Negative)
[2024-01-28 23:14] LABS: Amorphous Sediment 1+ URATE; Red Blood Cells-Urine 5-10 SEEN /hpf (0-5); Squamous Epithelial Cells - UA 0-5 SEEN /hpf (0-5)
[2024-01-28 23:41] LABS: Lactic Acid 1.9 mmol/L (0.4-1.9)
[2024-01-29 00:17] VITALS: BP 150/82; PULSE 80; RESP 17; O2SAT 98
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
[2024-01-29 00:32] VITALS: BP 150/82; PULSE 87; RESP 12; TEMP 36.9; O2SAT 100
[2024-01-29 01:00] VITALS: BMI 20.9
[2024-01-29 01:16] VITALS: BP 148/78; PULSE 77; RESP 18; TEMP 36.8; O2SAT 98
[2024-01-29] MEDS: 0.9% Normal Saline (1000mL) 1,000 ML 70 ML IV (02:42)
[2024-01-29 04:00] VITALS: BP 121/61; PULSE 66; RESP 16; TEMP 36.8; O2SAT 97
[2024-01-29 05:24] VITALS: BMI 20.9
[2024-01-29 07:04] LABS: Absolute Lymphocyte Count 0.96 X10^3/uL (0.83-4.51); Absolute Neutrophil Count 2.7 X10^3/uL (2.0-7.7); Basophil# 0.03 X10^3/uL; Basophil% 0.7 % (0-1); Eosinophil# 0.04 X10^3/uL; Eosinophils% 0.9 % (0-5); Hematocrit 41.7 % (40-54); Hemoglobin 12.8 g/dL (13.0-16.5); Lymphocyte # 0.96 X10^3/ul (0.83-4.51); Lymphocyte % 21.1 % (19-41); Mean Corp Hgb Conc 30.7 g/dL (32-36); Mean Corpuscular Hgb 34.4 pg (27.0-32.0); Mean Corpuscular Volume 112.1 fL (80-94); Mean Platelet Vol. 10.4 fl (6.2-12.0); Monocyte# 0.82 X10^3/uL; Monocyte% 18.1 % (0-10); NRBC Flagged by Analyzer 0 % (0-5); Neutrophil # 2.66 X10^3/uL (2.7-7.7); Neutrophil % 58.5 % (47-70); Platelet Count 166 K/mm3 (150-450); RBC Distribution Width CV 13.3 % (11.6-14.6); RBC Distribution Width SD 55.9 fl (35.1-43.9); Red Blood Count 3.72 M/mm3 (4.6-6.2); White Blood Count 4.5 K/mm3 (4.4-11.0)
--- NOTE | 2024-01-29 07:57 | PCM.PN.HOSP ---
Reason for Visit Reason for Visit: Diagnoses Chronic atrial fibrillation, unspecified (01/29/24) Hypotension, unspecified (01/29/24) Unspecified osteoarthritis, unspecified site (01/29/24) Other fecal abnormalities (01/29/24) Difficulty in walking, not elsewhere classified (01/29/24) Weakness (01/29/24) Subjective Subjective Patient is an 88-year-old gentleman admitted with progressive generalized weakness Objective Data Objective Data Vital Signs: Vital Signs Temp Pulse Resp BP Pulse Ox O2 Del Method 98.2 F 66 16 121/61 H 97 Room Air 01/29/24 04:00 01/29/24 04:00 01/29/24 04:00 01/29/24 04:00 01/29/24 04:00 01/29/24 04:00 Oxygen Delivery Method Room Air Weight: 62.5 kg Body Mass Index (BMI) 20.9 Intake & Output: Intake and Output for Last 24 Hours 01/27/24 01/28/24 01/29/24 23:59 23:59 23:59 Intake Total 1000 / 1000 Balance 1000 / 1000 Lab / Micro Data 01/29/24 06:33 01/29/24 06:33 Labs: Laboratory Results - last 24 hr 01/28/24 22:30: WBC 6.3, RBC 4.56 L, Hgb 15.2, Hct 44.3, MCV 97.1 H, MCH 33.3 H, MCHC 34.3, RDW Std Deviation 48.3 H, RDW Coeff of Gladis 13.5, Plt Count 262, MPV 9.9, Immature Gran % (Auto) 0.600, Neut % (Auto) 75.4 H, Lymph % (Auto) 11.6 L, [place] % (Auto) 11.6 H, Eos % (Auto) 0.2, Baso % (Auto) 0.6, Absolute Neuts (auto) 4.7, Absolute Lymphs (auto) 0.73 L, Nucleated RBC % 0, Sodium 137, Potassium 3.5, Chloride 104, Carbon Dioxide 25.0, Anion Gap 8, BUN 12, Creatinine 0.91, Estim Creat Clear Calc 49.66, Est GFR (MDRD) Af Amer 101, Est GFR (MDRD) Non-Af 84, BUN/Creatinine Ratio 13.2, Glucose 148 H, Lactic Acid 1.9, Calcium 8.4 L, Total Bilirubin 0.90, AST 16, ALT 9 L, Alkaline Phosphatase 60, Troponin I High Sens 39, Total Protein 7.4, Albumin 3.7, Globulin 3.7, Albumin/Globulin Ratio 1.0 01/28/24 22:45: Urine Color Yellow, Urine Clarity Clear, Urine pH 5.0, Ur Specific [place] 1.025, Urine Protein 30 H, Urine Glucose (UA) Normal, Urine Ketones 15 H, Urine Occult Blood 50 H, Urine Nitrite Negative, Urine Bilirubin 1 H, Urine Urobilinogen 1 H, Ur Leukocyte Esterase Negative, Urine RBC 5-10 SEEN, Urine WBC 0 SEEN, Ur Squamous Epith Cells 0-5 SEEN, Amorphous Sediment 1+ URATE, Urine Bacteria 0 SEEN, Urine Mucus 0 SEEN 01/29/24 06:33: WBC 4.5, RBC 3.72 L, Hgb 12.8 L, Hct 41.7, MCV 112.1 H D, MCH 34.4 H, MCHC 30.7 L D, RDW Std Deviation 55.9 H, RDW Coeff of Gladis 13.3, Plt Count 166, MPV 10.4, Immature Gran % (Auto) 0.700, Neut % (Auto) 58.5, Lymph % (Auto) 21.1, [place] % (Auto) 18.1 H, Eos % (Auto) 0.9, Baso % (Auto) 0.7, Absolute Neuts (auto) 2.7, Absolute Lymphs (auto) 0.96, Nucleated RBC % 0 Micro: Microbiology 01/28/24 22:45 Mucosa - Nose SARS-CoV-2, Influenza & RSV (PCR) - Final Radiography Diagnostic Testing: Radiology Impression Chest X-Ray 01/28/24 22:26 IMPRESSION: No radiographic evidence of acute cardiopulmonary disease. Electronically Signed: Faustino Cisneros MD at 23:24 EST , Rhythm Strip Rate: 77 Ectopy: None Physical Exam Narrative GENERAL: cooperative HEENT: Atraumatic; normocephalic EYES; Anicteric, Normal Conjunctiva NECK; supple, normal thyroid, RESPIRATORY: Diminished to auscultation CARDIOVASCULAR: Regular S1 S2, GI: soft, normoactive bowel sounds, : No Renal angle tenderness; EXTREMITIES: No edema, no clubbing, MUSCULOSKELETAL: no muscle wasting NEURO: Awake; no lateralizing signs. SKIN: No Rash PSYCH; Flat affect Assessment & Plan Assessment/Plan (1) Ambulatory dysfunction: (2) Hypotension: QUALIFIERS: Hypotension type: unspecified hypotension type Qualified Code(s): I95.9 - Hypotension, unspecified (3) Loose stools: PLAN: Plan Patient is an 88-year-old gentleman admitted with progressive generalized weakness 1. Physical deconditioning ? Requested for PT OT eval and social media marketing specialist to assist with discharge planning 2. Hypertension ? Blood pressure controlled, home medications continued with dose adjustment as needed 3. Chronic A-fib ? Rate controlled on systemic anticoagulation with apixaban continue 3. Coronary artery disease ? Remote history of previous VT with no intervention performed 5. Diarrhea ? Patient was placed under enteric precautions while ruling out C. difficile 6. DVT prophylaxis ? Patient is on apixaban Charges/Coding Visit Charges Inpatient E&M: 33752 Subs Hosp L2
[2024-01-29 08:13] LABS: ALB/GLOB Ratio 0.9 RATIO (0.9-2.4); AST(SGOT) 14 U/L (15-37); Alanine Aminotransfer ALT/SGPT 8 U/L (16-61); Albumin, Serum 2.8 g/dL (3.2-5.0); Alkaline Phosphatase 43 U/L (45-117); Anion Gap 5 (5-15); BUN 10 mg/dL (7-18); BUN/Creat Ratio 14.2 RATIO (10-20); Calcium,Total 7.8 mg/dL (8.5-10.1); Chloride 109 mmol/L (98-107); EST Glomerular Filtration Rate 112 mL/min (>60); Est Glom Filt Rate - Afr Amer 136 mL/min (>60); Estimated Creatinine Clearance 55.34 ml/min; Glucose 84 mg/dL (74-106); Magnesium 2.3 mg/dL (1.6-2.6); Phosphorus 2.7 mg/dL (2.5-4.9); Potassium 3.5 mmol/L (3.5-5.1); Protein, Total 5.8 g/dL (6.4-8.2); Sodium Level 138 mmol/L (136-145); Thyroid Stim Hormone (TSH) 0.914 uIU/mL (0.358-3.740)
[2024-01-29 09:40] VITALS: BP 133/53; PULSE 76; RESP 16; TEMP 36.6; O2SAT 94
[2024-01-29] MEDS: APIXABAN 2.5 MG TABLET (WCH) PO (09:41)
--- NOTE | 2024-01-29 10:03 | CASEMGMT ---
YOLI LEMONS Assessment: Face to Face with pt for initial transition planning/care coordination assessment. YOLI LEMONS introduced self and role at [facility], pt voices understanding and consents to assessment. Pt is A&O x4 and answers all questions appropriately at this time. Pt lying in bed in no distress. Care providers, pharmacy, and demographics verified/updated. Admitting Dx: Acute on Chronic generalized weakness PCP: Jun Specialists: Denies Preferred Pharmacy:[facility] Insurance: [employer] [facility] Prescription Benefit: yes LNOK: Daughters Aisha Palomo. Living Arrangements: Pt lives alone in a 1 story home with 6 or 7 steps to enter. ADLs: Pt I at baseline. Transportation: Pt family provides transportation. DME: Walker, Cane, Shower bench. HHC/SNF: Denies Hx of. Pt states no concerns with going home at time of dc. Pt states no further concerns/needs. CM to follow. Advised pt to ask CM if any further question/concerns/needs arise, voices understanding. Pt Goal: Home Plan: Home, follow therapy for recommendations. Boyd KENT CM
--- NOTE | 2024-01-29 14:18 | CASEMGMT ---
Discharge Planning A list of HH providers including quality and resource use data and consistent with the patient's preferred geographic region, medical needs, and insurance network was created in [employer] Guide.? This list was provided to the RN VESTA. Mone Randall, Discharge Planning Asst.
--- NOTE | 2024-01-29 14:39 | CASEMGMT ---
Addendum entered by Zena Sauceda 01/29/24 15:33: YOLI LEMONS received call back from [facility], they are able to accept patient will planned start of care for . RN CM updated patient and family regarding [facility] acceptance and start of care. Patient and family had no furhter questions or concerns. Original Note: YOLI LEMONS reviewed progress with therapy, patient ambulated SBA 220FT. YOLI LEMONS in to discuss progress with therapy with patient and daughters. RN CM discuss HHC and home bound status. Patient and daughters agreeable to [facility]. YOLI LEMONS provided HHC list, patient and family prefer [facility]. YOLI LEMONS provided Private Duty List, Transportation resources, and [place] services. Patient and family had no further questions or concerns. YOLI LEMONS made referral to [facility], awaiting acceptance.
--- NOTE | 2024-01-29 14:42 | PCM.DC.SUM ---
Providers Date of Admission: 01/29/24 Date of Discharge: 01/29/24 Primary Care Physician: Dr. Hawk Barahona MD Reason For Visit: ACUTE ON CHRONIC GENERALIZED WEAKNESS WITH Diagnosis Discharge Diagnosis (1) Ambulatory dysfunction: Status: Acute Code(s): R26.2 - Difficulty in walking, not elsewhere classified (2) Hypotension: Status: Acute Code(s): I95.9 - Hypotension, unspecified Qualifiers: Hypotension type: unspecified hypotension type Qualified Code(s): I95.9 - Hypotension, unspecified (3) Loose stools: Status: Acute Code(s): R19.5 - Other fecal abnormalities Plan Patient is an 88-year-old gentleman admitted with progressive generalized weakness 1. Physical deconditioning ? Requested for PT OT eval and clinical social work aide to assist with discharge planning ? Patient was discharged home with home health with therapy following assessment by physical and Occupational Therapy 2. Hypertension ? Blood pressure controlled, home medications continued with dose adjustment as needed 3. Chronic A-fib ? Rate controlled on systemic anticoagulation with apixaban continue 3. Coronary artery disease ? Remote history of previous MO with no intervention performed 5. Diarrhea ? Patient was placed under enteric precautions while ruling out C. difficile 6. DVT prophylaxis ? Patient is on apixaban Medications at Discharge Home Medications apixaban 2.5 mg tablet 2.5 mg PO BID 04/16/19 lisinopril 5 mg tablet 5 mg PO DAILY 04/16/19 Hospital Course Summary of Care Provided Minutes Spent on Discharge: 32 Physical Exam Narrative GENERAL: cooperative HEENT: Atraumatic; normocephalic EYES; Anicteric, Normal Conjunctiva NECK; supple, normal thyroid, RESPIRATORY: Diminished to auscultation CARDIOVASCULAR: Regular S1 S2, GI: soft, normoactive bowel sounds, : No Renal angle tenderness; EXTREMITIES: No edema, no clubbing, MUSCULOSKELETAL: no muscle wasting NEURO: Awake; no lateralizing signs. SKIN: No Rash PSYCH; Flat affect Weight / BMI Weight Weight: 62.5 kg Body Mass Index (BMI) 20.9 ABG / Lab / Microbiology Data 01/29/24 06:33 01/29/24 06:33 Laboratory: Laboratory Results - last 24 hr 01/28/24 22:30: WBC 6.3, RBC 4.56 L, Hgb 15.2, Hct 44.3, MCV 97.1 H, MCH 33.3 H, MCHC 34.3, RDW Std Deviation 48.3 H, RDW Coeff of Gladis 13.5, Plt Count 262, MPV 9.9, Immature Gran % (Auto) 0.600, Neut % (Auto) 75.4 H, Lymph % (Auto) 11.6 L, [place] % (Auto) 11.6 H, Eos % (Auto) 0.2, Baso % (Auto) 0.6, Absolute Neuts (auto) 4.7, Absolute Lymphs (auto) 0.73 L, Nucleated RBC % 0, Sodium 137, Potassium 3.5, Chloride 104, Carbon Dioxide 25.0, Anion Gap 8, BUN 12, Creatinine 0.91, Estim Creat Clear Calc 49.66, Est GFR (MDRD) Af Amer 101, Est GFR (MDRD) Non-Af 84, BUN/Creatinine Ratio 13.2, Glucose 148 H, Lactic Acid 1.9, Calcium 8.4 L, Total Bilirubin 0.90, AST 16, ALT 9 L, Alkaline Phosphatase 60, Troponin I High Sens 39, Total Protein 7.4, Albumin 3.7, Globulin 3.7, Albumin/Globulin Ratio 1.0 01/28/24 22:45: Urine Color Yellow, Urine Clarity Clear, Urine pH 5.0, Ur Specific [place] 1.025, Urine Protein 30 H, Urine Glucose (UA) Normal, Urine Ketones 15 H, Urine Occult Blood 50 H, Urine Nitrite Negative, Urine Bilirubin 1 H, Urine Urobilinogen 1 H, Ur Leukocyte Esterase Negative, Urine RBC 5-10 SEEN, Urine WBC 0 SEEN, Ur Squamous Epith Cells 0-5 SEEN, Amorphous Sediment 1+ URATE, Urine Bacteria 0 SEEN, Urine Mucus 0 SEEN 01/29/24 06:33: WBC 4.5, RBC 3.72 L, Hgb 12.8 L, Hct 41.7, MCV 112.1 H D, MCH 34.4 H, MCHC 30.7 L D, RDW Std Deviation 55.9 H, RDW Coeff of Gladis 13.3, Plt Count 166, MPV 10.4, Immature Gran % (Auto) 0.700, Neut % (Auto) 58.5, Lymph % (Auto) 21.1, [place] % (Auto) 18.1 H, Eos % (Auto) 0.9, Baso % (Auto) 0.7, Absolute Neuts (auto) 2.7, Absolute Lymphs (auto) 0.96, Nucleated RBC % 0, Sodium 138, Potassium 3.5, Chloride 109 H, Carbon Dioxide 24.0, Anion Gap 5, BUN 10, Creatinine 0.70, Estim Creat Clear Calc 55.34, Est GFR (MDRD) Af Amer 136, Est GFR (MDRD) Non-Af 112, BUN/Creatinine Ratio 14.2, Glucose 84, Calcium 7.8 L, Phosphorus 2.7, Magnesium 2.3, Total Bilirubin 0.70, AST 14 L, ALT 8 L, Alkaline Phosphatase 43 L, Total Protein 5.8 L, Albumin 2.8 L, Globulin 3.0, Albumin/Globulin Ratio 0.9, TSH 0.914 Microbiology: Microbiology 01/28/24 22:45 Mucosa - Nose SARS-CoV-2, Influenza & RSV (PCR) - Final Radiography Diagnostic Testing: Radiology Impression Chest X-Ray 01/28/24 22:26 IMPRESSION: No radiographic evidence of acute cardiopulmonary disease. Electronically Signed: Faustino Cisneros MD at 23:24 EST , D/C Instructions Discharge Diet: No restrictions Discharge Activity: Return to Normal Activity Call your doctor if you observe: Fever of 101 or Higher, Shortness of breath, Fainting spells and Chest pain DC O2, CPAP, BIPAP Needs Additional Home O2 Discharge instructions: No DC home with Oxygen: No Meaningful Use Info Meaningful Use Meaningful Use Diagnoses (Choose all that apply): None applicable Ischemic Stroke Statin Dosing Therapy Reference: STATIN DOSE THERAPY REFERENCE: * Patients > 75 years receive moderate or high dose statin therapy. * Patients 75 years or YOUNGER should receive HIGH intensity statin dose unless contraindicated. You will be required to document reason for non-treatment if statin daily dose does not meet guidelines. HIGH DOSE STATIN THERAPY DAILY Atorvastatin > than or = to 40 mg Rosuvastatin > than or = to 20 mg Amlodipine + Atorvastatin > than or = to 2.5/40 mg Ezetimibe + Simvastatin 10/80 mg Simvastatin 80mg Discharge Plan Admission Admit Date/Time: 01/29/24 00:40 Attending Provider: Behzad Tejada Primary Care Provider: Hawk Barahona Consulting Providers: Behzad Mcmillan Discharge Orders/Prescriptions Prescriptions: Continued lisinopril 5 MG tablet 5 mg PO DAILY apixaban 2.5 MG tablet 2.5 mg PO BID Referrals / Follow Up: Hawk Barahona MD [Primary Care Provider] - Disposition Disposition (needs filled in before D/C Order can be placed): Home Health Service Charges/Coding Visit Charges Inpatient E&M: 55551 Disch Hosp >30min
[2024-01-29 14:45] VITALS: BP 128/56; PULSE 63; RESP 18; TEMP 36.6; O2SAT 97
--- NOTE | 2024-01-29 14:47 | CASEMGMT ---
Met with patient to complete CLEMENT form. CLEMENT form explained to patient who voiced understanding and signed form. Original form placed in pt?s chart and copy provided to patient. Mone Randall, Discharge Planning Asst
[2024-01-29] MEDS: Benzonatate 100 MG Capsule PO (15:44)
--- NOTE | 2024-01-29 16:33 | PHA.DC.MR.R ---
Pharmacy MS Med Reconciliation Pharmacy Service has performed discharge medication reconciliation for this patient. The patient's discharge medication list was reviewed for discrepancies and discrepancies were resolved. Medications at Discharge Home Medications apixaban 2.5 mg tablet 2.5 mg PO BID blood thinner 04/16/19 lisinopril 5 mg tablet 5 mg PO DAILY blood pressure 04/16/19
== END 2024-01-29 14:45 | disposition home health service (06) ==
LOC: ED 01-29 00:18 → PCU 01-29 00:52
PROVIDERS: Admitting Provider Internal Medicine; Emergency Provider Emergency Medicine; PCP Family Medicine; Visit Provider Internal Medicine
DX: R26.2 Difficulty in walking, not elsewhere classified (principal); I48.20 Chronic atrial fibrillation, unspecified; I25.10 Atherosclerotic heart disease of native coronary artery without angina pectoris; R19.7 Diarrhea, unspecified; I95.9 Hypotension, unspecified; Z87.891 Personal history of nicotine dependence; I10 Essential (primary) hypertension; R53.1 Weakness; Z79.01 Long term (current) use of anticoagulants; M19.90 Unspecified osteoarthritis, unspecified site; I25.2 Old myocardial infarction; Z79.899 Other long term (current) drug therapy; N40.0 Benign prostatic hyperplasia without lower urinary tract symptoms
CPT/HCPCS: 36415; 71045; 80053; 81001; 83605; 83735; 84100; 84443; 84484; 85025; 87631; 93005; 96360; 96361; 97162; 97166; 99221; 99285; A4216; G0378